=== PATIENT | male | born 1980 | race Caucasian/White ===

== ENCOUNTER 2017-11-10 00:57 | Inpatient (IN) | payer MEDICAID ==
[2017-11-10] MEDS ORDERED: IPRATROPIUM/ALBUTEROL 3 ML DEYVIAL IH ONE (01:04)
--- NOTE | 2017-11-10 01:09 | EDPHY ---
H & P HPI/ROS: HPI CHIEF COMPLAINT: Denies weakness, worsening shortness of breath, rash, edema peripheral, picc line clot. HISTORY OF PRESENT ILLNESS: Patient is a 36-year-old male, he is insulin- dependent diabetic, he states that he was at [facility] from October 24 until yesterday where he was released to rehab at [facility]. He arrives to the emergency room by EMS for shortness of breath and generalized weakness. EMS reports that they thought he was having allergic reaction to naficillin. Patient reports that he has a penicillin allergy however he has had a right arm PICC line of which she was getting nafcillin infused through. He has received multiple doses of this. He states he started feeling worsening shortness of breath tonight, and states that he has erythematous rash and not sure exactly how long it has been there for but thought it was worse tonight. Additionally the patient has a right arm PICC line. When they tried to infuse his antibiotic tonight they report that his PICC line it clotted. Due to constellation of his PICC line not working, rash, worsening peripheral edema, shortness of breath and generalized weakness he was sent to the emergency room for evaluation. Patient is currently wearing 5 L nasal cannula at [facility]. Past Medical History: Patient reports to me insulin-dependent diabetic, and recent hospitalization for pneumonia. Past Surgical History: Denies recent surgery Social History: Denies daily use drugs alcohol tobacco products. Resides and shortened [place]. Recent hospitalization at [facility]. Admitted to [facility] for rehab. Family History: Noncontributory ROS REVIEW OF SYSTEMS: A comprehensive 10 point review of systems is otherwise negative aside from elements mentioned in the history of present illness. Exam Constitutional appears nontoxic, triage nursing summary reviewed, vital signs reviewed, awake/alert. Noted to be hypoxic on room air 81%. Eyes normal conjunctivae and sclera, EOMI, PERRLA. HENT normal inspection, atraumatic, moist mucus membranes, no epistaxis, neck supple/ no meningismus, no raccoon eyes. Respiratory clear lung sounds throughout right lung field, however left lung field crackles throughout, diminished. Cardiovascular rate normal, regular rhythm, no murmur, no edema, distal pulses normal. Gastrointestinal soft, non-tender, no rebound, no guarding, normal bowel sounds, no distension, no pulsatile mass. Genitourinary no CVA tenderness. Musculoskeletal right arm PICC line. Does not appear infected. no midline vertebral tenderness, full range of motion, no calf swelling, no tenderness of extremities, no meningismus, good pulses, neurovascularly intact. Skin significant peripheral edema pitting 3+ bilaterally, edematous abdomen, additionally petechiae non blanchable throughout his legs and abdomen, as well as a waistline rash that appears to be fungal. Significant edema around his scrotum but nontender. Neurologic awake, alert and oriented x 3, AAOx3, moves all 4 extremities equally, motor intact, sensory intact, CN II-XII intact, normal cerebellar, normal vision, normal speech. Psychiatric normal mood/affect. Heme/Lymph/Immune no lymphadenopathy. Differential Diagnosis: Includes but is not limited to in a particular drug reaction, worsening pneumonia, significant peripheral edema, 3rd spacing of fluid, sepsis, DIC Medical Decision Making: Plan for this patient obtain records from [facility], chest x-ray, blood work, lactic acid, blood cultures, re-evaluate. Re-evaluation: Chest x-ray has been reviewed one-view. Complete white out of the left lung field. Patchy infiltrates seen throughout the right lung field. Given the look of this chest x-ray will proceed with CT angiogram chest. EKG interpretation by me on record in [facility] system. Impression time of EKG 119: Sinus tachycardia rate of 106. Micro amplitude noted throughout all leads. 0128AM: Due to this patient's micro amplitude seen on the EKG. I performed a bedside ultrasound cardiac window. The cardiac evaluation with bedside ultrasound performed by myself does not show a large effusion there is a trace effusion. The heart has good squeeze. Appears somewhat hyperdynamic. 0236: Patient's CT scan called to me by Dr. Lopez. This shows extensive pneumonia. Bilateral pneumonia infiltrates, cavitary lesions, bilateral pleural effusions, extensive pneumonia. 0237: I have ordered this patient broad-spectrum antibiotics including IV vancomycin and IV cefepime he has a penicillin allergy. Additionally at this time this patient is remarkably hemodynamically stable despite his x-ray and CT results. He does appear volume overloaded. I have held off on IV fluids. He has not been hypotensive. His blood work has been reviewed he has a white count that is not elevated. There is no bandemia or left shift. His current vitals blood pressure 116/72, heart rate 107, 90% on 5 L. He is afebrile. I have asked the hospitalist service to admit this patient. Given the extensive disease on his CT scan x-ray I have ordered him an intensive care unit bed for hypoxia and extensive pneumonia. Critical Care: Total Critical Care Time Spent Managing this Patient: 65 Minutes. This time was spent Exclusively with this patient. This Care was exclusive of procedures. The Organ System/life at risk was pulmonary This Patient was in Critical Condition because severe hypoxia, extensive pneumonia. Source: Patient, EMS Constitutional: Initial Vital Signs Temperature (C) 37.2 C 11/10/17 01:04 Heart Rate 107 H 11/10/17 01:04 Respiratory Rate 20 11/10/17 01:04 Blood Pressure 135/82 H 11/10/17 01:04 O2 Sat (%) 82 L 11/10/17 01:04 O2 Delivery Mode Nasal Cannula O2 (L/minute) 5 Allergies/Adverse Reactions: nafcillin Allergy (Verified 11/10/17 01:07) Penicillins Allergy (Verified 11/10/17 01:07) Home Medications: Medication Instructions Recorded Acetaminophen [Tylenol 325mg (*)] 650 mg PO Q6 PRN 11/10/17 Famotidine [Pepcid 20 MG (*)] 20 mg PO DAILY 11/10/17 Herbals/Supplements -Info Only 1 ea PO DAILY 11/10/17 Insulin Aspart [novoLOG] 6 - 10 unit SQ ACHS 11/10/17 Insulin Detemir [Levemir] 20 unit SQ DAILY 11/10/17 traZODone [traZODONE 50MG (*)] 50 mg PO HS 11/10/17 Medical Decision Making - Data Points Laboratory Results: Laboratory Results 11/10/17 01:00 11/10/17 01:38 Medications Given: Hydrocodone Bitart/Acetaminophen ([place] 5/325) 1 - 2 tab PO Q4HRS PRN PRN Reason: Pain, Moderate Able to Take PO Stop: 11/20/17 03:20 Last Admin: 11/12/17 16:22 Dose: 2 tab Albuterol (Proventil Neb) 3 ml IH QID BRITTNI Stop: 05/09/18 15:59 Last Admin: 11/12/17 21:31 Dose: Not Given Diphenhydramine HCl (Benadryl Cream) 1 rich TP QID PRN PRN Reason: Itching Stop: 05/09/18 15:07 Last Admin: 11/12/17 09:03 Dose: 1 rich Enoxaparin Sodium (Lovenox) 40 mg SC DAILY BRITTNI Stop: 05/09/18 08:59 Last Admin: 11/12/17 09:02 Dose: 40 mg Famotidine (Pepcid) 20 mg PO DAILY BRITTNI Stop: 05/10/18 08:59 Last Admin: 11/12/17 09:01 Dose: 20 mg Furosemide (Lasix Injection) 20 mg IVP BID@0900,1500 BRITTNI Stop: 05/09/18 14:59 Last Admin: 11/12/17 16:23 Dose: 20 mg Vancomycin HCl 1 gm/ Sodium (Chloride) 250 mls @ 250 mls/hr IV Q8H BRITTNI Stop: 12/10/17 16:59 Last Admin: 11/12/17 17:42 Dose: 250 mls Insulin Glargine (Lantus Syringe) 20 units SC DAILY BRITTNI Stop: 05/09/18 11:44 Last Admin: 11/12/17 09:38 Dose: 20 units Insulin Human Lispro (Humalog Lispro) 0 unit SC TIDMEAL BRITTNI PRN Reason: Protocol Stop: 05/09/18 07:59 Last Admin: 11/12/17 18:07 Dose: 4 units Nystatin (Mycostatin Powder) 1 rich TP BID BRITTNI Stop: 12/10/17 09:29 Last Admin: 11/12/17 09:03 Dose: 1 rich Trazodone HCl (Trazodone) 50 mg PO HS BRITTNI Stop: 05/09/18 20:59 Last Admin: 11/11/17 23:13 Dose: 50 mg Discontinued Medications Albuterol/Ipratropium (Duoneb) 3 ml IH EDNOW ONE Stop: 11/10/17 01:05 Last Admin: 11/10/17 01:21 Dose: 3 ml Furosemide (Lasix Injection) 20 mg IVP ONCE ONE Stop: 11/10/17 03:32 Last Admin: 11/10/17 04:01 Dose: 20 mg Furosemide (Lasix Injection) 20 mg IVP ONCE ONE Stop: 01/14/18 10:44 Last Admin: 11/10/17 11:17 Dose: 20 mg Furosemide (Lasix Injection) 20 mg IVP ONCE ONE Stop: 11/12/17 09:39 Last Admin: 11/12/17 10:24 Dose: 20 mg Cefepime HCl 2 gm/ Sterile (Water) 12.5 mls @ 150 mls/hr IV ONCE ONE PRN Reason: Protocol Stop: 11/10/17 02:31 Last Admin: 11/10/17 02:58 Dose: 12.5 mls Vancomycin/Sodium Chloride (Vancomycin 1 Gm (Premix)) 250 mls @ 250 mls/hr IV EDNOW ONE PRN Reason: Protocol Stop: 11/10/17 03:25 Last Admin: 11/10/17 02:59 Dose: 250 mls Albumin Human (Albumin 25 % (Premix)) 50 mls @ 0 mls/hr IV ONCE ONE PRN Reason: As Directed Stop: 11/10/17 03:32 Last Admin: 11/10/17 04:01 Dose: 50 mls Vancomycin HCl 1.25 gm/ (Dextrose) 250 mls @ 166.667 mls/hr IV Q8H [facility] Stop: 11/10/17 12:00 Last Admin: 11/10/17 09:23 Dose: 250 mls Magnesium Sulfate (Magnesium Sulf 2 Gm (Premix)) 50 mls @ 50 mls/hr IV ONCE ONE Stop: 11/10/17 19:02 Last Admin: 11/10/17 19:52 Dose: 50 mls Magnesium Sulfate/Dextrose (Magnesium Sulf 1 Gm (Premix)) 100 mls @ 100 mls/hr IV ONCE ONE Stop: 11/11/17 07:44 Last Admin: 11/11/17 07:56 Dose: 100 mls Calcium Gluconate (Calcium Gluconate 1 Gm (Premix)) 50 mls @ 100 mls/hr IV ONCE ONE Stop: 11/11/17 07:14 Last Admin: 11/11/17 07:57 Dose: 50 mls Nystatin (Mycostatin Oint 15gm) 1 rich TP BID [facility] Stop: 12/10/17 08:59 Last Admin: 11/11/17 08:01 Dose: 1 rich Departure - Departure Disposition: [facility] Acute Clinical Impression: Hypoxia, Multifocal pneumonia, Pleural effusion Pneumonia Qualifiers: Pneumonia type: due to unspecified organism Laterality: left Lung location: unspecified part of lung Qualified Code(s): J18.9 - Pneumonia, unspecified organism Anemia Qualifiers: Anemia type: unspecified type Qualified Code(s): D64.9 - Anemia, unspecified Volume overload Qualifiers: Hypervolemia type: unspecified Qualified Code(s): E87.70 - Fluid overload, unspecified Condition: Critical
[2017-11-10 01:11] LABS: PLATELET COUNT 386 10^3/uL (150-400)
[2017-11-10 01:20] LABS: INR 1.08 (0.83-1.16); PROTIME(PATIENT) 14.2 SEC (12.0-15.0)
--- NOTE | 2017-11-10 01:21 | CPEKG ---
Heart Rate: 106 RR Interval: 566 P-R Interval: 140 QRSD Interval: 72 QT Interval: 344 QTC Interval: 457 P [place]: 51 QRS [place]: 35 T Wave [place]: 36 EKG Severity - ABNORMAL ECG - EKG Impression: SINUS TACHYCARDIA EKG Impression: LOW VOLTAGE IN FRONTAL LEADS EKG Impression: CONSIDER ANTEROSEPTAL INFARCT Electronically Signed By: Braden Seymour 10-Nov-2017 06:33:47
[2017-11-10] MEDS ORDERED: IOPAMIDOL (ISOVUE 370) 100 ML BTL IV ONE (01:27)
[2017-11-10] MEDS ORDERED: VANCOMYCIN HCL/NORMAL SALINE 250 ML IV ONE (02:26)
[2017-11-10] MEDS ORDERED: CEFEPIME HCL 2 GM in STERILE WATER INJ 12.5 ML IV ONE (02:27)
[2017-11-10] MEDS ORDERED: ALBUTEROL 3 ML DEYVIAL IH PRN (03:21)
[2017-11-10] MEDS ORDERED: LORazepam 0.5 MG TAB PO PRN (03:21)
[2017-11-10] MEDS ORDERED: diphenhydrAMINE 25 MG CAP PO PRN (03:21)
[2017-11-10] MEDS ORDERED: ALBUMIN 25% 50 ML IV ONE (03:31)
[2017-11-10] MEDS ORDERED: FUROSEMIDE 20 MG/2 ML VIAL IVP ONE ×2 (03:31→10:43)
[2017-11-10] MEDS ORDERED: D50W 25 GM/50 ML SYR IVP PRN (03:55)
[2017-11-10] MEDS: HYDROCODONE/APAP 5/325 TAB PO PRN ×3 (04:12→20:01)
--- NOTE | 2017-11-10 06:15 | GHP ---
[f rep st] HISTORY AND PHYSICAL DATE OF ADMISSION: 11/10/2017 SOURCE: The patient provides history, appears reliable. His EMR was reviewed. Case discussed with ED provider and initial notes from [facility] were reviewed. CHIEF COMPLAINT: Shortness of breath. HISTORY OF PRESENT ILLNESS: This is a pleasant, 36-year-old gentleman with past medical history sign ificant for type 1 diabetes, reported to be brittle per patient, and chronic back pain, who presents to the emergency department from [facility] with complaints of shortness of breath and occluded PICC line. Patient with a complicated recent hospital stay from 10/24/2017 to 11/08/19 18 before being discharged to [facility]. The patient presented there with findings of multifocal pneumonia, sepsis and acute respiratory failure with hypoxia. The patient was noted to have bilater al pleural effusions. He was admitted and given IV antibiotics. Blood cultures did return positive for MSSA for which patient was transitioned off various antibiotic options to nafcillin through PICC. Since 11/07/2017 or so, patient reports that he has developed a significant amount of edema. The p atient reports that when he presented to [facility], he weighed 125 pounds. The patient reports weight gain to 216 pounds and increasing edema in all extremities, progressive dyspnea and cough. Th e patient reports persistent chills, no fevers, increased fatigue. Patient also reports development of a rash to his abdomen and chest. The patient states that he has a reported allergy to penicillin as a young child. Patient has been receiving nafcillin infusions in his PICC line since 11/03/2017. Patient's previous combination of antibiotics including 1 day of Rocephin and azithromycin, 1 day of vancomycin and cefepime, 1 day of clindamycin and several days of Unasyn. This patient had repeat b lood cultures on 10/28/2017 that, at time of discharge, showed no growth today. Patient reports that he underwent a thoracentesis. He was also noted to be pancytopenic, receiving 2 units of PRBC durin g his hospital stay without any evidence of acute bleeding. Labs were negative for DIC and negative for HIT antibody. Source was suspected to be related to patient's severe sepsis. He did not require any intubation or pressor support during his hospital stay. He was also treated for DKA in the sett ing of acute infectious process. He had multiple electrolyte deficiencies which were all replaced. The patient was also noted to be severely cachectic and malnourished upon arrival. I do not have an admission weight on available records. However, HIV was shown to be negative. The patient was recom mended to have GI followup. The patient was noted to have significant proteinuria and hypoalbuminemi a. The patient was recommended to be discharged on an ANJANA inhibitor. The patient also had an AFB sm ear and culture that was negative on a sputum sample. REVIEW OF SYSTEMS: GENERAL: Positive for chills. SKIN: The patient reports rash on his pannus, ab domen, chest. ENT: Patient reports some nasal congestion without any rhinorrhea. He also had some dry blood from his nostrils. No active bleeding. He feels secondary to oxygen. He also complains o f dry throat. No odynophagia. EYES: Patient denies any acute changes in vision or ocular pain. CV : Pleuritic left-sided chest pain which is stable. Patient with previous cardiac workup which was n egative. RESPIRATORY: Positive for shortness of breath and orthopnea. Positive cough. GI: Positi ve for nausea and diarrhea. No blood, melena, or hematochezia. : No dysuria or hematuria. Patie nt does complain of scrotal edema. MUSCULOSKELETAL: Knees and hips with hip pain, some generalized weakness. NEURO: Positive for a mild headache, numbness and tingling chronically in his feet and fi ngers due to neuropathy. PSYCH: The patient denies any anxiety or depression. Remainder review of systems negative except as noted above. ALLERGIES: Penicillin. The patient is unsure of reaction. He did receive this as a child. He has not had any anaphylaxis since starting nafcillin. HOME MEDICATIONS: As per [facility] list: Levemir 15 units subcu daily 0800, trazodone 50 mg p.o. at bedtime for sleep, famotidine 20 mg p.o. twice daily, lactobacillus 1 tab p.o. twice daily, Lasix 20 mg p.o. twice daily, Reglan 5 mg p.o. twice daily, NovoLog low-dose sliding scale, DuoNeb 4 times daily, nafcillin 2 g q.4, last dosing due 11/23/2017 at 2300. Percocet 5/325 1 tab p.o. q.12 h ours p.r.n. for pain. PAST MEDICAL HISTORY: Significant for brittle type 1 diabetes, history of DKA, pneumonia, chronic ba ck pain with a history of sciatic, neuropathy. History of MSSA bacteremia in recent hospitalization. PAST SURGICAL HISTORY: Significant for thoracentesis, PICC line, tonsillectomy, adenoidectomy, and l umbar spine fusion. FAMILY HISTORY: Father with history of lymphoma, diabetes type 1. Mother with prediabetes. SOCIAL HISTORY: Patient residing at [facility] for rehab. He does not smoke, drink, or utilize a ny IV illicit drugs. He does use marijuana occasionally. CODE STATUS: Full. Patient desires his mother, Esperanza Pepper, to act as proxy if needed. PHYSICAL EXAM: Upon arrival to the ED, blood pressure 135/82, heart rate is 107, respiratory rate 20 , O2 sats 82% on room air with a temperature 37.2. Current vitals at time of interview, blood pressu re 121/75, heart rate 105, respiratory rate 26, O2 saturation 93% on 5 L by nasal cannula, temperatur e 37.1. GENERAL: No acute distress. Chronically ill-appearing gentleman lying quietly in bed. Dif fusely edematous, appears older than stated age. Slightly pale. HEAD: Normocephalic, atraumatic. EYES: Extraocular muscles grossly intact. Pupils equal, round, react to light bilaterally and symme tric. No scleral icterus or conjunctival injection. ENT: Mucous membranes appear slightly dry. No oropharyngeal erythema or exudates or thrush. Dentition is fair and intact. NECK: Supple. Trache a midline. CV: Slightly tachycardic with regular rhythm. No murmurs, rubs, or gallops appreciated. RESPIRATORY: Mild increased work of breathing while at rest with talking, but patient is able to c omplete full sentences without any issues. Lung perea are diminished extensively on the left and di minished on the right base with otherwise clear middle, upper lobes on the right with a few crackles. ABDOMEN: Edematous, obese with a positive fluid wave. The patient without significant tenderness to palpation. Limited exam secondary to body habitus with edema. Positive bowel sounds. : Scrot al edema. No Huber in place. MUSCULOSKELETAL: Generalized deconditioning, weakness. Patient is ab le to turn independently. He is not able to sit up independently. Able to move all extremities. St rength 4/5 in upper and lower extremities but symmetric. NEURO: Grossly nonfocal. No facial droopi ng. Moves all extremities. Generalized weakness. PSYCH: Patient is slightly anxious, but he is pl easant, cooperative and otherwise thought process content and questions are all appropriate. LABORATORY STUDIES: WBC is 5.07, hemoglobin and hematocrit is 8.6 and 27.0, MCV is 95.5, platelet co unt 386. No bands. No left shift. PT is 14.2, INR is 1.08, PTT is 32.9. ABG: The pH is 7.48, pCO 2 is 40, PO2 is 59, O2 saturation 91% with a base excess of 5.8. Lactate is 0.9. Initial sodium 135 , potassium 5.5, chloride 100, CO2 is 30, anion gap 5, BUN 27, creatinine 0.5, glucose 252. Calcium 7.8, total bilirubin 0.1, ALT 24, AST is 20, alkaline phosphatase is 227. Troponin is negative. BTN P is 3910. Total protein 5.1, albumin is 2.0. Repeat BMP shows sodium of 135, potassium 5.3, chlori de 99, CO2 is 30, anion gap 6, BUN 28, creatinine 0.6, glucose 250, calcium 7.7. Urinalysis: Specif ic gravity 1.032, protein 3+, ketones negative, blood 3+, RBCs 50-182, 1+ glucose, otherwise negative . Flu A/B negative. Blood cultures x2 pending. Respiratory panel pending. EKG, reviewed myself, is sinus tachycardia in the 100s with significantly diminished voltage, Q-wave V2. No acute ST elevations. QTc is 457. Chest x-ray: Image reviewed by myself, report is pending, showing complete opacification of the left lung and patchy infiltrates on the right. CTA chest: CT reviewed with ED provider, preliminary Radiology report reviewed showing extensive lavern ateral pulmonary consolidation with early cavitation in the right upper lung, mediastinal lymphadenop athy, likely reactive. Large bilateral pleural effusions. Imaging report available from [facility] for comparison. Report only showing dense consolidative changes within the lungs, most consistent with multilobar pneumonia. Air-filled spaces within the l ingula, may be from distended peripheral bronchi or air filled cavities within the lung, mediastinal or hilar adenopathy and chronic appearing compression fracture L1. That is the chest x-ray. CTA rep ort is not available for review. Per discharge summary, hospitalist noted repeat CT with dense conso lidation and "drowned lung." ASSESSMENT AND PLAN: A pleasant 36-year-old gentleman with brittle diabetes, uncontrolled, who prese nts 1 day after discharge from [facility] with multilobar pneumonia, acute hypoxic respiratory fa ilure, and progressive dyspnea. 1. Multifocal pneumonia with a history of Methicillin sensitive Staphylococcus aureus bacteremia. T he patient was previously on nafcillin. He reports he developed a rash and has a listed allergy, but he has no known anaphylactic or true allergy listed. The patient does not desire to continue on naf cillin at this time. He was placed on vancomycin and cefepime in the emergency department. I will c onsult Infectious Disease this morning. Also repeat blood cultures have been obtained. Lactate is n egative. The patient without criteria for sepsis. 2. Acute hypoxic respiratory failure. Continue with supplemental oxygen. Patient does continue to desaturate with any kind of movement on 5 L oxygen, but does not have any evidence of acute respirato ry distress currently. We will continue with supplemental oxygen at this time, but he does desire to be a full COR if needed. 3. Bilateral pleural effusions, likely related to patient's pneumonia. No previous history of conge stive heart failure. However, echocardiogram is pending. Also try to obtain additional medical jeffry rd as patient reports that he underwent a thoracentesis during his hospital stay. 4. Methicillin sensitive Staphylococcus aureus bacteremia. Will obtain an echocardiogram. The imer ent on vancomycin and cefepime at this time. Infectious disease consultation as above. Blood cultur es are pending. 5. Anasarca, likely multifactorial including setting of severe sepsis with recent hospital stay. Th ere is severe protein-calorie malnutrition and/or proteinuria. The patient will continue with Lasix. Will pre dose with albumin to increase patient's oncotic pressure and hopefully improve some diures is. The patient reports that his initial weight was 125 pounds upon admission to [facility]. Hi s initial H and P does note that he was significantly cachectic and thin with appearing wasting and s o this does appear to be acute development of edema. We will also obtain an echocardiogram as noted above. 6. Hyperkalemia, is minimally elevated, repeat is down trending. The patient will be receiving Lasi x. We will plan to repeat a basic metabolic panel later this morning. 7. Anemia with a history of pancytopenia with a previous negative workup for disseminated intravascu lar coagulation and heparin-induced thrombocytopenia antibody. Patient's hemoglobin and hematocrit a t this time are currently stable. He is not requiring any transfusions at this time. There is no ev idence of active bleeding, so we will plan to continue to monitor at this time. The patient will be typed and screened however, given his recent history. 8. Diabetes type 1, uncontrolled. We will plan to resume patient's Lantus of 15 units and a low-dos e sliding scale. Patient reports history of brittle diabetes and more recently has been more hypogly cemic than normal. 9. Hypoalbuminemia, is likely multifactorial including severe protein-calorie malnutrition, proteinu matt and acute recent sepsis and acute illness. We will check a pre-albumin, dietary consult in the [facility]. The patient has received Lasix with pre-dosed albumin as above. 10. Proteinuria. We will continue to monitor patient's albumin for further evaluation for his prote inuria. 11. Chronic pain and neuropathy. Continue with Page 5/325, morphine available force any severe peggy n. Consider gabapentin with a history of neuropathy. 12. Fluid, electrolyte, nutrition. The patient appears to be significantly fluid overloaded at this time. Will attempt some diuresis. Electrolytes will be monitored closely with recent history of mu ltiple electrolyte abnormalities and replace if needed. Patient will be started on a diabetic diet. 13. Prophylaxis. Hold sequential compression devices secondary to significant edema. Lovenox. Geovany l monitor closely with history of recent pancytopenia. 14. Code status is full. Patient desires his mother, Mel Pepper, to act as proxy if needed. DISPOSITION: Patient has been admitted to inpatient status within the ICU given the severity of his pneumonia and pulmonary findings with hypoxia. Anticipate greater than 2 midnight stay. CONSULTANTS: Pulmonology and Infectious Disease. /[id number]/MODL
--- NOTE | 2017-11-10 07:24 | PDMN ---
Medical Necessity Medical necessity: C/M review: est. > 2 MN LOS for eval and TX of acute and persistent - multifocal pneumonia, hypoxic respiratory failure, bilateral pleural effusions, MSSA bacteremia, anasarca, hyperkalemia, anemia, hypoalbuminemia, proteinuria, severe protein-calorie malnutrition, uncontrolled type 1 diabetes, requiring planned Infectious disease consult, ongoing IV Cefepime, IV Vancomycin, cardiac monitoring, pulse oximetry, supplemental O2 in ICU, comorbid chronic pain and neuropathy, history of 10/24/2017-11/08/2017 hospitalization for multifocal pneumonia, sepsis, MSSA bacterermia, acute hypoxic respiratory failure, discharge to [facility], brittle type 1 diabetes , DKA, pneumonia per H/P.
[2017-11-10] MEDS: INSULIN LISPRO 100 UNIT/ML SC SCH ×3 (07:57→18:00)
[2017-11-10] MEDS: ENOXAPARIN 40 MG/0.4 ML SYR SC SCH (07:58)
[2017-11-10] MEDS: NYSTATIN 15 GM OINTMENT TP SCH ×2 (07:59→09:28)
[2017-11-10] MEDS ORDERED: VANCOMYCIN 1.25 GM in D5W 250 ML IV SCH (09:00)
--- NOTE | 2017-11-10 09:13 | HOSPPROG ---
Hospitalist Progress Note Assessment/Plan: #MSSA bacteremia/multifactorial PNA: -I personally reviewed [facility] records. Was on multiple abx course including CTX , azithro, Vanc/cef and finally Nafcillin. Presented here with allergicr rxn, thus change to Vancomycin per ID recommendations. Blood/sputum cultures pending. Echo at [facility] with no vegetations #RUE swelling: PICC line in place. No DVT #Acute hypoxic resp failure: due to PNA, RHF. Negative resp PCR. CT with dense opacities. Echo today with PASP 57mmHg, normal LVEF -Lasix 40mg IV BID #Drug-reaction: due to nafcillin, which was added to allergy list. Change to Vancomycin. PRN Benadryl -no oral involvement or signs of Marlo's Hugh's #Anasarca: due to RHF. Echo as stated above. #Uncontrolled Type 1 DM: hyperglycemic here. Lantus 20 units here (Levimer at home), SSI. #Hyperkalemia: no peaked T-waves. Repeat BMP #Severe protein caloric malnutrition: pre-alb 8.5. Nutrition consult #Diet: DM #DVT ppx: Lovenox #Disp: warrants inpatient admission for IV abx, monitored diuresis #Critical care time spent 50 min reviewing OSH records, imaging here and bedside. Discussed case with Dr. Melchor Subjective: itching over extremities Objective: Vital Signs Temp Pulse Resp BP Pulse Ox 36.9 C 106 H 20 120/77 95 11/10/17 07:40 11/10/17 07:40 11/10/17 07:40 11/10/17 07:40 11/10/17 07:40 11/09/17 11/10/17 11/11/17 05:59 05:59 05:59 Intake Total 545 Output Total 1350 350 Balance -805 -350 PT 14.2 SEC (12.0-15.0) 11/10/17 01:00 INR 1.08 (0.83-1.16) 11/10/17 01:00 - Time Spent With Patient Time Spent with Patient: greater than 35 minutes Time Spent with Patient: Greater than 35 minutes spent on this patients care, greater than 50% of time spent counseling, educating, and coordinating care regarding the above mentioned plan. - Physical Exam Constitutional: uncomfortable Eyes: PERRL Ears, Nose, Mouth, Throat: moist mucous membranes, other (no oral lesions) Cardiovascular: regular rate and rhythym, no murmur, rub, or gallop, edema Respiratory: other (bronchia breath sounds AILEEN, decreased BS at bases) Genitourinary: other (scrotal edema) Skin: other (pink papular rash over chest and extremities) Musculoskeletal: full muscle strength Neurologic: AAOx3, CN II-XII Intact ICD10 Worksheet Patient Problems: Problems Problem Status Onset Anemia Acute Hypoxia Acute Multifocal pneumonia Acute Pleural effusion Acute Pneumonia Acute Volume overload Acute
[2017-11-10] MEDS ORDERED: VANCOMYCIN 1.5 GM in D5W 250 ML IV SCH (10:00)
--- NOTE | 2017-11-10 10:06 | GCON ---
[f rep st] CONSULTATION INFECTIOUS DISEASE CONSULT DATE OF CONSULTATION: 11/10/2017 REFERRING PHYSICIAN: Abby Huffman MD REASON FOR CONSULTATION: To assist in the management of this 36-year-old male status post recent prolonged admission at [facility] for MSSA bacteremia and necrotizing pneumonia, now admitted for probable drug eruption and volume overload. HISTORY OF PRESENT ILLNESS: The patient is a 36-year-old male whose previous medical history notable for the followin. Type 1 diabetes mellitus, poorly controlled, with history of DKA. 2. Chronic back pain with history of sciatica. Regarding his present issues, please note that the history was obtained from the patient as well as extensive notes in [facility]. The patient was admitted to [facility] from October 24 through November 09, 2017. [facility] with a history of progressive weakness for about a week prior to admission and severe left pleuritic chest pain. There was no history of fevers. The patient had a CT scan of the chest that showed multilobar necrotizing pneumonia. He was initially started on azithromycin and ceftriaxone. Blood cultures obtained on admission on October 24 grew MSSA 2/ 4 bottles, and on October 25, 1/4 bottles. Blood cultures were sterile on October 28. The patient underwent a transthoracic echocardiogram on October 25 that revealed an ejection fraction of 67%, trace mitral valve regurgitation , and aortic annular calcifications. He also had a small pericardial effusion. There was no evidence of endocarditis on TTE. Infectious Disease was consulted. Reviewing his antibiotics, it appears that the patient initially, as outlined above, was on ceftriaxone, azithromycin for 2 days, then switched to vancomycin, cefepime, and clindamycin for a possible aspiration event, which he was on from October 26 through the , then Unasyn from 10/27 to November 02. The patient was started on nafcillin 2 g IV q.4 hours on November 03. A repeat CT scan performed on October 31 compared with admission showed "Overall improvement in left lung consolidation with improved aeration of both the upper and lower lungs. There was evidence of small areas of cavitation centrally but no organized abscess." "There is improvement in the dense consolidation in the right upper lobe. Multiple new patchy areas of mild infiltrate involving all lobes of the lung, and stable left pleural effusion and worsening right pleural effusion. These appear to be free-flowing effusions with no definite loculation or evidence of empyema." He was also found to have stable upper mediastinal lymphadenopathy. Of note, the patient had a thoracentesis during his hospitalization for the right effusion. 510 cc of straw-colored fluid was removed. The culture was negative, and this was deemed transudative by Light's criteria. Also, Infectious Disease sent multiple tests including HIV antibody/antigen testing, which was negative, and serum QuantiFERON, which was also negative. The patient was discharged on November 09 with plans on continuing nafcillin for at least another 3 weeks as per Infectious Disease. The patient went to [facility]. Upon discharge, he was afebrile, but speaking with the patient, he states that he gained a significant amount of weight, particularly during the end of his hospitalization, and reports an over 80-pound weight gain, which he feels is from fluid. He also reports new onset of an erythematous, itchy rash on his chest, abdomen, and arms approximately 3-4 days prior to discharge. He states that the doctors ordered topical Benadryl for this. The patient was discharged to [facility] and presented to [facility] early this morning complaining of shortness of breath and worsening drug eruption. A CT scan at our facility, that I reviewed with Dr. Shaikh, showed bilateral pleural effusions and significant multilobar pneumonia and consolidation with 2 areas of cavitation in the left lung and hepatization of a large area of left lung. Nafcillin was discontinued, and the patient was started on vancomycin and cefepime. I am now asked to assist in his management. Speaking with the patient today, he states that he is still coughing and bringing up clear phlegm. He denies fevers, shaking chills, and has not had a bowel movement in several days. No significant abdominal discomfort. He is hungry. He is also complaining of discomfort in his scrotum given significant edema in this area. Those are his main complaints. Otherwise 10 systems are reviewed and all are negative. PREVIOUS MEDICAL HISTORY: As outlined above. PREVIOUS SURGICAL HISTORY: 1. History of tonsillectomy. 2. History of lumbar spine fusion. ALLERGIES: The patient reports a history of an allergy to penicillin as a young child with development of a rash. He has not been on penicillin since then. It appears now that he has an allergic reaction with a drug eruption to nafcillin, which will be listed as a drug allergy moving forward. MEDICATIONS: Presently include vancomycin, cefepime, insulin, Zofran. SOCIAL HISTORY: The patient lives in [place] with his brother and his brother' s children in a trailer park. History of tobacco many years ago. No other illicit substances. He works at [employer] in the [place]. No recent travel. Occasional marijuana use. No alcohol. FAMILY HISTORY: Father with history of lymphoma and diabetes type 1. Mother with prediabetes. PHYSICAL EXAMINATION: VITAL SIGNS: T-current is 36.9, T-max is 37.2, heart rate is 106, blood pressure 128/77, 95% on 4 L. GENERAL: Obese gentleman, clearly volume overloaded with anasarca, no apparent distress, nontoxic. HEENT : Atraumatic, normocephalic. Pupils equal, round, reactive to light. Extraocular movements are intact. No conjunctival injection, icterus, petechiae. Mucous membranes moist. No oral lesions noted. Dentition in poor repair. No sinus process tenderness. NECK: Trachea is midline. No cervical or supraclavicular lymphadenopathy. CARDIOVASCULAR: Tachycardic, S1, S2. No rubs, gallops, or murmurs audible. LUNGS: Mildly increased respiratory effort. Coarse breath sounds midlung perea with decreased breath sounds at the bases. ABDOMEN: Obese, soft. No tenderness to palpation. : Markedly edematous scrotal sac. EXTREMITIES: No clubbing, cyanosis, or edema. The patient has a PICC line in his right upper extremity without swelling, erythema , or tenderness. SKIN: Fine scarlatiniform, maculopapular rash noted along chest, abdomen, arms and legs. There are no bullae. There are no target lesions. He has no lesions in his mucous membranes. His inguinal area is notable for skin maceration and erythema consistent with candidal intertrigo. NEUROLOGIC: He is alert and oriented x3. He is moving all 4 extremities. No sensory or motor deficits. LABORATORY DATA: Microbiologic data: Blood cultures x2 are pending. Please note that blood cultures reviewed in [facility] are as outlined in the HPI. The patient cleared his blood cultures quickly with negative blood cultures on October 28. RADIOGRAPHIC DATA: As outlined above. IMPRESSION: Unfortunate 36-year-old male with poorly controlled diabetes mellitus status post prolonged hospitalization at [facility] for DKA, malnutrition , and methicillin-susceptible Staphylococcus aureus bacteremia with concomitant necrotizing pneumonia. He was discharged to [facility] yesterday, with plans on completing 3 additional weeks of nafcillin. During his hospitalization , there was no evidence of endocarditis on TTE or empyema necessitating decortication/video-assisted thoracic surgery, and his blood cultures sterilized expeditiously. He is now admitted with volume overload and a new drug eruption, almost certainly secondary to nafcillin. There is no evidence of Marlo Hugh syndrome, or AIN. Notably, although the patient's oxygen requirements are fairly low, his chest CT seems to have worsened compared to CT scan done at [facility] prior to discharge. Thankfully, there is no evidence of other complications related to Staph aureus bacteremia, such as septic arthritis. He also does not appear to have a nosocomial process, such as Clostridium difficile. The patient is significantly volume overloaded, and it should be noted that Nafcillin derived its name from the high sodium (Na) content within this antibiotic. PLAN: 1. Nafcillin has been discontinued and is now listed as an allergy. 2. Continue Vancomycin with goal trough of 15. I am hoping that once his drug eruption has resolved, we can consider a trial of Cefazolin, as I do not see this has been attempted at [facility]. 3. Repeat blood cultures were drawn here for completeness' sake. 4. Would diurese the patient as you are doing and hold off on thoracentesis for now. 5. HIV testing was performed at [facility] and was documented to be negative. 6. Consider bronchoscopy moving forward if he clinically deteriorates. Thank you very much for consulting Infectious Disease. Will continue to follow this patient with you. Over 90 minutes was spent with this patient and reviewing records from outside hospital. /[id number]/MODL MTDD
[2017-11-10] MEDS ORDERED: CEFEPIME HCL 1 GM in STERILE WATER INJ 11.3 ML IV SCH (11:00)
[2017-11-10] MEDS: NYSTATIN POWDER 15 GM BTL TP SCH ×2 (11:17→20:02)
[2017-11-10] MEDS: INSULIN GLARGINE 100 UNITS/ML UNIT SC SCH (11:52)
--- NOTE | 2017-11-10 13:23 | ECHO ---
[email or web address] [address] [address] Main: [phone] Fax: Transthoracic Echocardiogram Name: GARRETT SINGLETON MR#: [id number] Study Date: 11/10/2017 Study Time: 09:33 AM Date of : 1980 Age: 36 year(s) Height: 175.3 cm (69 in.) Weight: 96.16 kg (212 lb.) BSA: 2.12 m2 Gender: Male Examination: Echo Indication: edema, Cardiac: dyspnea, bacteremia Image Quality: Adequate Contrast: Requested by: Abby Huffman BP: 121 mmHg/86 mmHg Heart Rate: Rhythm: Indication: edema, Cardiac: dyspnea, bacteremia Procedure Staff [employer] Offbearer: Jeaneth Darling Reading Physician: Vic Adkins Requesting Provider: Conclusions: Normal global systolic LV function. EF is 74 %. Normal RV function. Right ventricular pressure overload is present. Right ventricular volume overload is present. Mild tricuspid regurgitation is present. Right Ventricular systolic pressure is measured at 57 mmHg. Small pericardial effusion. No echocardiographic evidence of hemodynamic compromise. Moderate pulmonary hypertension paged Dr. Garcia to call me Measurements: Chambers Valvular Assessment AV/MV Valvular Assessment TV/PV Normal Normal Normal Name Value Range Name Value Range Name Value Range IVSd (2D): 1.1 cm (0.6 cm-1.1 AV meanP mmHg ( - ) TR Vmax: 3.41 mm/s ( - ) cm) LVOT Vmax: 1.13 m/s (0.7 m/s-1.1 TR PGmax: 47 mmHg ( - ) LVDd (2D): 4.6 cm (4.2 cm-5.9 m/s) syst. PAP: 57 mmHg ( - ) cm) MV E Vmax: 1.33 m/s ( - ) PV Vmax: 1.06 m/s (0.6 m/s-0.9 LVDs (2D): 2.8 cm (2.1 cm-4 MV A Vmax: 1.04 m/s ( - ) m/s) cm) MV E/A: 1.28 ( - ) PV PGmax: 4 mmHg ( - ) LVPWd (2D): 1.0 cm (0.6 cm-1 cm) LVEF (BP): 74 % (>=55 %) RVDd(2D): 3.9 cm (1.9 cm-3.8 cmmm) Continued Measurements: Chambers Valvular Assessment AV/MV Valvular Assessment TV/PV Patient: GARRETT SINGLETON Study Date: 11/10/2017 Page 1 of 2 09:33 AM Name Value Name Value Name Value LADs Lon.9 cm MV DecTime: 148 m/s CVP (est.): 10 mmHg LA Area: 18.2 cm2 LA Volume: 48 ml LA Volume Index: 22.6 ml/m2 TAPSE: 1.9 cm Additional Vessels Name Value Ao Ascendin.6 cm Findings: Left Ventricle: Normal size left ventricle. Normal global systolic LV function. EF is 74 %. No regional wall motion abnormality. Right Ventricle: Upper normal size right ventricle. Normal RV function. Right ventricular pressure overload is present. Right ventricular volume overload is present. Left Atrium: The left atrium is normal in size. Right Atrium: The right atrium is normal in size. Mitral Valve: The mitral valve is normal in appearance and function. Trivial mitral valve regurgitation. No mitral stenosis is present. There is no mitral valve vegetation. Aortic Valve: The aortic valve is normal in appearance and function. There is no aortic valve regurgitation. No aortic valve stenosis is present. There is no aortic valve vegetation. Tricuspid Valve: The tricuspid valve is normal in appearance and function. Mild tricuspid regurgitation is present. No tricuspid valve vegetation. Right Ventricular systolic pressure is measured at 57 mmHg. Pulmonic Valve: The pulmonic valve is normal in appearance and function. Trivial pulmonic valve regurgitation. There is no pulmonary valve vegetation. Aorta: Normal size ascending aorta measuring 2.6 cm. IVC: The IVC is normal sized. There is less than 50% respiratory excursion. Pericardium: Small pericardial effusion. No echocardiographic evidence of hemodynamic compromise. (No Signature Object) Patient: GARRETT SINGLETON Study Date: 11/10/2017 Page 2 of 2 09:33 AM [id number]
[2017-11-10] MEDS ORDERED: FUROSEMIDE 40 MG/4 ML VIAL IVP SCH (15:00)
[2017-11-10] MEDS: FUROSEMIDE 40 MG/4 ML VIAL IVP SCH (15:02)
[2017-11-10] MEDS ORDERED: PROTOCOL MAGNESIUM 1 DOSE IV PRN (15:40)
[2017-11-10] MEDS ORDERED: PROTOCOL CALCIUM 1 DOSE IV PRN (15:40)
[2017-11-10] MEDS ORDERED: PROTOCOL POTASSIUM 1 DOSE MISC PRN (15:40)
[2017-11-10] MEDS ORDERED: PROTOCOL K PHOSPHATE 1 DOSE IV PRN (15:40)
[2017-11-10] MEDS: DIPHENHYDRAMINE CREAM TP PRN ×2 (16:32→19:41)
--- NOTE | 2017-11-10 16:52 | GCON ---
[f rep st] CONSULTATION PULMONARY CRITICAL CONSULTATION DATE OF CONSULTATION: 11/10/2017 REASON FOR CONSULTATION: Pneumonia, volume overload, drug eruption. HISTORY: The patient is a pleasant 36-year-old with underlying brittle diabetes. He was recently ho spitalized at [facility] from October 24 through November 09, yesterday, and was discharged t o [facility]. His course at [facility] was prolonged and related to a severe pneumonia second suzy to MSSA. He became volume overloaded there. Cardiac echo was normal, with normal left ventricul ar ejection fraction. He underwent thoracentesis which was transudative. Diffuse left lung consolid ation was improving, but was still present to some degree on discharge. A detailed review of his cou rse can be found in Dr. Aldana's note. In any case, following discharge to [facility], he had increased rash and itching. He has been co ntinued on intravenous nafcillin, a sodium/volume load. He has gained apparently approximately 80 po unds. He was thus sent back to the hospital, ending up in our emergency department. CT scan of the chest s howed relatively large bilateral pleural effusions and evidence of significant consolidation, especia lly of the left upper lung. Nafcillin was discontinued. He apparently did have a penicillin drug er uption when he was a child. He is now on vancomycin alone per recommendations of Infectious Disease. Clinically, he is doing well. His respiratory status is significantly better than his CAT scan. He is on 4 L of oxygen and denies significant shortness of breath or chest pain. Blood sugars remain el evated. He complains mostly of edema/fluid retention. PAST MEDICAL HISTORY: Remarkable for his diabetes. MEDICATIONS: At [facility], included NovoLog insulin by sliding scale a.c. and h.s., Levemir 20 u nits daily, Pepcid, and trazodone. ALLERGIES: Penicillin in the past, now nafcillin. SOCIAL HISTORY: The patient has been living with his brother. He will need to find a new place to [facility] following his discharge from here or [facility]. Tobacco is negative. Significant alcohol is negative. 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 FAMILY HISTORY: Positive for diabetes and lymphoma. REVIEW OF SYSTEMS: A 10-point review of systems is largely negative, except as mentioned in the HPI. He does have a history of lumbar disease and is status post fusion. PHYSICAL EXAMINATION: GENERAL: Reveals a pleasant gentleman who is lying comfortably in bed. VITAL SIGNS: Oxygen is in place at 4 L with saturations of 95%. Blood pressure is 112/77, heart rate 105 with sinus rhythm on the monitor. He is afebrile. Respiratory rate is approximately 20. HEENT: M ucous membranes are moist. Pupils appear equal. NECK: Unremarkable for lymphadenopathy or thyromeg baudilio. Jugular venous distention is difficult to assess as his neck is somewhat large. CHEST: Reveal s decreased breath sounds bilaterally, but air movement is certainly adequate. There are rales and c onsolidative changes on the left. Breath sounds are diminished with dullness at both bases. HEART: Tachycardic. There are no significant murmurs. There is a soft systolic murmur. P2 may be elevate d. ABDOMEN: Somewhat overweight with anasarca related to the flanks. There is no tenderness. Rajiv l sounds are present. There is no obvious organomegaly. EXTREMITIES: Remarkable for 2+ edema/anasa rca. IMAGING: CT scan of the chest on admission is as outlined in the HPI. There is bilateral pulmonary consolidation, with hepatization of the left upper lobe. One area of early cavitation may be present . There are moderate to large bilateral pleural effusions with some associated basilar atelectasis. There is reactive lymphadenopathy in the mediastinum. There is no evidence of pulmonary embolic dis ease. Cardiac echo was repeated here. Left ventricular ejection fraction is 74%. Right ventricular pressure/volume overload is present, and the estimated right ventricular systolic pressure is 57. N o pericardial effusion was noted. No evidence of vegetations. Venous Doppler ultrasound of the doctors hospital lower extremity where his PICC line is in place shows no evidence of clot or DVT. LABORATORY: White blood cell count is 5000, hematocrit 27, platelets 386,000. PT and PTT are normal on admission. Admission blood gas early this morning showed a pH of 7.48, pCO2 of 40, and PO2 of 59 , with 91% saturation on 5 L. Lactate was normal at less than 1. Sodium is 132, potassium 4.8, BUN 27 with creatinine 0.5, glucose is 347, phosphorus 2.9, magnesium 1.4, calcium 7.9. Prealbumin was l ow at 8.5. Urinalysis was remarkable for protein and red blood cells. He did not have a Huber feliz ter in. Influenza screen was negative. ASSESSMENT: 1. Recent severe methicillin sensitive Staphylococcus aureus pneumonia with persistent consolidative changes bilaterally, especially related to the left upper lobe where hepatization is present. Despi te these impressive changes, clinically, he is doing quite well. He is on 4 L. He is not toxic, not febrile. Antibiotics are being continued. 2. Volume overload. The patient is significantly volume overloaded secondary to his recent hospital ization and salt load related to nafcillin. This has now been discontinued. Diuresis has been initi ated. His volume overload is associated with anasarca as well as pleural effusions. There is no renetta dence of infected pleural fluid or empyema. Thoracentesis at [facility] was transudative. If th ramana do not respond to diuresis, then repeat thoracentesis could be considered. 3. Drug eruption presumably secondary to penicillin/nafcillin. This has been stopped. This is not a severe drug eruption and, other than itching, he has no significant symptoms. 4. Insulin dependent diabetes mellitus. He is on sliding scale coverage, which will be adjusted bas ed on his glucoses. Initial glucoses on admission are high. PLAN: The patient will initially be kept in the intensive care unit. Bronchopulmonary therapies, in cluding bronchodilators, IS, and antibiotics for pneumonia will be continued. Vancomycin is initiall y recommended by Infectious Disease. Pulmonary status will be followed closely. If he deteriorates, bronchoscopy would be considered. There is no indication for this now, as airways do appear to be p atent and he has no significant secretions. Diuresis will be maintained. Glucoses will be followed and covered appropriately. He will be allowed to eat with a diabetic diet. Repeat blood cultures self ve been obtained. Further plans and recommendations will be made based on his progress over the next 12-24 hours. /[id number]/MODL
[2017-11-10] MEDS: VANCOMYCIN 1 GM in NS 250 ML IV SCH (17:17)
[2017-11-10] MEDS: ALBUTEROL 3 ML DEYVIAL IH SCH ×2 (17:51→21:46)
[2017-11-10] MEDS ORDERED: MAGNESIUM SULF 2 GM/WATER 50 ML IV ONE (18:03)
--- NOTE | 2017-11-10 18:04 | ASMTCMCOM ---
CM Note CM Note Notes: 36 year old male admitted after being discharged from [facility] and going to [facility] for rehab and continued care. Sent to [facility] for Hypoxia, PNA, Bilat PE, Hyperkalemia, Anemia. Patient is very weak. CM to follow for discharge, will probably return to [facility]. Date Signed: 11/10/2017 06:03 PM Electronically Signed By:Katia Lopez LCSW
[2017-11-10] MEDS: traZODone 50 MG TAB PO SCH (20:01)
[2017-11-11] MEDS: VANCOMYCIN 1 GM in NS 250 ML IV SCH ×3 (00:40→17:36)
[2017-11-11] MEDS: ALBUTEROL 3 ML DEYVIAL IH SCH ×4 (05:58→20:36)
[2017-11-11] MEDS ORDERED: MAGNESIUM SULF 1 GM/DEXTROSE 100 ML IV ONE (06:45)
[2017-11-11] MEDS ORDERED: CALCIUM GLUCONATE 50 ML IV ONE (06:45)
[2017-11-11] MEDS: INSULIN LISPRO 100 UNIT/ML SC SCH ×3 (07:56→17:47)
[2017-11-11] MEDS: FAMOTIDINE 20 MG TAB PO SCH (07:57)
[2017-11-11] MEDS: ENOXAPARIN 40 MG/0.4 ML SYR SC SCH (07:57)
[2017-11-11] MEDS: FUROSEMIDE 40 MG/4 ML VIAL IVP SCH ×2 (07:58→14:18)
[2017-11-11] MEDS: INSULIN GLARGINE 100 UNITS/ML UNIT SC SCH (07:58)
[2017-11-11] MEDS: NYSTATIN 15 GM OINTMENT TP SCH (08:01)
[2017-11-11] MEDS: NYSTATIN POWDER 15 GM BTL TP SCH ×2 (08:01→23:13)
[2017-11-11] MEDS ORDERED: Herbals/Supplements -Info Only PO SCH (09:00)
--- NOTE | 2017-11-11 09:49 | PDINTPN ---
Still Operator Brandy Progress Note Assessment/Plan: Assessment/plan: * Recent severe methicillin sensitive Staph aureus pneumonia-currently on vancomycin. Per Infectious Disease. Chest x-ray with near whiteout of left lung. * Respiratory failure secondary to pneumonia-on 4 L supplemental oxygen. Patient breathing completely. * Volume overload-will try gentle diuresis * Drug eruption secondary to nafcillin * Severe brittle insulin-dependent diabetes-blood sugars currently okay * PT/OT * Out of to chair * Disposition-still for transfer to floor. Will consult hospitalist group Subjective: Resting comfortably. Pain tolerable. Breathless only with exertion. Objective: Vital Signs Temp Pulse Resp BP Pulse Ox 36.8 C 105 H 14 99/63 L 92 11/11/17 06:41 11/11/17 08:00 11/11/17 08:00 11/11/17 08:00 11/11/17 08:00 Microbiology 11/10/17 08:30 - Final Unspecified Laboratory Results 11/11/17 05:20 11/11/17 05:20 11/10/17 11/11/17 11/12/17 05:59 05:59 05:59 Intake Total 545 2154 Output Total 1350 3775 250 Balance -805 -1621 -250 PT 14.2 SEC (12.0-15.0) 11/10/17 01:00 INR 1.08 (0.83-1.16) 11/10/17 01:00 Chest [id number] by myself. Very dense consolidation of the entire left lung. Air bronchograms are present. - Time Spent With Patient Time Spent With Patient: 35 min of time spent with patient, over half spent in the coordination of care or counseling. Physical Exam - Physical Exam General Appearance: alert, no apparent distress EENT: PERRL/EOMI, normal ENT inspection Neck: non-tender, full range of motion, supple, normal inspection Respiratory: lungs clear (Right lung), decreased breath sounds (Left), rhonchi ( Left), No wheezing Cardiac/Chest: normal peripheral pulses, regular rate, rhythm Peripheral Pulses: 2+: carotid (R), carotid (L), femoral (R), femoral (L), dorsalis-pedis (R), dorsalis-pedis (L) Abdomen: normal bowel sounds, non-tender, soft Male Genitalia: deferred Rectal: deferred Skin: normal color, warm/dry Extremities: normal range of motion, non-tender, normal inspection, normal capillary refill Neuro/Psych: no motor/sensory deficits, alert, normal mood/affect, oriented x 3 ICD10 Worksheet Patient Problems: Problems Problem Status Onset Anemia Acute Hypoxia Acute Multifocal pneumonia Acute Pleural effusion Acute Pneumonia Acute Volume overload Acute
--- NOTE | 2017-11-11 10:57 | PCMIDPN ---
Assessment/Plan: Assessment: Drug rash secondary to nafcillin. Patient now on vancomycin 1 g IV q.8 hours. The hope is to switch him back to cefazolin once the rash clears. Patient is currently asleep. Did not awaken. Plan: 1. Continue IV vancomycin. Monitor trough levels. Subjective: Patient resting comfortably in his hospital room. Did not awaken her disturbed. Objective: Vancomycin # 2 Vital Signs Temp Pulse Resp BP Pulse Ox 36.8 C 104 H 12 99/68 L 90 L 11/11/17 06:41 11/11/17 10:00 11/11/17 10:00 11/11/17 10:00 11/11/17 10:00 Microbiology 11/10/17 08:30 - Final Unspecified Laboratory Results 11/11/17 05:20 11/11/17 05:20 11/10/17 11/11/17 11/12/17 05:59 05:59 05:59 Intake Total 545 2154 Output Total 1350 9744 250 Balance -805 -1621 -250 - Physical Exam General Appearance: no apparent distress, No alert ICD10 Worksheet Patient Problems: Problems Problem Status Onset Anemia Acute Hypoxia Acute Multifocal pneumonia Acute Pleural effusion Acute Pneumonia Acute Volume overload Acute
[2017-11-11] MEDS: HYDROCODONE/APAP 5/325 TAB PO PRN ×2 (14:18→23:12)
--- NOTE | 2017-11-11 19:29 | HOSPPROG ---
Hospitalist Progress Note Assessment/Plan: Assessment: 36-year-old male presents with acute hypoxic respiratory failure in the setting of MSSA pneumonia as well as acute diastolic congestive heart failure exacerbation Plan: #MSSA bacteremia/multifocal PNA: CXR w/ ongoing, dense consolidation on L, air space disease on right (personally interpreted) - per ID, cont Vanco given allergy to Nafcillin #Acute diastolic CHF exacerbation: hypervolemic on exam, fluid on CXR, s/p IVF at OSH - Echo with PASP 57mmHg, normal LVEF, likely right side component - cont lasix 40mg IV bid - monitor I/O/weights #Acute hypoxic resp failure: Evidenced by SpO2 82% on room air, requiring up to 5LPM for objective tachypnea and shortness of breath, due to PNA, CHF. Negative resp PCR. CT with dense opacities. - ongoing Lasix - cont wean O2 #Drug-reaction: due to nafcillin, which was added to allergy list. Changed to Vancomycin. PRN Benadryl -no oral involvement or signs of Marlo's Hugh's #Uncontrolled Type 1 DM: hyperglycemic here. Lantus 20 units here (Levimer at home), SSI. #Hyperkalemia: no peaked T-waves #Hyponatremia: Acute, likely 2/2 poor renal perfusion in setting of CHF, improving w/ diuresis and increased CO #Severe protein caloric malnutrition: pre-alb 8.5. Nutrition consult #Diet: DM #DVT ppx: Lovenox #Code: Full #Disp: warrants inpatient admission for IV abx, monitored diuresis High-level medical complexity, high risk of worsening morbidity and/or mortality secondary to the issues outlined above. Discussed with Dr. Eddie Cleveland and rest of team on ICU rounds, the patient's chest x-ray continues to be significantly abnormal, but his clinical status is stabilizing, safe for transfer to the [facility] floor. Subjective: feels edematous Objective: Vital Signs Temp Pulse Resp BP Pulse Ox 37.0 C 105 H 20 108/89 H 94 11/11/17 14:20 11/11/17 16:35 11/11/17 16:35 11/11/17 14:20 11/11/17 16:35 Microbiology 11/10/17 08:30 - Final Unspecified Laboratory Results 11/11/17 05:20 11/11/17 18:45 11/10/17 11/11/17 11/12/17 05:59 05:59 05:59 Intake Total 545 2154 Output Total 1350 7915 1650 Balance -805 -1621 -1650 PT 14.2 SEC (12.0-15.0) 11/10/17 01:00 INR 1.08 (0.83-1.16) 11/10/17 01:00 - Physical Exam Constitutional: no apparent distress, appears nourished, not in pain, uncomfortable Cardiovascular: systolic murmur (I/ at sternum and apex), tachycardia, edema ( 1+ diffuse throughout), No irregularly irregular Respiratory: rhonchi ( and poor air movement on left), No expiratory wheeze, No bronchial breath sounds, No respiratory distress Gastrointestinal: normoactive bowel sounds, soft, non-tender abdomen, no palpable masses Neurologic: AAOx3, sensation intact bilaterally, No weakness Psychiatric: interacting appropriately, not anxious, not encephalopathic, thought process linear ICD10 Worksheet Patient Problems: Problems Problem Status Onset Anemia Acute Hypoxia Acute Multifocal pneumonia Acute Pleural effusion Acute Pneumonia Acute Volume overload Acute
[2017-11-11] MEDS: traZODone 50 MG TAB PO SCH (23:13)
[2017-11-11] MEDS: DIPHENHYDRAMINE CREAM TP PRN (23:13)
[2017-11-12] MEDS: VANCOMYCIN 1 GM in NS 250 ML IV SCH ×3 (01:17→17:42)
[2017-11-12 03:40] LABS: PLATELET COUNT 386 10^3/uL (150-400)
[2017-11-12] MEDS: ALBUTEROL 3 ML DEYVIAL IH SCH ×4 (06:30→21:31)
[2017-11-12] MEDS: FAMOTIDINE 20 MG TAB PO SCH (09:01)
[2017-11-12] MEDS: FUROSEMIDE 40 MG/4 ML VIAL IVP SCH ×2 (09:02→16:23)
[2017-11-12] MEDS: ENOXAPARIN 40 MG/0.4 ML SYR SC SCH (09:02)
[2017-11-12] MEDS: INSULIN LISPRO 100 UNIT/ML SC SCH ×3 (09:02→18:07)
[2017-11-12] MEDS: NYSTATIN POWDER 15 GM BTL TP SCH ×2 (09:03→22:52)
[2017-11-12] MEDS: DIPHENHYDRAMINE CREAM TP PRN ×2 (09:03→22:53)
[2017-11-12] MEDS: HYDROCODONE/APAP 5/325 TAB PO PRN ×3 (09:23→22:52)
[2017-11-12] MEDS ORDERED: FUROSEMIDE 20 MG/2 ML VIAL IVP ONE (09:38)
[2017-11-12] MEDS: INSULIN GLARGINE 100 UNITS/ML UNIT SC SCH (09:38)
--- NOTE | 2017-11-12 15:26 | HOSPPROG ---
Hospitalist Progress Note Assessment/Plan: Assessment: 36-year-old male presents with acute hypoxic respiratory failure in the setting of MSSA pneumonia as well as acute diastolic congestive heart failure exacerbation Plan: #MSSA bacteremia/multifocal PNA: CXR w/ ongoing, dense consolidation on L, air space disease on right - d/w Dr. Marcelino, consultation appreciated, discussed pt presentation, cont Vanco given allergy to Nafcillin #Acute diastolic CHF exacerbation: Symptomatically acutely worsening today, further w/u indicated. Hypervolemic on exam, suspect 2/2 IVF at OSH - Echo with PASP 57mmHg, normal LVEF, likely right side component - net neg 1.4L o/n - increase lasix to 40mg IV this AM, gauge response, cont 20mg IV PM - monitor I/O/weights - get chest CT to eval for pleural effusions which could be therapeutically tapped (transudative at OSH), personal interpretation is that there may be opportunity to tap base of L, but will await official read #Acute hypoxic resp failure: Evidenced by SpO2 82% on room air, requiring up to 5LPM for objective tachypnea and shortness of breath, due to PNA, CHF. Negative resp PCR. CT with dense opacities. - ongoing Lasix - cont wean O2 #Drug-reaction: due to nafcillin, which was added to allergy list. Changed to Vancomycin. PRN Benadryl -no oral involvement or signs of Marlo's Hugh's #Uncontrolled Type 1 DM: hyperglycemic here. Lantus 20 units here (Levimer at home), SSI. #Hyperkalemia: no peaked T-waves #Hyponatremia: Acute, likely 2/2 poor renal perfusion in setting of CHF, improving w/ diuresis and increased CO #Severe protein caloric malnutrition: pre-alb 8.5. Nutrition consult #Diet: DM #DVT ppx: Lovenox #Code: Full #Disp: warrants inpatient admission for IV abx, monitored diuresis Subjective: patient reports breathing more labored today, lying on left side Objective: Vital Signs Temp Pulse Resp BP Pulse Ox 36.3 C 106 H 18 116/75 94 11/12/17 15:02 11/12/17 15:02 11/12/17 15:02 11/12/17 15:02 11/12/17 15:02 Microbiology 11/10/17 08:30 - Final Unspecified Sputum Culture - Final Bridgett Albicans Laboratory Results 11/12/17 03:20 11/12/17 03:20 11/11/17 11/12/17 11/13/17 05:59 05:59 05:59 Intake Total 2154 260 Output Total 3775 1650 1000 Balance -1621 -1390 -1000 PT 14.2 SEC (12.0-15.0) 11/10/17 01:00 INR 1.08 (0.83-1.16) 11/10/17 01:00 - Physical Exam Constitutional: not in pain, uncomfortable, unkempt, No no apparent distress ( mild resp distress) Eyes: PERRL, anicteric sclera, EOMI Cardiovascular: tachycardia, edema (diffuse UE/LE edema), No systolic murmur, No irregularly irregular Respiratory: reduced air movement (left w/ some insp rhonchi), respiratory distress (mild tachypnea), rhonchi (on insp R lateral seg), No expiratory wheeze , No bronchial breath sounds Gastrointestinal: normoactive bowel sounds, soft, non-tender abdomen, no palpable masses, distension (mild) Genitourinary: other (scrotal edema) Neurologic: AAOx3, sensation intact bilaterally, No weakness Psychiatric: not encephalopathic, thought process linear, anxious, No agitated ICD10 Worksheet Patient Problems: Problems Problem Status Onset Hypoxia Acute Pneumonia Acute Anemia Acute Volume overload Acute Multifocal pneumonia Acute Pleural effusion Acute
--- NOTE | 2017-11-12 15:43 | PCMIDPN ---
Assessment/Plan: Assessment/Plan: 1. RAsh to nafcillin: - improving off nafcillin. - Currently on vanco for #2 2. MSSA bacteremia/necrotizing pna: -positive blood cx from 10/24 and 10/25. 10/28/17 with ngtd -Currenlt on Vanco therapy. - Per Dr. Aldana's note- discharged on 11/09 to [facility] with three more weeks left of therapy meds vanco 1g q8- 11/10/17 Subjective: afebrile. feels better overall. still with itching. covers over his head when i came into room. but he did remove it so we could chat. denies sob, abd pain or diardrhea. He states that the rash is getting better overall. Objective: Vital Signs Temp Pulse Resp BP Pulse Ox 36.3 C 106 H 18 116/75 94 11/12/17 15:02 11/12/17 15:02 11/12/17 15:02 11/12/17 15:02 11/12/17 15:02 Microbiology 11/10/17 08:30 - Final Unspecified Sputum Culture - Final Bridgett Albicans Laboratory Results 11/12/17 03:20 11/12/17 03:20 11/11/17 11/12/17 11/13/17 05:59 05:59 05:59 Intake Total 2154 260 Output Total 3775 1650 1000 Balance -1621 -1390 -1000 - Physical Exam General Appearance: alert, no apparent distress Respiratory: lungs clear Cardiac/Chest: regular rate, rhythm Extremities: No swelling Abdomen: normal bowel sounds, non-tender, soft, No distended Skin: erythema (mild erytehma over abdomen, arms, legs, back. no bullae, blisters, vesicles, pustules, or desquamtion. ) ICD10 Worksheet Patient Problems: Problems Problem Status Onset Anemia Acute Hypoxia Acute Multifocal pneumonia Acute Pleural effusion Acute Pneumonia Acute Volume overload Acute
--- NOTE | 2017-11-12 17:19 | ASMTCMCOM ---
CM Note CM Note Notes: Chart reviewed. 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 I will ask the CM tomorrow to provide some direction for him. He is planning to dc sto [facility] upon discharge unless he's had significant improvment of his condition, CM to follow. Date Signed: 11/12/2017 05:19 PM Electronically Signed By:Rika Tobin RN
[2017-11-12] MEDS: traZODone 50 MG TAB PO SCH (22:52)
[2017-11-13] MEDS: VANCOMYCIN 1 GM in NS 250 ML IV SCH ×2 (01:19→09:57)
[2017-11-13 03:52] LABS: PLATELET COUNT 376 10^3/uL (150-400)
[2017-11-13] MEDS: ALBUTEROL 3 ML DEYVIAL IH SCH ×4 (05:49→22:15)
[2017-11-13] MEDS: FAMOTIDINE 20 MG TAB PO SCH (08:20)
[2017-11-13] MEDS: HYDROCODONE/APAP 5/325 TAB PO PRN ×3 (08:20→20:59)
[2017-11-13] MEDS: FUROSEMIDE 40 MG/4 ML VIAL IVP SCH ×2 (08:20→15:45)
[2017-11-13] MEDS: NYSTATIN POWDER 15 GM BTL TP SCH ×2 (08:23→21:07)
[2017-11-13] MEDS: ENOXAPARIN 40 MG/0.4 ML SYR SC SCH (08:23)
[2017-11-13] MEDS: INSULIN GLARGINE 100 UNITS/ML UNIT SC SCH (08:23)
[2017-11-13] MEDS: INSULIN LISPRO 100 UNIT/ML SC SCH ×3 (08:23→19:12)
[2017-11-13] MEDS: DIPHENHYDRAMINE CREAM TP PRN (08:23)
--- NOTE | 2017-11-13 09:19 | PCMIDPN ---
Assessment/Plan: # MSSA bacteremia and necrotizing left-sided PNA. CT yesterday shows evolving lung abscess. Repeat blood cultures on admission do not show recurrence of bacteremia. Will try initiating cephalosporin in due to favorable pharmacologic properties of improved lung penetration as compared to vancomycin. --try cefazolin, discussed risks with patient at bedside. Reaction to nafcillin isolated to rash, no mucosal involvement - not DRESS or Marlo- Hugh --dc vancomycin for now. --monitor for recurrence of rash, discussed with nursing # Rash to nafcillin: Still some petechial changes on extremities otherwise resolved # poorly-controlled diabetes # Bridgett in sputum consistent with colonization Microbiology HIV testing and QuantiFERON negative at outside hospital 11/10 blood cultures (2) no growth today 11/10 sputum culture: Bridgett medication Vancomycin IV 11/10/17, #2 Subjective: Patient describing left upper chest pain that is not pleuritic. Persistent productive cough for purulent pink tinged sputum. No diarrhea, no new rash Objective: Vital Signs Temp Pulse Resp BP Pulse Ox 36.5 C 101 H 20 114/73 92 11/13/17 07:50 11/13/17 07:50 11/13/17 07:50 11/13/17 07:50 11/13/17 07:50 Microbiology 11/10/17 08:30 - Final Unspecified Sputum Culture - Final Bridgett Albicans Laboratory Results 11/13/17 03:40 11/13/17 03:40 11/12/17 11/13/17 11/14/17 05:59 05:59 05:59 Intake Total 260 Output Total 1650 2700 Balance -1390 -2700 - Physical Exam General Appearance: alert, no apparent distress, obese EENT: pale conjunctiva, poor dentition, No thrush Respiratory: crackles (Left midlung field), other (Very poor air movement left base), No wheezing Neck: supple Cardiac/Chest: regular rate, rhythm Extremities: No pedal edema Abdomen: non-tender, soft Male Genitalia: No dunn Skin: pallor, rash (Scattered petechiae distal lower extremities and forearms bilaterally) Neuro/Psych: alert, normal mood/affect, oriented x 3 - Time Spent With Patient Time Spent with Patient: greater than 35 minutes (Care coordinated with Dr Aleman) Time Spent with Patient: Greater than 35 minutes spent on this patients care, greater than 50% of time spent counseling, educating, and coordinating care regarding the above mentioned plan. ICD10 Worksheet Patient Problems: Problems Problem Status Onset Anemia Acute Hypoxia Acute Multifocal pneumonia Acute Pleural effusion Acute Pneumonia Acute Volume overload Acute
[2017-11-13] MEDS ORDERED: FUROSEMIDE 20 MG/2 ML VIAL IVP ONE (09:36)
[2017-11-13] MEDS ORDERED: ceFAZolin 2 GM/DEXTROSE 100 ML IV SCH (10:00)
[2017-11-13] MEDS: KETOROLAC 15 MG/1 ML SDV IVP PRN (10:38)
[2017-11-13] MEDS ORDERED: BENZONATATE 100 MG CAP PO PRN (13:10)
[2017-11-13] MEDS ORDERED: guaiFENesin/CODEINE PHOS 10 ML UDCUP PO PRN (13:10)
--- NOTE | 2017-11-13 13:15 | HOSPPROG ---
Hospitalist Progress Note Assessment/Plan: Assessment: 36-year-old male presents with acute hypoxic respiratory failure in the setting of MSSA pneumonia as well as acute diastolic congestive heart failure exacerbation, c/b likely pulmonary abscess Plan: #MSSA bacteremia/multifocal PNA and likely pulmonary abscess: chest CT w/ cystic /abscess appearance AILEEN (personally interpreted) - d/w Dr. Mccord, she recommends adjusting to Ancef and attempting Abx mgmt as opposed to surgical at this time #Acute diastolic CHF exacerbation: Symptomatic, hypervolemic on exam, suspect 2/ 2 IVF at OSH - Echo with PASP 57mmHg, normal LVEF, likely right side component - net neg 1.4L o/n - increase lasix to 40mg IV bid - monitor I/O/weights #Pleural effusion: Acute bilat, R>L, can consider therapeutic tap if symptomatically worsening #Acute hypoxic resp failure: Evidenced by SpO2 82% on room air, requiring up to 5LPM for objective tachypnea and shortness of breath, due to PNA, CHF, effusions. - ongoing Lasix - cont wean O2 #Chest pain: Acute, likely 2/2 muscular/intercostal strain w/ cough, reproducible on exam - rec PRN toradol/ibuprofen - rec use guaif/cod or tessalon PRN if cough exacerbating pain - no tele/Ekg indicated #Drug-reaction: due to nafcillin, which was added to allergy list. Changed to Vancomycin, adjust to Ancef now and monitor rash -no oral involvement or signs of Marlo's Hugh's #Uncontrolled Type 1 DM: hyperglycemic here. Lantus 20 units here (Levimer at home), SSI. #Hyperkalemia: no peaked T-waves #Hyponatremia: Acute, likely 2/2 poor renal perfusion in setting of CHF, improving w/ diuresis and increased CO #Severe protein caloric malnutrition: pre-alb 8.5. Nutrition consult #Diet: DM #DVT ppx: Lovenox #Code: Full #Disp: warrants inpatient admission for IV abx, monitored diuresis High level of medical complexity, high risk of worsening morbidity 2/2 issues outlined above. Subjective: patient w/ left chest pain this AM Objective: Vital Signs Temp Pulse Resp BP Pulse Ox 36.5 C 102 H 16 114/73 93 11/13/17 07:50 11/13/17 09:02 11/13/17 09:02 11/13/17 07:50 11/13/17 09:02 Microbiology 11/10/17 08:30 - Final Unspecified Sputum Culture - Final Bridgett Albicans Laboratory Results 11/13/17 03:40 11/13/17 03:40 11/12/17 11/13/17 11/14/17 05:59 05:59 05:59 Intake Total 260 Output Total 1650 2700 Balance -1390 -2700 PT 14.2 SEC (12.0-15.0) 11/10/17 01:00 INR 1.08 (0.83-1.16) 11/10/17 01:00 - Physical Exam Constitutional: no apparent distress, appears nourished, obese, uncomfortable Cardiovascular: edema (1+ bilat LE/UE ), No systolic murmur, No irregularly irregular, No tachycardia Respiratory: reduced air movement (left on insp), rhonchi (bilat), No expiratory wheeze, No bronchial breath sounds Gastrointestinal: normoactive bowel sounds, soft, non-tender abdomen, no palpable masses, No distension Skin: other (raised, non-erythematous papular rash bilat LE and abd w/ petechiae on LE) Neurologic: AAOx3, sensation intact bilaterally, No weakness (motor 5/5 bilat UE /LE) Psychiatric: interacting appropriately, not anxious, not encephalopathic, thought process linear ICD10 Worksheet Patient Problems: Problems Problem Status Onset Hypoxia Acute Pneumonia Acute Anemia Acute Volume overload Acute Multifocal pneumonia Acute Pleural effusion Acute
[2017-11-13] MEDS: ceFAZolin 2 GM/SWFI 2 GM/20 ML SYR IVP SCH ×2 (15:44→20:56)
[2017-11-13] MEDS: traZODone 50 MG TAB PO SCH (20:58)
[2017-11-14] MEDS: KETOROLAC 15 MG/1 ML SDV IVP PRN ×2 (03:02→21:53)
[2017-11-14] MEDS: ALBUTEROL 3 ML DEYVIAL IH SCH ×4 (05:18→21:52)
[2017-11-14] MEDS: ceFAZolin 2 GM/SWFI 2 GM/20 ML SYR IVP SCH ×3 (05:28→21:46)
[2017-11-14 06:05] LABS: PLATELET COUNT 411 10^3/uL (150-400)
[2017-11-14] MEDS: DIPHENHYDRAMINE CREAM TP PRN (06:16)
[2017-11-14] MEDS: FUROSEMIDE 40 MG/4 ML VIAL IVP SCH ×2 (08:05→16:24)
[2017-11-14] MEDS: FAMOTIDINE 20 MG TAB PO SCH (08:08)
[2017-11-14] MEDS: INSULIN LISPRO 100 UNIT/ML SC SCH ×3 (08:09→21:48)
[2017-11-14] MEDS: INSULIN GLARGINE 100 UNITS/ML UNIT SC SCH (08:10)
[2017-11-14] MEDS: ENOXAPARIN 40 MG/0.4 ML SYR SC SCH (08:12)
[2017-11-14] MEDS: HYDROCODONE/APAP 5/325 TAB PO PRN (08:16)
[2017-11-14] MEDS ORDERED: PNEUMOCOCCAL 0.5ML VACCINE VIAL IM ONE ×2 (08:43→12:00)
[2017-11-14] MEDS: NYSTATIN POWDER 15 GM BTL TP SCH ×2 (10:00→23:25)
--- NOTE | 2017-11-14 10:21 | HOSPPROG ---
Hospitalist Progress Note Assessment/Plan: Assessment: 36-year-old male presents with acute hypoxic respiratory failure in the setting of MSSA pneumonia as well as acute diastolic congestive heart failure exacerbation, c/b likely pulmonary abscess Plan: #MSSA bacteremia/multifocal PNA and likely pulmonary abscess: chest CT w/ cystic /abscess appearance AILEEN - d/w Dr. Rutledge, recs cont Ancef and attempting Abx mgmt as opposed to surgical at this time #Acute diastolic CHF exacerbation: Symptomatic, hypervolemic on exam, suspect 2/ 2 IVF at OSH - Echo with PASP 57mmHg, normal LVEF, likely right side component - net neg 2.2L o/n s/p increase in lasix to 40mg IV bid, continue - monitor I/O/weights - counseled the patient that his L sided edema is gravity dependent and caused by him favoring his right lung and lying on left side - he has not had LE US to r/o DVT, will get #Pleural effusion: Acute bilat, R>L, can consider therapeutic tap if symptomatically worsening #Acute hypoxic resp failure: Evidenced by SpO2 82% on room air, requiring up to 5LPM for objective tachypnea and shortness of breath, due to PNA, CHF, effusions. - ongoing Lasix - cont wean O2 #Chest pain: Acute, likely 2/2 muscular/intercostal strain w/ cough, reproducible on exam - responding to toradol PRN - rec use guaif/cod or tessalon PRN if cough exacerbating pain #Drug-reaction: due to nafcillin, which was added to allergy list. Changed to Vancomycin, adjusted to Ancef w/o recurrent rash #Uncontrolled Type 1 DM: hyperglycemic here. Lantus 20 units here (Levimer at home), SSI to regular #Hyperkalemia: no peaked T-waves #Hyponatremia: Acute, likely 2/2 poor renal perfusion in setting of CHF, improving w/ diuresis and increased CO #Severe protein caloric malnutrition: pre-alb 8.5. Nutrition consult #Hematuria: acute, new problem, further w/u indicated. unclear if 2/2 systemic drug rxn and resultant glomerularnephritis -get renal US #Diet: DM #DVT ppx: Lovenox #Code: Full #Disp: warrants inpatient admission for IV abx, monitored diuresis Subjective: left side edema, dark urine Objective: Vital Signs Temp Pulse Resp BP Pulse Ox 36.4 C 100 18 121/76 H 93 11/14/17 07:28 11/14/17 07:28 11/14/17 07:28 11/14/17 07:28 11/14/17 07:28 Microbiology 11/14/17 06:00 Gastrointestinal Tract Panel (PCR) - Final Stool No Organism Detected Laboratory Results 11/14/17 05:30 11/14/17 05:30 11/13/17 11/14/17 11/15/17 05:59 05:59 05:59 Intake Total 640 Output Total 2700 3098 Balance -2700 -2458 PT 14.2 SEC (12.0-15.0) 11/10/17 01:00 INR 1.08 (0.83-1.16) 11/10/17 01:00 - Physical Exam Constitutional: no apparent distress, not in pain, chronically ill appearing, uncomfortable, other (edmatous) Cardiovascular: regular rate and rhythym, no murmur, rub, or gallop, edema (1+ bilat UE/LE edema), other (scrotal edema), No irregularly irregular, No tachycardia Respiratory: reduced air movement (left), inspiratory crackles (bilat bases), rhonchi (on left), No respiratory distress Gastrointestinal: normoactive bowel sounds, soft, non-tender abdomen, no palpable masses Skin: other (soft tissue edema) Neurologic: AAOx3, sensation intact bilaterally Psychiatric: interacting appropriately, not anxious, not encephalopathic, thought process linear ICD10 Worksheet Patient Problems: Problems Problem Status Onset Hypoxia Acute Pneumonia Acute Anemia Acute Volume overload Acute Multifocal pneumonia Acute Pleural effusion Acute
--- NOTE | 2017-11-14 13:16 | PCMIDPN ---
Assessment/Plan: # MSSA bacteremia and necrotizing left-sided PNA now with early lung abscess. Clinically doing well with stable O2 requirements @ 4L and normal WBC. Changed to cefazolin yesterday and is tolerating well. --stop date 2/3 for IV antibiotics, but may need longer # Rash to nafcillin: Still some petechial changes on extremities otherwise resolved # poorly-controlled diabetes # Bridgett in sputum consistent with colonization Microbiology HIV testing and QuantiFERON negative at outside hospital 11/10 blood cultures (2) no growth to date 11/10 sputum culture: Bridgett medication cefazolin 2gm IV q8h, #1 Subjective: feeling well, reports he is #100 up with fluid denies itching or rash since changed to cefazolin no diarrhea Objective: Vital Signs Temp Pulse Resp BP Pulse Ox 36.4 C 99 18 121/76 H 94 11/14/17 07:28 11/14/17 11:32 11/14/17 11:32 11/14/17 07:28 11/14/17 11:32 Microbiology 11/14/17 06:00 Gastrointestinal Tract Panel (PCR) - Final Stool No Organism Detected Laboratory Results 11/14/17 05:30 11/14/17 05:30 11/13/17 11/14/17 11/15/17 05:59 05:59 05:59 Intake Total 640 Output Total 2700 3098 200 Balance -2700 -2458 -200 General Appearance: alert, no apparent distress, obese EENT: pale conjunctiva, poor dentition, No thrush Respiratory: crackles LLL and LML, breathing easy Neck: supple Cardiac/Chest: regular rate, rhythm Extremities: mild VÍCTOR Abdomen: non-tender, soft Male Genitalia: No dunn Skin: pallor,Scattered petechiae distal lower extremities and forearms bilaterally Neuro/Psych: alert, normal mood/affect, oriented x 3 - Line/s RUE PICC Lines: No drainage, No erythema - Time Spent With Patient Time Spent with Patient: greater than 25 minutes (care coordinated with Dr. Luque) Time Spent with Patient: Greater than 25 minutes spent on this patients care, greater than 50% of time spent counseling, educating, and coordinating care regarding the above mentioned plan. ICD10 Worksheet Patient Problems: Problems Problem Status Onset Anemia Acute Hypoxia Acute Multifocal pneumonia Acute Pleural effusion Acute Pneumonia Acute Volume overload Acute
--- NOTE | 2017-11-14 15:01 | ASMTCMCOM ---
CM Note CM Note Notes: Today Emily met w/ Pt. regarding his need to resolve an issue with a laptop. Pt. states that he plans to start [facility] soon and needs to order a laptop and then have it picked up for him. In the end, Pt. was able to resolve the issue on his own. Called his mother in [place]. She was able to have her [place]-based friend orange picker machine operator the laptop for Pt. tomorrow at the [facility]. Pt. pleased. States no further needs and he is good with going back to [facility] at d/c. Updated Ame from on Pt.'s medical issues. Plan: [facility] when ready. Date Signed: 11/14/2017 03:00 PM Electronically Signed By:Nadine Jackson LCSW
[2017-11-14] MEDS: traZODone 50 MG TAB PO SCH (21:47)
[2017-11-15] MEDS: HYDROCODONE/APAP 5/325 TAB PO PRN ×4 (02:26→23:26)
[2017-11-15] MEDS: ceFAZolin 2 GM/SWFI 2 GM/20 ML SYR IVP SCH ×3 (05:03→23:22)
[2017-11-15] MEDS: ALBUTEROL 3 ML DEYVIAL IH SCH ×4 (05:11→21:10)
[2017-11-15 05:19] LABS: PLATELET COUNT 382 10^3/uL (150-400)
[2017-11-15] MEDS: INSULIN GLARGINE 100 UNITS/ML UNIT SC SCH (08:30)
[2017-11-15] MEDS: INSULIN LISPRO 100 UNIT/ML SC SCH ×3 (08:31→18:11)
[2017-11-15] MEDS: FAMOTIDINE 20 MG TAB PO SCH (08:34)
[2017-11-15] MEDS: FUROSEMIDE 40 MG/4 ML VIAL IVP SCH ×3 (08:35→16:33)
[2017-11-15] MEDS: ENOXAPARIN 40 MG/0.4 ML SYR SC SCH (08:36)
--- NOTE | 2017-11-15 09:10 | PCMIDPN ---
Assessment/Plan: 1. History of MSSA bacteremia with multilobar necrotizing pneumonia: Stable on cefazolin. No new recommendations. 2. History of drug eruption from nafcillin: Resolved. 3. Gross hematuria: Consider urologic evaluation. Renal ultrasound unrevealing. Coags fine. ? from trauma associated with attemped Huber catheter insertion x2 in the ICU. Subjective: In good spirits, but still having gross hematuria. No dysuria. No flank pain. Sitting up eating his breakfast. Not really coughing, no shortness of breath no diarrhea. Objective: Ancef 2 g IV q.8 hours day 1. (Antibiotics day 18 after 1st negative blood culture, which was October 28) Afebrile 92% on 4 L Temp Pulse Resp BP Pulse Ox 36.6 C 93 18 122/82 H 92 11/15/17 07:46 11/15/17 07:46 11/15/17 07:46 11/15/17 07:46 11/15/17 07:46 Microbiology 11/14/17 06:00 Gastrointestinal Tract Panel (PCR) - Final Stool No Organism Detected Laboratory Results 11/15/17 05:05 11/15/17 05:05 11/14/17 11/15/17 11/16/17 05:59 05:59 05:59 Intake Total 640 120 Output Total 3098 1930 Balance -4215 -2234 - Physical Exam General Appearance: no apparent distress, obese EENT: pharynx normal, No thrush Respiratory: other (Decreased breath sounds/few crackles left base, right lung sounds fairly clear, no wheeze.) Cardiac/Chest: regular rate, rhythm Abdomen: non-tender, soft Skin: No rash ICD10 Worksheet Patient Problems: Problems Problem Status Onset Anemia Acute Hypoxia Acute Multifocal pneumonia Acute Pleural effusion Acute Pneumonia Acute Volume overload Acute
[2017-11-15] MEDS: NYSTATIN POWDER 15 GM BTL TP SCH ×2 (12:34→23:24)
--- NOTE | 2017-11-15 18:30 | HOSPPROG ---
Hospitalist Progress Note Assessment/Plan: Assessment: 36-year-old male presents with acute hypoxic respiratory failure in the setting of MSSA pneumonia as well as acute diastolic congestive heart failure exacerbation, c/b likely pulmonary abscess Plan: #MSSA bacteremia/multifocal PNA and likely pulmonary abscess: chest CT w/ cystic /abscess appearance AILEEN - cont Ancef and attempting Abx mgmt as opposed to surgical at this time - duration under guidance from ID #Acute diastolic CHF exacerbation: Symptomatic, hypervolemic on exam, suspect 2/ 2 IVF at OSH + Nafcillin fluid load - net neg 2.2L o/n s/p increase in lasix to 40mg IV bid - patient discouraged by his progress, requesting uptitration of lasix, start 80mg IV bid and monitor lytes closely - monitor I/O/weights - counseled the patient that his L sided edema is gravity dependent and caused by him favoring his right lung and lying on left side #Hematuria: acute, likely 2/2 dunn trauma while in ICU, but perhaps potentiated by toradol over past 48hrs -renal US unremarkable -hold toradol today -counseled patient to just monitor over the next week or two, and get outpt urology appointment if does not thaddeus (referral included in DC recs) #Pleural effusion: Acute bilat, R>L, can consider therapeutic tap if symptomatically worsening #Acute hypoxic resp failure: Evidenced by SpO2 82% on room air, requiring up to 5LPM for objective tachypnea and shortness of breath, due to PNA, CHF, effusions. - ongoing Lasix - cont wean O2 #Chest pain: Acute, likely 2/2 muscular/intercostal strain w/ cough, reproducible on exam - responding to toradol PRN, encouraged temporary cessation given hematuria - rec use guaif/cod or tessalon PRN if cough exacerbating pain #Drug-reaction: due to nafcillin, changed to Vancomycin, then adjusted to Ancef w/o recurrent rash #Uncontrolled Type 1 DM: hyperglycemic here. Lantus 20 units here (Levimer at home), SSI to regular #Hyperkalemia: no peaked T-waves #Hyponatremia: Acute, likely 2/2 poor renal perfusion in setting of CHF, improving w/ diuresis and increased CO #Severe protein caloric malnutrition: pre-alb 8.5. Nutrition consult #Diet: DM #DVT ppx: Lovenox 40 #Code: Full #Disp: warrants inpatient admission for IV abx, monitored diuresis Subjective: patient concerned about progress w/ diuresis and hematuria, counseled extensively regarding both Objective: Vital Signs Temp Pulse Resp BP Pulse Ox 36.7 C 92 18 120/84 H 95 11/15/17 15:15 11/15/17 15:15 11/15/17 15:15 11/15/17 15:15 11/15/17 15:15 Laboratory Results 11/15/17 05:05 11/15/17 05:05 11/14/17 11/15/17 11/16/17 05:59 05:59 05:59 Intake Total 640 120 730 Output Total 3098 2350 2400 Balance -2458 -2230 -1670 PT 14.2 SEC (12.0-15.0) 11/10/17 01:00 INR 1.08 (0.83-1.16) 11/10/17 01:00 - Time Spent With Patient Time Spent with Patient: greater than 35 minutes Time Spent with Patient: Greater than 35 minutes spent on this patients care, greater than 50% of time spent counseling, educating, and coordinating care regarding the above mentioned plan. - Physical Exam Constitutional: uncomfortable, other (hypervolemic appearing) Cardiovascular: regular rate and rhythym, no murmur, rub, or gallop, edema (2+ bilat LE, 1+ bilat UE, facial) Respiratory: reduced air movement (in left base), inspiratory crackles (right base), rhonchi (mid anterior left chest on inspiration), No respiratory distress Gastrointestinal: distension (mildly), No tenderness Skin: other (soft tissue edema throughout) Neurologic: AAOx3 Psychiatric: not encephalopathic, anxious, No agitated ICD10 Worksheet Patient Problems: Problems Problem Status Onset Hypoxia Acute Pneumonia Acute Anemia Acute Volume overload Acute Multifocal pneumonia Acute Pleural effusion Acute
[2017-11-15] MEDS: traZODone 50 MG TAB PO SCH (23:25)
[2017-11-16] MEDS: ALBUTEROL 3 ML DEYVIAL IH SCH ×2 (05:27→11:07)
[2017-11-16] MEDS: HYDROCODONE/APAP 5/325 TAB PO PRN (05:29)
[2017-11-16] MEDS: ceFAZolin 2 GM/SWFI 2 GM/20 ML SYR IVP SCH ×3 (05:30→21:57)
[2017-11-16 06:03] LABS: PLATELET COUNT 292 10^3/uL (150-400)
[2017-11-16] MEDS: INSULIN GLARGINE 100 UNITS/ML UNIT SC SCH (09:23)
[2017-11-16] MEDS: INSULIN LISPRO 100 UNIT/ML SC SCH ×3 (09:23→18:38)
[2017-11-16] MEDS: ENOXAPARIN 40 MG/0.4 ML SYR SC SCH (09:23)
[2017-11-16] MEDS: FAMOTIDINE 20 MG TAB PO SCH (09:23)
[2017-11-16] MEDS: FUROSEMIDE 40 MG/4 ML VIAL IVP SCH ×2 (09:23→15:03)
[2017-11-16] MEDS: NYSTATIN POWDER 15 GM BTL TP SCH ×2 (09:24→21:57)
[2017-11-16] MEDS ORDERED: IOPAMIDOL (ISOVUE-300) 100 ML BTL ONE (13:42)
--- NOTE | 2017-11-16 15:29 | PCMIDPN ---
Assessment/Plan: Assessment/Plan: 1. RAsh to nafcillin: - resolved. 2. MSSA bacteremia with necrotizing pneumonia: -positive blood cx from 10/24 and 10/25. 10/28/17 with ngtd per outside records. -Currently on cefazolin. - RECnet ct chest reviewed. early abscess. -Will need several more weeks of atbx. meds ancef 2g q8- 11/13/17 s/p vanco 1g q8- 11/10/17 Subjective: afebrile. feels well. denies more sob, than previously. has cough but mostly dry now. no new rashes. denies abd pain or diarrhea. Objective: Vital Signs Temp Pulse Resp BP Pulse Ox 36.8 C 102 H 18 108/65 91 L 11/16/17 08:00 11/16/17 08:00 11/16/17 08:00 11/16/17 08:00 11/16/17 08:00 Laboratory Results 11/16/17 05:30 11/16/17 05:30 11/15/17 11/16/17 11/17/17 05:59 05:59 05:59 Intake Total 120 1230 Output Total 2350 4025 Balance -3794 -5091 - Physical Exam General Appearance: alert, no apparent distress Respiratory: coarse breath sounds Cardiac/Chest: regular rate, rhythm Extremities: No swelling Abdomen: normal bowel sounds, non-tender, soft, No distended Skin: No erythema ICD10 Worksheet Patient Problems: Problems Problem Status Onset Anemia Acute Hypoxia Acute Multifocal pneumonia Acute Pleural effusion Acute Pneumonia Acute Volume overload Acute
[2017-11-16] MEDS ORDERED: BISACODYL 10 MG SUPP PR PRN (17:39)
[2017-11-16] MEDS ORDERED: MAGNESIUM HYDROXIDE 30 ML UDCUP PO PRN (17:39)
--- NOTE | 2017-11-16 17:45 | HOSPPROG ---
Hospitalist Progress Note Assessment/Plan: * MSSA pneumonia with early cavitation, MSSA bacteremia -IV ancef * Massive volume overload - right heart failure (CTA negative for PE) -IV lasix * Large left pleural effusion - consider thoracentesis * DM 1 - uncontrolled -Lantus * Hematuria - mild, due to dunn trauma * Acute respiratory failure Subjective: Very volume overloaded, including scrotal edema Objective: Vital Signs Temp Pulse Resp BP Pulse Ox 36.6 C 98 18 124/87 H 91 L 11/16/17 16:00 11/16/17 16:00 11/16/17 16:00 11/16/17 16:00 11/16/17 16:00 Laboratory Results 11/16/17 05:30 11/16/17 05:30 11/15/17 11/16/17 11/17/17 05:59 05:59 05:59 Intake Total 120 1230 300 Output Total 2350 4025 800 Balance -2230 -2795 -500 PT 14.2 SEC (12.0-15.0) 11/10/17 01:00 INR 1.08 (0.83-1.16) 11/10/17 01:00 CT abd/pelvis - no mass, no obstruction CXR viewed, my personal interpretation is - severe left infiltrate, ? effusion - Physical Exam Constitutional: no apparent distress, appears nourished, not in pain Cardiovascular: regular rate and rhythym, no murmur, rub, or gallop, edema (4+ with scrotal edema), No tachycardia Respiratory: no respiratory distress, no rales or rhonchi, clear to auscultation Gastrointestinal: normoactive bowel sounds, soft, non-tender abdomen, no palpable masses Skin: no rashes or abrasions, no fluctuance, no induration Neurologic: AAOx3, sensation intact bilaterally Psychiatric: interacting appropriately, not anxious, not encephalopathic, thought process linear ICD10 Worksheet Patient Problems: Problems Problem Status Onset Anemia Acute Hypoxia Acute Multifocal pneumonia Acute Pleural effusion Acute Pneumonia Acute Volume overload Acute
[2017-11-16] MEDS ORDERED: SENNOSIDES/DOCUSATE SODIUM TAB PO SCH (21:00)
[2017-11-16] MEDS: SODIUM CL NASAL 45 ML BTL EACHNARE SCH (21:57)
[2017-11-16] MEDS: traZODone 50 MG TAB PO SCH (21:58)
[2017-11-17] MEDS: HYDROCODONE/APAP 5/325 TAB PO PRN ×3 (01:10→22:31)
[2017-11-17] MEDS: KETOROLAC 15 MG/1 ML SDV IVP PRN (01:11)
[2017-11-17] MEDS: ceFAZolin 2 GM/SWFI 2 GM/20 ML SYR IVP SCH ×3 (05:14→22:10)
[2017-11-17 05:43] LABS: PLATELET COUNT 383 10^3/uL (150-400)
[2017-11-17] MEDS ORDERED: oxyCODONE IR 5 MG TAB PO PRN (08:38)
[2017-11-17] MEDS ORDERED: traMADol 50 MG TAB PO PRN (08:39)
[2017-11-17] MEDS: FUROSEMIDE 40 MG/4 ML VIAL IVP SCH ×2 (09:45→14:55)
[2017-11-17] MEDS: FAMOTIDINE 20 MG TAB PO SCH (09:45)
[2017-11-17] MEDS: INSULIN LISPRO 100 UNIT/ML SC SCH ×3 (09:46→18:33)
[2017-11-17] MEDS: ALBUMIN 25% 100 ML IV SCH ×2 (09:47→14:50)
[2017-11-17] MEDS: ENOXAPARIN 40 MG/0.4 ML SYR SC SCH (09:48)
[2017-11-17] MEDS: SODIUM CL NASAL 45 ML BTL EACHNARE SCH ×2 (09:57→22:10)
[2017-11-17] MEDS: INSULIN GLARGINE 100 UNITS/ML UNIT SC SCH (10:16)
--- NOTE | 2017-11-17 12:08 | ASMTCMCOM ---
CM Note CM Note Notes: The hospitalist ordered inpatient rehab eval which has been done previously. He had been at prior to admission. Likely disposition with be to return to SNF when medically cleared for dc. CM to follow. Date Signed: 11/17/2017 12:07 PM Electronically Signed By:Rika Tobin RN
[2017-11-17] MEDS: NYSTATIN POWDER 15 GM BTL TP SCH ×2 (13:05→22:10)
[2017-11-17] MEDS ORDERED: IPRATROPIUM/ALBUTEROL 3 ML DEYVIAL IH PRN (14:27)
--- NOTE | 2017-11-17 17:01 | HOSPPROG ---
Hospitalist Progress Note Assessment/Plan: * MSSA pneumonia with early cavitation, MSSA bacteremia -IV ancef through 2/3 - maybe longer * Massive volume overload - right heart failure (CTA negative for PE) -IV lasix + albumin -scrotal edema - improving * Large left pleural effusion - US guided thoracentesis in am * DM 1 - uncontrolled -increase Lantus * Hematuria - mild, due to dunn trauma * Acute respiratory failure - stable * Rash due to nafcillin * Obesity BMI 32 Subjective: Still with massive volume overload, want thoracentesis - thinks it will make him feel better. Had thoracentesis on right at [facility], but never on left Objective: Vital Signs Temp Pulse Resp BP Pulse Ox 36.6 C 100 18 110/81 H 94 11/17/17 15:15 11/17/17 15:15 11/17/17 15:15 11/17/17 15:15 11/17/17 15:15 Laboratory Results 11/17/17 05:10 11/17/17 05:10 11/16/17 11/17/17 11/18/17 05:59 05:59 05:59 Intake Total 1230 1830 Output Total 4025 2800 Balance -2795 -970 PT 14.2 SEC (12.0-15.0) 11/10/17 01:00 INR 1.08 (0.83-1.16) 11/10/17 01:00 - Physical Exam Constitutional: no apparent distress, appears nourished, not in pain Cardiovascular: regular rate and rhythym, no murmur, rub, or gallop, edema (4+) Respiratory: no respiratory distress, no rales or rhonchi, clear to auscultation Gastrointestinal: normoactive bowel sounds, soft, non-tender abdomen, no palpable masses Skin: no rashes or abrasions, no fluctuance, no induration Neurologic: AAOx3, sensation intact bilaterally Psychiatric: interacting appropriately, not anxious, not encephalopathic, thought process linear ICD10 Worksheet Patient Problems: Problems Problem Status Onset Anemia Acute Hypoxia Acute Multifocal pneumonia Acute Pleural effusion Acute Pneumonia Acute Volume overload Acute
[2017-11-17] MEDS: traZODone 50 MG TAB PO SCH (22:10)
[2017-11-18] MEDS: HYDROCODONE/APAP 5/325 TAB PO PRN ×2 (04:57→21:08)
[2017-11-18] MEDS: ceFAZolin 2 GM/SWFI 2 GM/20 ML SYR IVP SCH ×3 (04:57→21:08)
[2017-11-18 05:26] LABS: PLATELET COUNT 358 10^3/uL (150-400)
[2017-11-18] MEDS ORDERED: LIDOCAINE 1% 300 MG/30 ML SDV ONE (10:12)
--- NOTE | 2017-11-18 10:27 | HOSPPROG ---
Hospitalist Progress Note Assessment/Plan: Patient new to my care today DIAGNOSES: * MSSA pneumonia with early cavitation, MSSA bacteremia (originally diagnosed and treated at [facility], still on antibiotics) -IV ancef through 2/ - maybe longer * Massive volume overload - right heart failure (CTA negative for PE)(NOT diastolic disease) -will need to markedly slow down diuresis now as he is having rapidly rising BUN and becoming alkalotic -cause for right-sided heart failure uncertain, suspect he likely has obesity hypoventilation syndrome, question sleep apnea as well -scrotal edema - improving * pre renal azotemia and contraction alkalosis, new onset at this time due to ongoing aggressive diuresis * Large left pleural effusion remains * DM 1 -remains not ideally controlled -increase Lantus * Hematuria - mild, due to dunn trauma * Acute hypoxemic respiratory failure - remains on 4 L oxygen but overall is stable at present * Rash due to nafcillin but tolerating Ancef well * Obesity BMI 32 PLANS: -continue current antibiotics -decrease Lasix and follow BUN and acid-base and electrolytes closely -he is to have left-sided thoracentesis today -confirm continue physical occupational therapy -will further increase his insulin doses for management of hyperglycemia SUBJECTIVE: He feels unchanged from yesterday, no pain, no change in his level of dyspnea Still quite weak and having difficulty with walking OBJECTIVE Vitals reviewed: Stable without fever Cartographic Technician, my review: Exam: alert oriented skin warm dry color ok resps not labored 1 4 L of oxygen lungs left-sided breath sounds significantly decreased with egophony, right side with a few rales heart regular abd soft nondistended nontender, bowel sounds present limbs warm, still with significant edema of the abdominal wall in legs the patient states less than previous iv site ok Lab data: Chemistry showing further significant increase in BUN as well as now an increase in CO2 though electrolytes are still good and creatinine remains normal Microbiology data: Cultures here remained negative so for Objective: Vital Signs Temp Pulse Resp BP Pulse Ox 36.3 C 90 16 130/91 H 95 11/18/17 08:00 11/18/17 08:00 11/18/17 08:00 11/18/17 08:00 11/18/17 08:00 Laboratory Results 11/18/17 05:10 11/18/17 05:00 11/17/17 11/18/17 11/19/17 06:59 06:59 06:59 Intake Total 1830 Output Total 2800 5850 Balance -970 -5850 PT 14.2 SEC (12.0-15.0) 11/10/17 01:00 INR 1.08 (0.83-1.16) 11/10/17 01:00 - Time Spent With Patient Time Spent with Patient: greater than 35 minutes Time Spent with Patient: Greater than 35 minutes spent on this patients care, greater than 50% of time spent counseling, educating, and coordinating care regarding the above mentioned plan. ICD10 Worksheet Patient Problems: Problems Problem Status Onset Anemia Acute Hypoxia Acute Multifocal pneumonia Acute Pleural effusion Acute Pneumonia Acute Volume overload Acute
[2017-11-18 10:35] LABS: INR 1.05 (0.83-1.16); PROTIME(PATIENT) 13.9 SEC (12.0-15.0)
[2017-11-18] MEDS: INSULIN LISPRO 100 UNIT/ML SC SCH ×5 (12:00→18:31)
[2017-11-18] MEDS: ALBUMIN 25% 100 ML IV SCH ×2 (12:01→18:27)
[2017-11-18] MEDS: SODIUM CL NASAL 45 ML BTL EACHNARE SCH ×2 (12:02→21:08)
[2017-11-18] MEDS: INSULIN GLARGINE 100 UNITS/ML UNIT SC SCH (12:02)
[2017-11-18] MEDS: NYSTATIN POWDER 15 GM BTL TP SCH ×2 (12:02→21:08)
[2017-11-18] MEDS: FAMOTIDINE 20 MG TAB PO SCH (12:09)
[2017-11-18] MEDS: FUROSEMIDE 40 MG/4 ML VIAL IVP SCH (12:09)
--- NOTE | 2017-11-18 20:31 | PCMIDPN ---
Assessment/Plan: Assessment/Plan: * MSSA bacteremia with necrotizing pneumonia: Status post thoracentesis today which does not suggest empyema. Continue cefazolin and suspect will need longer than initially plan 4 week course of therapy given necrotizing pneumonia with hepatization. Tolerating cefazolin well. * Rash: Consistent with allergic reaction to nafcillin which has been discontinued with resolution of rash. 11/18/17 20:28 Subjective: Patient status post thoracentesis earlier today with removal of 850 mL of yellow fluid. Pain postprocedure present. No skin rash. Otherwise feels improved. Objective: Vital Signs Temp Pulse Resp BP Pulse Ox 36.4 C 95 20 133/92 H 94 11/18/17 15:55 11/18/17 15:55 11/18/17 15:55 11/18/17 15:55 11/18/17 15:55 Microbiology 11/18/17 11:20 Gram Stain - Final Pleural Fluid - Aspirate 11/18/17 11:30 Gram Stain - Final Thoracic Fluid - Aspirate Body Fluid Culture - Final Laboratory Results 11/18/17 05:10 11/18/17 05:00 11/17/17 11/18/17 11/19/17 05:59 05:59 05:59 Intake Total 1830 1080 Output Total 2800 5850 1075 Balance -970 -5850 5 Cefazolin # 5 Pleural Gram stain negative Laboratory Tests 11/18/17 11:30 Pleural pH 7.5 Pleural WBC 433 Pleural RBC 40 Pleural Neutrophils 62 Pleural Lymphocytes % 7 Pleural LDH 205 Pleural Glucose 175 H - Physical Exam General Appearance: alert, no apparent distress EENT: No scleral icterus, No conjunctival petechiae Respiratory: crackles (Throughout left lung field), bronchial breath sounds ( Left base), No respiratory distress Cardiac/Chest: regular rate, rhythm, No systolic murmur Extremities: No inflammation Abdomen: non-tender, No distended Skin: No embolic lesions ICD10 Worksheet Patient Problems: Problems Problem Status Onset Anemia Acute Hypoxia Acute Multifocal pneumonia Acute Pleural effusion Acute Pneumonia Acute Volume overload Acute
[2017-11-18] MEDS: ACETAMINOPHEN 325 MG TAB PO PRN (21:07)
[2017-11-18] MEDS: traZODone 50 MG TAB PO SCH (21:09)
[2017-11-19] MEDS: HYDROCODONE/APAP 5/325 TAB PO PRN ×3 (01:44→20:59)
[2017-11-19] MEDS: IBUPROFEN 600 MG TAB PO PRN (01:46)
[2017-11-19] MEDS: ceFAZolin 2 GM/SWFI 2 GM/20 ML SYR IVP SCH ×3 (05:18→20:59)
[2017-11-19] MEDS: INSULIN LISPRO 100 UNIT/ML SC SCH ×6 (09:56→18:47)
[2017-11-19] MEDS: ALBUMIN 25% 100 ML IV SCH ×2 (10:15→15:36)
[2017-11-19] MEDS: FUROSEMIDE 40 MG/4 ML VIAL IVP SCH (11:05)
[2017-11-19] MEDS: NYSTATIN POWDER 15 GM BTL TP SCH ×2 (11:05→20:58)
[2017-11-19] MEDS: INSULIN GLARGINE 100 UNITS/ML UNIT SC SCH (11:05)
[2017-11-19] MEDS: SODIUM CL NASAL 45 ML BTL EACHNARE SCH ×2 (11:06→20:59)
--- NOTE | 2017-11-19 14:02 | PCMIDPN ---
Assessment/Plan: Assessment/Plan: 1. MSSA bacteremia/necrotizing pna: -positive blood cx from 10/24 and 10/25. 10/28/17 with ngtd -Currently on ancef therapy. tolerating. - Recent Ct chest reviewed. -s/p thoracentesis yesterday, fluid analysis reviewed. Cultures so far ngtd - Continue with current therapy. will likely need longer course of therapy. 2. Rash to nafcillin - resolved. meds ancef 2g q8- 11/13/17 s/p vanco 1g q8- 11/10/17-11/13/17 Subjective: afebrile. o2 at 5L. mostly dry cough. feels better after thoracentesis. denies diarrhea or abd pain. Objective: Vital Signs Temp Pulse Resp BP Pulse Ox 36.5 C 91 20 128/84 H 96 11/19/17 08:00 11/19/17 08:00 11/19/17 08:00 11/19/17 08:00 11/19/17 08:00 Microbiology 11/18/17 11:20 Gram Stain - Final Pleural Fluid - Aspirate 11/18/17 11:30 Gram Stain - Final Thoracic Fluid - Aspirate Body Fluid Culture - Final Laboratory Results 11/18/17 05:10 11/19/17 05:10 11/18/17 11/19/17 11/20/17 05:59 05:59 05:59 Intake Total 1430 Output Total 5850 1275 Balance -5850 155 - Physical Exam General Appearance: alert, no apparent distress Respiratory: coarse breath sounds Cardiac/Chest: regular rate, rhythm Extremities: swelling Abdomen: normal bowel sounds, non-tender, soft, No distended Skin: No rash ICD10 Worksheet Patient Problems: Problems Problem Status Onset Anemia Acute Hypoxia Acute Multifocal pneumonia Acute Pleural effusion Acute Pneumonia Acute Volume overload Acute
--- NOTE | 2017-11-19 14:08 | ASMTCMCOM ---
CM Note CM Note Notes: CM spoke w/ Dr. Morales regarding d/c POC. Dr. Morales is recommending LTAC for pt. CM met w/ pt for dispo planning. Pt is agreeable to going to LTAC. Referrals made to [facility] and [facility]. Pt reports that his mother is planning to moving to [place] from [place] 01/26/18. Pt plans on living with his mom once she is back in [place]. [facility] is denying pt at this time. [facility] is closing referral and will consider taking him if he does not have placement. CM to follow. Plan: SNF Date Signed: 11/19/2017 02:07 PM Electronically Signed By:AUBREE Allen
--- NOTE | 2017-11-19 19:39 | HOSPPROG ---
Hospitalist Progress Note Assessment/Plan: DIAGNOSES: * MSSA pneumonia with early cavitation, [facility] b[facility]) -IV ancef through 11/30 - maybe longer * Massive volume overload - right heart failure (CTA negative for PE)(NOT diastolic disease, no pulmonary edema) -continue with slower diuresis now with elevated BUN and becoming alkalotic -cause for right-sided heart failure uncertain, suspect he likely has obesity hypoventilation syndrome, question sleep apnea as well -scrotal edema - improving, leg edema appears to also be improving; I&Os and weights appear to me to be fairly inaccurate as recorded so far compared to his clinical course * pre renal azotemia and contraction alkalosis, new onset at this time due to ongoing aggressive diuresis * Large left pleural effusion status post thoracentesis 11/18 * DM 1 -remains not ideally controlled * Hematuria - mild, due to dunn trauma, ongoing at this time with gross hematuria but no clots in his emptying bladder well; ultrasounds negative * Acute hypoxemic respiratory failure - remains on 4 L oxygen but overall is stable at present * Rash due to nafcillin and previous hospital but tolerating Ancef well * Obesity BMI 32 PLANS: -continue current antibiotics -continue Lasix and follow BUN and acid-base and electrolytes closely; continue low-salt diet and compression stockings of legs -I did review with him today the negative impact that his extensive degree of supine bed rest is having on his physical strength, bone density, and vascular responsivivity to upright posture -continue physical occupational therapy -will further increase Lantus today and suspect he needs further increases in short-acting as well SUBJECTIVE: He feels unchanged from yesterday, no pain, no change in his level of dyspnea Still quite weak and having difficulty with walking OBJECTIVE Vitals reviewed: Stable without fever Asset Protection Lead, my review: Exam: alert oriented skin warm dry color ok resps not labored 4 L of oxygen lungs left-sided breath sounds better after thoracentesis, right side with a few rales heart regular abd soft nondistended nontender, bowel sounds present limbs warm, still with significant edema of the abdominal wall in legs the patient states less than previous iv site ok Microbiology data: Cultures here remained negative so for Objective: Vital Signs Temp Pulse Resp BP Pulse Ox 36.4 C 93 16 124/83 H 97 11/19/17 16:00 11/19/17 16:00 11/19/17 16:00 11/19/17 16:00 11/19/17 16:00 Microbiology 11/18/17 11:20 Gram Stain - Final Pleural Fluid - Aspirate 11/18/17 11:30 Gram Stain - Final Thoracic Fluid - Aspirate Body Fluid Culture - Final Laboratory Results 11/18/17 05:10 11/19/17 05:10 11/18/17 11/19/17 11/20/17 06:59 06:59 06:59 Intake Total 1430 1740 Output Total 5850 1275 1850 Balance -5850 155 -110 PT 13.9 SEC (12.0-15.0) 11/18/17 09:50 INR 1.05 (0.83-1.16) 11/18/17 09:50 - Time Spent With Patient Time Spent with Patient: greater than 35 minutes Time Spent with Patient: Greater than 35 minutes spent on this patients care, greater than 50% of time spent counseling, educating, and coordinating care regarding the above mentioned plan. ICD10 Worksheet Patient Problems: Problems Problem Status Onset Anemia Acute Hypoxia Acute Multifocal pneumonia Acute Pleural effusion Acute Pneumonia Acute Volume overload Acute
[2017-11-19] MEDS: ACETAMINOPHEN 325 MG TAB PO PRN (20:59)
[2017-11-19] MEDS: traZODone 50 MG TAB PO SCH (20:59)
[2017-11-20] MEDS: IBUPROFEN 600 MG TAB PO PRN (03:46)
[2017-11-20] MEDS: ACETAMINOPHEN 325 MG TAB PO PRN ×3 (03:46→22:22)
[2017-11-20] MEDS: ceFAZolin 2 GM/SWFI 2 GM/20 ML SYR IVP SCH ×3 (05:37→22:22)
[2017-11-20] MEDS: ALBUMIN 25% 100 ML IV SCH ×2 (08:47→14:31)
[2017-11-20] MEDS: INSULIN LISPRO 100 UNIT/ML SC SCH ×6 (08:47→18:18)
[2017-11-20] MEDS: INSULIN GLARGINE 100 UNITS/ML UNIT SC SCH (08:47)
[2017-11-20] MEDS: NYSTATIN POWDER 15 GM BTL TP SCH ×2 (08:48→22:26)
[2017-11-20] MEDS: SODIUM CL NASAL 45 ML BTL EACHNARE SCH ×2 (08:49→22:26)
[2017-11-20] MEDS: FUROSEMIDE 40 MG/4 ML VIAL IVP SCH (10:47)
--- NOTE | 2017-11-20 12:13 | ASMTCMCOM ---
CM Note CM Note Notes: SWer let Pt. know today that both LTACs declined him. Pt. good with plan to d/c to [facility]. Confirmed for him that while he must stay 30-days, he can stay longer than that if he is eligible. Pt. asked SWer about federal disability benefits. Discussed the issues broadly, emphasizing that Pt. has to anticipate that he can no longer work to qualify for SSI/SSDI benefits. At Pt's request, provided four (4) resources for agencies that assist Pt. in applying for disability benefits. Pt. grateful. Plan: D/c to [facility] when ready. Date Signed: 11/20/2017 12:12 PM Electronically Signed By:Nadine Jackson LCSW
--- NOTE | 2017-11-20 13:49 | PCMIDPN ---
Assessment/Plan: # MSSA bacteremia and necrotizing left-sided PNA with early lung abscess. Looks much more vigorous today than my last exam, O2 requirement stable at 4L. Pleural fluid not c/w with empyema. CXR much improved s/p aspiration. AF. WBC normal --change stop date of high dose ancef to 12/16 --dc ok from ID standpoint --we will see him every couple days. #?hematuria: check UA again # Rash to nafcillin: resolved Microbiology HIV testing and QuantiFERON negative at outside hospital 11/10 blood cultures (2) neg 11/10 sputum culture: Bridgett 11/18 pleural fluid : NGTD medication cefazolin 2gm IV q8h, #7 Subjective: worried about timing of discharge worried about ongoing hematuria feeling stronger, walked 20 min today great appetite Objective: Vital Signs Temp Pulse Resp BP Pulse Ox 36.4 C 94 18 121/79 H 99 11/20/17 08:00 11/20/17 08:00 11/20/17 08:00 11/20/17 08:00 11/20/17 08:00 Microbiology 11/18/17 11:20 Gram Stain - Final Pleural Fluid - Aspirate Laboratory Results 11/18/17 05:10 11/20/17 05:40 11/19/17 11/20/17 11/21/17 05:59 05:59 05:59 Intake Total 1430 2490 Output Total 1275 2100 250 Balance 155 390 -250 - Physical Exam General Appearance: alert, no apparent distress Respiratory: crackles (L side), No accessory muscle use Neck: supple Cardiac/Chest: regular rate, rhythm Extremities: pedal edema Abdomen: non-tender, soft Skin: pallor, No rash Neuro/Psych: alert, normal mood/affect, oriented x 3, other (tattoos) - Line/s RUE PICC Lines: No drainage, No erythema ICD10 Worksheet Patient Problems: Problems Problem Status Onset Anemia Acute Hypoxia Acute Multifocal pneumonia Acute Pleural effusion Acute Pneumonia Acute Volume overload Acute
--- NOTE | 2017-11-20 14:03 | PDIAF ---
- Diagnosis Diagnosis: MSSA L sided necrotizing PNA and lung abscess Code Status: Full Code - Medication Management Discharge Medications: Medications to Continue on Transfer Acetaminophen [Tylenol 325mg (*)] 650 mg PO Q6 PRN 11/10/17 [Last Taken Unknown] Famotidine [Pepcid 20 MG (*)] 20 mg PO DAILY 11/10/17 [Last Taken 11/09/17 08:00 ] Herbals/Supplements -Info Only 1 ea PO DAILY 11/10/17 [Last Taken 11/09/17 08:00 ] Insulin Aspart [novoLOG] 6 - 10 unit SQ ACHS 11/10/17 [Last Taken 11/09/17 18:30 ] Insulin Detemir [Levemir] 20 unit SQ DAILY 11/10/17 [Last Taken 11/09/17 08:00] traZODone [traZODONE 50MG (*)] 50 mg PO HS 11/10/17 [Last Taken 11/09/17 21:00] [employer] Antibiotics: cefazolin 2gm IV [id number] [employer] Antibiotic Stop Date: 12/16/17 Discharge Medications: Refer to the Discharge Home Medication list for PRN reason. PICC Care - Routine: Yes - Labs/Radiology CBC w/diff Date: 11/25/17 (weekly saturday) CMP Date: 11/25/17 (weekly saturday) Call or Fax Lab and Imaging Results to: Kaleigh Mccord MD [phone] - Follow Up Care Current Providers and Referrals: Patient,NotPresent [Unknown] - As per Instructions Kaleigh Mccord MD [Medical Doctor] - 11/28/17 10:30 am
--- NOTE | 2017-11-20 16:26 | HOSPPROG ---
Hospitalist Progress Note Assessment/Plan: DIAGNOSES: * acute renal failure in setting of volume overload and ongoing diuresis, also got some motrin past two days (new issue today) -given his anasarca, very low albumin, proteinuria, obesity, and diabetes, I suspect he may well have nephrotic syndrome -at this time we are really unable to diurese him any further with Lasix even at the lower dose due to rising BUN and creatinine and I will stop his diuretic for the moment. Will also stop his order for Motrin * MSSA pneumonia with early cavitation, MSSA bacteremia (originally diagnosed and treated at [facility], still on antibiotics) -IV ancef through 11/30 - maybe longer * Massive volume overload - -this has been diagnosed as right-sided heart failure, but we have no documentation of right ventricular failure or pulmonary hypertension by as echo ; as we now get into a situation where his significant edema persists with out being able to confirm large diuresis and new onset of renal failure I am very concerned that this actually represents nephrotic syndrome instead of heart failure. He does have significant hypoalbuminemia and proteinuria * Large left pleural effusion status post thoracentesis 11/18 * DM 1 -remains not ideally controlled * Hematuria - mild, due to dunn trauma, ongoing at this time with gross hematuria but no clots in his emptying bladder well; ultrasounds negative * Acute hypoxemic respiratory failure - remains on 4 L oxygen but overall is stable at present * Rash due to nafcillin and previous hospital but tolerating Ancef well * Obesity BMI 32 PLANS: -continue current antibiotics -continue low-salt diet and compression stockings of legs -stop lasix for now -follow renal fxn closely -24 hour urine protein to look for possible nephrotic syndrome -nephrology consult at this time -no NSAIDs -will again increase Lantus today and likely increase short-acting doses with meals tomorrow -continue PT and OT SUBJECTIVE: He feels unchanged from yesterday, no pain, no change in his level of dyspnea Still quite weak and having difficulty with walking OBJECTIVE Vitals reviewed: Stable without fever Sensor Operator, my review: Exam: alert oriented skin warm dry color ok resps not labored 4 L of oxygen lungs left-sided breath sounds better after thoracentesis, right side with a few rales heart regular abd soft nondistended nontender, bowel sounds present limbs warm, still with significant edema of the abdominal wall in legs the patient states less than previous iv site ok Microbiology data: Cultures here remained negative so for I did review his outside records again looking is echocardiograms, he has good LV systolic function good valve anatomy and function, and good RV function. Pulmonary pressures could not be assessed due to lack of a tricuspid jet. Objective: Vital Signs Temp Pulse Resp BP Pulse Ox 36.4 C 94 18 121/79 H 99 11/20/17 08:00 11/20/17 08:00 11/20/17 08:00 11/20/17 08:00 11/20/17 08:00 Microbiology 11/18/17 11:20 Gram Stain - Final Pleural Fluid - Aspirate Laboratory Results 11/18/17 05:10 11/20/17 05:40 11/19/17 11/20/17 11/21/17 06:59 06:59 06:59 Intake Total 1430 2490 1250 Output Total 1275 2100 650 Balance 155 390 600 PT 13.9 SEC (12.0-15.0) 11/18/17 09:50 INR 1.05 (0.83-1.16) 11/18/17 09:50 - Time Spent With Patient Time Spent with Patient: greater than 35 minutes Time Spent with Patient: Greater than 35 minutes spent on this patients care, greater than 50% of time spent counseling, educating, and coordinating care regarding the above mentioned plan. ICD10 Worksheet Patient Problems: Problems Problem Status Onset Anemia Acute Hypoxia Acute Multifocal pneumonia Acute Pleural effusion Acute Pneumonia Acute Volume overload Acute
[2017-11-20] MEDS: traZODone 50 MG TAB PO SCH (22:22)
[2017-11-21] MEDS: ceFAZolin 2 GM/SWFI 2 GM/20 ML SYR IVP SCH ×3 (05:18→23:41)
[2017-11-21] MEDS: INSULIN GLARGINE 100 UNITS/ML UNIT SC SCH (08:42)
[2017-11-21] MEDS: NYSTATIN POWDER 15 GM BTL TP SCH ×2 (08:42→20:04)
[2017-11-21] MEDS: INSULIN LISPRO 100 UNIT/ML SC SCH ×6 (08:42→17:45)
[2017-11-21] MEDS: ALBUMIN 25% 100 ML IV SCH ×2 (08:43→14:33)
[2017-11-21] MEDS: ACETAMINOPHEN 325 MG TAB PO PRN ×3 (08:43→20:04)
[2017-11-21] MEDS: SODIUM CL NASAL 45 ML BTL EACHNARE SCH ×2 (08:43→20:05)
--- NOTE | 2017-11-21 15:48 | PDCONSULT ---
Health Data Analyst Note: Renal Consult Note CC: LE edema HPI: The patient is a 36 y/o M with a known h/o uncontrolled DM type 1 who was recently admitted from [facility] for SOB and occluded PICC line. He was hospitalized earlier in Sep 2017 for PNA with b/l effusions and subsequently treated with nafcillin since 11/03/17 for MSSA infection. He states that he began to develop significant LE edema early in October with significant weight gain, rash on his chest, and lower extremity swelling. Today, he states he continues to have shortness of breath despite several days of lasix. He remains edematous and is having trouble with ambulation, however, he normally uses a cane due to his chronic back pain. He received 2 days of Ibuprofen, however, normally does not take NSAIDs. He has not had any kidney issues in the past. In addition, he has been requiring multiple blood transfusions. Denies other ROS. PMHx: DM Type I, DKA, multi-focal PNA, and recent MSSA infection s/p hospitalization, chronic back pain Surgical Hx: Tonsillectomy/Adenoidectomy, lumbar spine fusion, thoracentesis Medications: List reviewed. Allergies: PCN, unknown and tolerating nafcillin Social Hx: +marijuana, no h/o ETOH, nicotine, or other illicit drug abuse Family Hx: Father-DM ROS: Negative 10-point review except as above. Objective: Temp Pulse Resp BP Pulse Ox 36.5 C 97 20 115/52 L 94 11/21/17 08:00 11/21/17 08:00 11/21/17 08:00 11/21/17 08:00 11/21/17 08:00 O2 (L/minute) 4 Physical exam: Gen: Moderate respiratory distress, obese HEENT: Dry MM, no trauma Neck: No thyromegaly, supple CV: Tachycardic, RRR, no murmurs RESP: Decreased b/s b/l with no wheezing ABD: Soft, mildly distended, +BS EXT: 2+ edema b/l NEURO: Non-focal, moving all extremities SKIN: No rashes noted. PSYCH: Normal affect, cooperative Labs: WBC 7.65 10^3/uL (3.80-9.50) 11/18/17 05:10 RBC 2.43 10^6/uL (4.40-6.38) L 11/18/17 05:10 Hgb 7.2 g/dL (13.7-17.5) L 11/18/17 05:10 Hct 23.1 % (40.0-51.0) L 11/18/17 05:10 MCV 95.1 fL (81.5-99.8) 11/18/17 05:10 MCH 29.6 pg (27.9-34.1) 11/18/17 05:10 MCHC 31.2 g/dL (32.4-36.7) L 11/18/17 05:10 RDW 13.5 % (11.5-15.2) 11/18/17 05:10 Plt Count 358 10^3/uL (150-400) 11/18/17 05:10 MPV 8.2 fL (8.7-11.7) L 11/18/17 05:10 Neut % (Auto) 66.7 % (39.3-74.2) 11/18/17 05:10 Lymph % (Auto) 15.9 % (15.0-45.0) 11/18/17 05:10 [place] % (Auto) 12.3 % (4.5-13.0) 11/18/17 05:10 Eos % (Auto) 3.1 % (0.6-7.6) 11/18/17 05:10 Baso % (Auto) 1.0 % (0.3-1.7) 11/18/17 05:10 Nucleat RBC Rel Count 0.0 % (0.0-0.2) 11/18/17 05:10 Absolute Neuts (auto) 5.09 10^3/uL (1.70-6.50) 11/18/17 05:10 Absolute Lymphs (auto) 1.22 10^3/uL (1.00-3.00) 11/18/17 05:10 Absolute Monos (auto) 0.94 10^3/uL (0.30-0.80) H 11/18/17 05:10 Absolute Eos (auto) 0.24 10^3/uL (0.03-0.40) 11/18/17 05:10 Absolute Basos (auto) 0.08 10^3/uL (0.02-0.10) 11/18/17 05:10 Absolute Nucleated RBC 0.00 10^3/uL (0-0.01) 11/18/17 05:10 Immature Gran % 1.0 % (0.0-1.1) 11/18/17 05:10 Immature Gran # 0.08 10^3/uL (0.00-0.10) 11/18/17 05:10 PT 13.9 SEC (12.0-15.0) 11/18/17 09:50 INR 1.05 (0.83-1.16) 11/18/17 09:50 APTT 31.0 SEC (23.0-38.0) 11/18/17 09:50 Puncture Site LEFT RADIAL 11/10/17 02:55 Patient Temperature 37.0 DEGREES 11/10/17 02:55 pCO2 40 mmHg (34-38) H 11/10/17 02:55 pO2 59 mmHg (65-75) L 11/10/17 02:55 Total CO2 31 mEq/L (23-27) H 11/10/17 02:55 ABG pH 7.48 (7.35-7.45) H 11/10/17 02:55 ABG HCO3 29 mEq/L (22-26) H 11/10/17 02:55 ABG O2 Saturation 91 % (92-95) L 11/10/17 02:55 ABG Base Excess 5.8 mEq/L (-2.5-2.5) H 11/10/17 02:55 VBG Lactic Acid 0.9 mmol/L (0.7-2.1) 11/10/17 01:37 Total O2 Concentration 5.0 LITERS 11/10/17 02:55 Sodium 139 mEq/L (135-145) 11/21/17 05:15 Potassium 5.3 mEq/L (3.5-5.2) H 11/21/17 05:15 Chloride 101 mEq/L (97-110) 11/21/17 05:15 Carbon Dioxide 28 mEq/l (22-31) 11/21/17 05:15 Anion Gap 10 mEq/L (8-16) 11/21/17 05:15 BUN 75 mg/dL (7-23) H 11/21/17 05:15 Creatinine 1.4 mg/dL (0.7-1.3) H 11/21/17 05:15 Estimated GFR 57 11/21/17 05:15 Glucose 170 mg/dL (70-100) H 11/21/17 05:15 POC Glucose 276 mg/dL (70-100) H 11/21/17 11:50 Hemoglobin A1c 9.1 % (4.0-6.0) H 11/10/17 04:25 Estim Average Glucose 214 mg/dL (68-126) H 11/10/17 04:25 Calcium 8.5 mg/dL (8.5-10.4) 11/21/17 05:15 Ionized Calcium 1.10 MMOL/L (1.12-1.30) L 11/11/17 05:20 Phosphorus 5.5 mg/dL (2.5-4.5) H 11/21/17 05:15 Magnesium 1.7 mg/dL (1.6-2.3) 11/11/17 05:20 Total Bilirubin 0.2 mg/dL (0.1-1.4) 11/17/17 05:10 Conjugated Bilirubin 0.2 mg/dL (0.0-0.5) 11/17/17 05:10 Unconjugated Bilirubin 0.0 mg/dL (0.0-1.1) 11/17/17 05:10 AST 44 IU/L (17-59) 11/17/17 05:10 ALT 27 IU/L (21-72) 11/17/17 05:10 Alkaline Phosphatase 373 IU/L (38-126) H 11/17/17 05:10 Troponin I < 0.012 ng/mL (0.000-0.034) 11/10/17 01:00 NT-Pro-B Natriuret Pep 3910 pg/mL (0-125) H 11/10/17 01:00 Total Protein 5.9 g/dL (6.3-8.2) L 11/17/17 05:10 Albumin 2.8 g/dL (3.5-5.0) L 11/21/17 05:15 Prealbumin 8.5 mg/dL (17.6-36.0) L 11/10/17 04:25 Triglycerides 38 mg/dL (40-150) L 11/21/17 05:15 Cholesterol 98 mg/dL (140-200) L 11/21/17 05:15 Cholesterol Risk Factr 0.5 (0.2-1.0) 11/21/17 05:15 LDL Cholesterol, Calc 59 mg/dL (70-100) L 11/21/17 05:15 LDL Risk Factor 0.8 (0.2-1.0) 11/21/17 05:15 VLDL Cholesterol 7 mg/dL (8-25) L 11/21/17 05:15 Non-HDL Cholesterol 66 mg/dL (90-129) L 11/21/17 05:15 HDL Cholesterol 32 mg/dL (40-65) L 11/21/17 05:15 LDL/HDL Ratio 1.84 RATIO (1.00-3.64) 11/21/17 05:15 Cholesterol/HDL Ratio 3.06 RATIO (1.00-4.97) 11/21/17 05:15 TSH 8.190 uIU/mL (0.465-4.680) H 11/17/17 05:10 Free T4 0.94 ng/dL (0.59-2.19) 11/18/17 05:00 Urine Color YELLOW 11/20/17 14:15 Urine Appearance HAZY 11/20/17 14:15 Urine pH 6.0 (5.0-7.5) 11/20/17 14:15 Ur Specific Success 1.010 (1.002-1.030) 11/20/17 14:15 Urine Protein 2+ (NEGATIVE) H 11/20/17 14:15 Urine Ketones NEGATIVE (NEGATIVE) 11/20/17 14:15 Urine Blood 3+ (NEGATIVE) H 11/20/17 14:15 Urine Nitrate NEGATIVE (NEGATIVE) 11/20/17 14:15 Urine Bilirubin NEGATIVE (NEGATIVE) 11/20/17 14:15 Urine Urobilinogen NEGATIVE EU (0.2-1.0) 11/20/17 14:15 Ur Leukocyte Esterase NEGATIVE (NEGATIVE) 11/20/17 14:15 Urine RBC 50-182 /hpf (0-3) H 11/20/17 14:15 Urine WBC 10-15 /hpf (0-3) H 11/20/17 14:15 Ur Epithelial Cells NONE SEEN /lpf (NONE-1+) 11/20/17 14:15 Urine Bacteria 1+ /hpf (NONE SEEN) H 11/14/17 08:50 Urine Mucus TRACE /lpf (NONE-1+) 11/20/17 14:15 Ur Random Creatinine 12.8 mg/dL 11/20/17 14:15 Urine Glucose NEGATIVE (NEGATIVE) 11/20/17 14:15 Fluid pH Cancelled 11/18/17 11:30 Fluid Mes[place] % 31 % 11/18/17 11:30 Fl Pathologist Review Luis Angel WISE MD 11/18/17 11:30 Fluid Total Protein Cancelled 11/17/17 11:00 Pleural Fluid Source PLEURAL 11/18/17 11:30 Pleural Color YELLOW (STRAW/YELL) 11/18/17 11:30 Pleural Appearance HAZY (CLEAR) H 11/18/17 11:30 Pleural pH 7.5 (6.8-7.6) 11/18/17 11:30 Pleural WBC 433 /mm3 11/18/17 11:30 Pleural RBC 40 /MM3 11/18/17 11:30 Pleural Neutrophils 62 % 11/18/17 11:30 Pleural Lymphocytes % 7 % 11/18/17 11:30 Pleural Total Protein 2.1 g/dL 11/17/17 11:00 Pleural LDH 205 IU/L 11/18/17 11:30 Pleural Glucose 175 mg/dL (55-113) H 11/18/17 11:30 Nasal Influenza A PCR NEGATIVE FOR FLU A (NEGATIVE) 11/10/17 01:25 Nasal Influenza B PCR NEGATIVE FOR FLU B (NEGATIVE) 11/10/17 01:25 Vancomycin Trough 13.4 mcg/mL (5.0-20.0) 11/11/17 08:04 C. difficile Tox (PCR) NEGATIVE (NEGATIVE) 11/11/17 03:50 Cytology RECEIVED 11/18/17 11:30 Patient ABO/Rh O POSITIVE 11/10/17 04:25 Antibody Screen NEGATIVE 11/10/17 04:25 Imaging: Renal US resuults reviewed. A/P: The patient is a 36 y/o M with a known h/o Type I DM, PNA and MSSA infection on multiple antibiotics who presents with edema and MELANIE. Etiology may be DM nephropathy with nephrotic syndrome vs ATN or AIN 2/2 to nafcillin, however, given hematuria and lung involvement cannot r/o RPGN such as vasculitis. MELANIE -baseline Cr 0.5, now up to 1.4mg/dL with diuresis -echo WNL per primary team -send urine culture -urine protein:cr 24h pending -holding NSAIDs, avoid contrast -will send serologies including KATHY, complements, ASO, anti-GBM, ANCA's -of note HIV, hep panel previously negative -would make NPO after midnight and will schedule renal biopsy, may require transfusion prior Hyperkalemia -mild, however, may continue to require lasix -renal diet -monitor on telemetry Multi-focal PNA with b/l effusions -reportedly had bronchoscopy at outside hospital -may need to discuss change in abx with ID Volume overload -will need some scheduled lasix 60-80mg IV BID -hold fluids -respiratory acidosis with metabolic compensation on O2 -continue dunn Anemia -unclear etiology -most likely not related to chronic renal disease -transfusion per primary team Will continue to follow. Please contact if ?s. [phone].
--- NOTE | 2017-11-21 16:17 | HOSPPROG ---
Hospitalist Progress Note Assessment/Plan: This patient was admitted here from [facility]. He originally was admitted in September to the [facility] with severe necrotizing staff coccal pneumonia bacteremia, complicated by anasarca, severe weakness deconditioning and inability ambulate. He was transferred to [facility] from that hospital for ongoing physical therapy and antibiotics were to go on through mid September. He was transferred here at this time because of trouble with his PICC catheter, weakness, and shortness of breath. His IV access is now established without difficulty. We have continued to try to treat his dyspnea and hypoxemia and anasarca with Lasix diuresis, however this has not really been successful by overall I and O measurements or weight measurements, and now in the setting of persisting anasarca with rising BUN and creatinine. He had been diagnosed with heart failure based on his edema at [facility] and the diagnosis of right-sided heart failure was ongoing here though on review of his echocardiograms there is no finding to suggest he actually has heart failure right or left-sided. I am now concerned about possible nephrotic syndrome and I have asked for neurology consultation. He is at this time receiving ongoing hospital care because of the new development of renal failure and the assessment of possible nephrotic syndrome. Otherwise he is stable to go back to the nursing facility for ongoing physical therapy and IV antibiotic therapy. He is actually now getting enough strength but by the time he is ready for discharge from here he could potentially be discharged home with home IV therapy if that or available by his insurance. DIAGNOSES: * acute renal failure in setting of volume overload and ongoing diuresis, also got some motrin past two days (new issue today) -given his anasarca, very low albumin, proteinuria, obesity, and diabetes, I suspect he may well have nephrotic syndrome -at this time we are really unable to diurese him any further with Lasix even at the lower dose due to rising BUN and creatinine and I will stop his diuretic for the moment. Will also stop his order for Motrin * MSSA pneumonia with early cavitation, MSSA bacteremia (originally diagnosed and treated at [facility], still on antibiotics) -IV ancef through 11/30 - maybe longer * Anasarca -this has been diagnosed as right-sided heart failure, but we have no documentation of right ventricular failure or pulmonary hypertension none of which were present on his echo from [facility]; as his anasarca persists without chart documentation of much diuresis on Lasix and new onset of renal failure I am very concerned that this actually represents nephrotic syndrome instead of heart failure. He does have significant hypoalbuminemia and proteinuria * Large left pleural effusion status post thoracentesis 11/18 * DM 1 -remains not ideally controlled * Hematuria - mild, due to dunn trauma, ongoing at this time with gross hematuria but no clots in his emptying bladder well; ultrasounds negative * Acute hypoxemic respiratory failure - remains on 4 L oxygen but overall is stable at present * Rash due to nafcillin and previous hospital but tolerating Ancef well * Obesity BMI 32 I reviewed all the above in detail with the patient and will review further with cat scan technologist as they see him PLANS: -continue current antibiotics -continue low-salt diet and compression stockings of legs -stop lasix for now and no NSAIDs -follow renal fxn closely -24 hour urine protein to look for possible nephrotic syndrome -awaiting nephrology consult at this time -will again increase Lantus to 15 U HS, and increase the standing pre meal insulin to 5 U Humalog with additional sliding scale, follow sugars closely -continue PT and OT -again strongly encourage increase in physical activity SUBJECTIVE: Feels about the same as yesterday Continued improvement in weakness Still eating very well Not short of breath on oxygen but still needing significant oxygen Has started 24 hr urine collection OBJECTIVE Vitals reviewed: Stable without fever Audiovisual Tech, my review: Exam: alert oriented skin warm dry color ok resps not labored 4 L of oxygen lungs still a few rales, overall decreased breath sounds heart regular abd soft nondistended nontender, bowel sounds present limbs warm, still with anasarca unchanged over the last 3 days iv site ok Microbiology data: Cultures here remain negative so for I did review his outside records again looking is echocardiograms, he has good LV systolic function good valve anatomy and function, and good RV function. Pulmonary pressures could not be assessed due to lack of a tricuspid jet. Objective: Vital Signs Temp Pulse Resp BP Pulse Ox 36.2 C 94 16 142/96 H 98 11/21/17 15:47 11/21/17 15:47 11/21/17 15:47 11/21/17 15:47 11/21/17 15:47 Microbiology 11/18/17 11:20 Gram Stain - Final Pleural Fluid - Aspirate Body Fluid Culture - Final Laboratory Results 11/18/17 05:10 11/21/17 05:15 11/20/17 11/21/17 11/22/17 06:59 06:59 06:59 Intake Total 2490 2150 Output Total 2100 2250 675 Balance 390 -100 -675 PT 13.9 SEC (12.0-15.0) 11/18/17 09:50 INR 1.05 (0.83-1.16) 11/18/17 09:50 - Time Spent With Patient Time Spent with Patient: greater than 35 minutes Time Spent with Patient: Greater than 35 minutes spent on this patients care, greater than 50% of time spent counseling, educating, and coordinating care regarding the above mentioned plan. ICD10 Worksheet Patient Problems: Problems Problem Status Onset Anemia Acute Hypoxia Acute Multifocal pneumonia Acute Pleural effusion Acute Pneumonia Acute Volume overload Acute
[2017-11-21 19:51] LABS: PLATELET COUNT 243 10^3/uL (150-400)
[2017-11-21 20:00] LABS: INR 1.17 (0.83-1.16); PROTIME(PATIENT) 15.1 SEC (12.0-15.0)
[2017-11-21] MEDS: traZODone 50 MG TAB PO SCH (20:04)
[2017-11-21] MEDS: oxyCODONE IR 5 MG TAB PO PRN (22:22)
[2017-11-22] MEDS: oxyCODONE IR 5 MG TAB PO PRN ×4 (03:40→22:02)
[2017-11-22] MEDS: ceFAZolin 2 GM/SWFI 2 GM/20 ML SYR IVP SCH ×3 (05:53→22:02)
[2017-11-22] MEDS: ACETAMINOPHEN 325 MG TAB PO PRN ×2 (09:05→17:30)
[2017-11-22] MEDS: FUROSEMIDE 40 MG/4 ML VIAL IVP SCH ×2 (09:06→14:46)
[2017-11-22] MEDS: ALBUMIN 25% 100 ML IV SCH ×2 (09:06→14:45)
[2017-11-22] MEDS: INSULIN LISPRO 100 UNIT/ML SC SCH ×5 (09:07→17:46)
[2017-11-22] MEDS: INSULIN GLARGINE 100 UNITS/ML UNIT SC SCH (09:09)
[2017-11-22] MEDS: NYSTATIN POWDER 15 GM BTL TP SCH ×2 (09:10→22:17)
[2017-11-22] MEDS: SODIUM CL NASAL 45 ML BTL EACHNARE SCH ×2 (09:11→22:17)
[2017-11-22] MEDS ORDERED: fentaNYL 100 MCG/2 ML INJ IVP PRN (10:39)
[2017-11-22] MEDS ORDERED: NALOXONE HCL 0.4 MG/ML INJ IVP PRN (10:39)
[2017-11-22] MEDS ORDERED: FLUMAZENIL 0.5 MG/5 ML MDV IVP PRN (10:39)
[2017-11-22] MEDS ORDERED: MEPERIDINE 25 MG/ML SYR IVP PRN (10:39)
[2017-11-22] MEDS ORDERED: MIDAZOLAM 2 MG/2 ML VIAL IVP PRN (10:39)
[2017-11-22] MEDS ORDERED: NS 1,000 ML IV SCH (10:45)
--- NOTE | 2017-11-22 11:04 | PDPROPOC ---
Sedation Plan of Care ASA Classification: ASA 1 Mallampati Reference Image: Patient passed 3-3-2 rule?: Yes
--- NOTE | 2017-11-22 12:05 | PDRADPN ---
Radiology Procedure Note Date of Procedure: 11/22/17 Radiologist: Shamir Flower Anesthesia: IV Sedation Pre-op Diagnosis: acute renal failure Post-op Diagnosis: acute renal failure Indication: acute renal failure Procedure: CT guided left renal biopsy Finding(s): No immediate complication Inf/Abcess present in the surg proc area at time of surgery?: No Depth: Organ Space (kidney) EBL: Minimal Complications: No immediate Specimen(s): 2 18 gauge core biopsies
--- NOTE | 2017-11-22 14:16 | SOAPPROG ---
SOAP Progress Note Assessment/Plan: A/P: The patient is a 36 y/o M with a known h/o Type I DM, PNA and MSSA infection on multiple antibiotics who presents with edema and MELANIE. Etiology may be DM nephropathy with nephrotic syndrome vs ATN or AIN 2/2 to nafcillin, however, given hematuria and lung involvement cannot r/o RPGN such as vasculitis. MELANIE with nephrotic syndrome -baseline Cr 0.5, now up to 1.6 with diuresis -echo WNL per primary team -sent urine culture -urine protein:cr 24h 15g -holding NSAIDs, avoid contrast -serologies including KATHY, complements, ASO, anti-GBM, ANCA's pending -of note HIV, hep panel previously negative -s/p renal biopsy today with 2 cores, path pending -sent lipid panel, not on statin -albumin >3, on lovenox ppx Hyperkalemia -mild, however, may continue to require lasix -renal diet -monitor on telemetry Multi-focal PNA with b/l effusions -reportedly had bronchoscopy at outside hospital -may need to discuss change in abx with ID if AIN Volume overload -continue scheduled lasix 60-80mg IV BID -respiratory acidosis with metabolic compensation on O2 Anemia -unclear etiology -s/p transfusion yester -most likely not related to chronic renal disease -GI consult Will continue to follow. Please contact if ?s. [phone]. 11/22/17 14:16 Subjective: Patient tolerated renal biopsy this AM. Monitoring for bleeding. Objective: Vital Signs Temp Pulse Resp BP Pulse Ox 36.6 C 99 18 132/96 H 98 11/22/17 07:38 11/22/17 07:38 11/22/17 07:38 11/22/17 11:54 11/22/17 11:56 Microbiology 11/18/17 11:20 Gram Stain - Final Pleural Fluid - Aspirate Body Fluid Culture - Final Laboratory Results 11/22/17 12:30 11/22/17 10:33 11/21/17 11/22/17 11/23/17 05:59 05:59 05:59 Intake Total 2150 1540 Output Total 2250 675 Balance -100 865 PT 15.1 SEC (12.0-15.0) H 11/21/17 19:45 INR 1.17 (0.83-1.16) H 11/21/17 19:45 Physical Exam - Physical Exam General Appearance: WD/WN, alert, mild distress, obese EENT: PERRL/EOMI, normal ENT inspection Neck: non-tender, supple Respiratory: accessory muscle use, decreased breath sounds Cardiac/Chest: regular rate, rhythm, edema, JVD Abdomen: normal bowel sounds, non-tender, soft, distended Skin: normal color, warm/dry Extremities: normal range of motion, non-tender, pedal edema Neuro/Psych: no motor/sensory deficits, alert, oriented x 3, abnormal gait ICD10 Worksheet Patient Problems: Problems Problem Status Onset Anemia Acute Hypoxia Acute Multifocal pneumonia Acute Pleural effusion Acute Pneumonia Acute Volume overload Acute
--- NOTE | 2017-11-22 14:37 | ASMTCMCOM ---
CM Note CM Note Notes: Pt. still ill and having medical work-ups per MD notes. [facility] [employer]. Left msg for Ame at to let her know. Plan: [facility] when ready. Date Signed: 11/22/2017 02:37 PM Electronically Signed By:Nadine Jackson LCSW
--- NOTE | 2017-11-22 15:47 | PCMIDPN ---
Assessment/Plan: # MSSA bacteremia and necrotizing left-sided PNA with early lung abscess. Noted findings of nephrotic syndrome with biopsy pending, some concern for AIN --change stop date antibiotics is 12/16 --continue cefazolin for now until biopsy results. Cefazolin with superior lung penetration compared to vancomycin, but if has AIN will switch back to vancomycin. --we will see patient every couple days, call for questions # Renal insuffiency, nephrotic syndrome. Appreciate renal consult # Rash to nafcillin: resolved Microbiology HIV testing and QuantiFERON negative at outside hospital 11/10 blood cultures (2) neg 11/10 sputum culture: Bridgett 11/18 pleural fluid : NGTD medication cefazolin 2gm IV q8h, #9 Subjective: patient a bit low today with new medical issues no diarrhea Objective: Vital Signs Temp Pulse Resp BP Pulse Ox 36.3 C 91 18 138/95 H 96 11/22/17 15:14 11/22/17 15:14 11/22/17 15:14 11/22/17 15:14 11/22/17 15:14 Microbiology 11/18/17 11:20 Gram Stain - Final Pleural Fluid - Aspirate Body Fluid Culture - Final Laboratory Results 11/22/17 14:40 11/22/17 10:33 11/21/17 11/22/17 11/23/17 05:59 05:59 05:59 Intake Total 2150 1540 Output Total 2250 675 400 Balance -100 865 -400 - Physical Exam General Appearance: alert, no apparent distress, obese Respiratory: crackles (L mid lung field), other (decreased bs L base), No accessory muscle use Neck: supple Cardiac/Chest: regular rate, rhythm Extremities: pedal edema, other (anasarca) Abdomen: normal bowel sounds, non-tender, soft Skin: pallor, No rash Neuro/Psych: alert, oriented x 3, depressed affect - Line/s RUE PICC Lines: No drainage, No erythema ICD10 Worksheet Patient Problems: Problems Problem Status Onset Anemia Acute Hypoxia Acute Multifocal pneumonia Acute Pleural effusion Acute Pneumonia Acute Volume overload Acute
--- NOTE | 2017-11-22 16:12 | HOSPPROG ---
Hospitalist Progress Note Assessment/Plan: AHRF 2/2 necrotizing PNA with early lung abscess and acute right heart failure with b/l pleural effusions. Echo showed RV pressure overload. S/P thoracentesis 11/18, Cx neg. CTA neg for PE. Also consider element of OHS. Requiring 5 LPM. -Cont Cefazolin, ID following -Cont aggressive diuresis, tolerating some rise in Cr MSSA bacteremia - atbx stop date 12/16 Volume overload / anasarca - likely due to RHF (RVSP 57 on recent echo with moderate pulmonary hypertension). -cont diuresis as above MELANIE - Cr on the rise, up to 1.6. Suspect diabetic nephropathy and associated nephrotic syndrome based on 24 hr urine protein. Also consider ATN vs AIN from Nafcillin vs RPGN with hematuria and pulmonary involvement. Appreciate renal assistance. -avoid nsaids / nephrotoxic agents -further GN / vasculitis w/u per renal -renal biopsy today, f/u path results Hyperkalemia - in setting of MELANIE, stable ~5.1-5.3 -cont lasix, renal diet -kayexalate if on the rise -daily renal panels Anemia - Normocytic, ?ACD. Unlikely due to CKD as he presented with normal Cr. Smear shows microcytosis and hypochromasia, suggestive of Fe deficiency. -send iron studies -check retic count, haptoglobin (bili previously normal arguing against hemolysis) -check hemoccult stool -likely warrants GI evaluation Hematuria - mild, pink tinged urine, thought to be from traumatic dunn. Voiding independently now. Monitor. Type 1 DM - bg's 100's, cont basal / bolus insulin regimen SPCM - dietary consult, albumin up to 3.2 from 2 on arrival. DVT PPLX - defer pharm with low hgb requiring transfusion and hematuria, SCD's Full code Dispo - cont inpt Subjective: Pt feels ok. A bit SOB and orthopneic (required to lie supine post- renal biopsy). Denies CP. No fevers, less cough. Still some blood tinged urine. Taking po. Objective: Vital Signs Temp Pulse Resp BP Pulse Ox 97.6 C H 96 18 148/96 H 93 11/22/17 16:09 11/22/17 16:09 11/22/17 16:09 11/22/17 16:09 11/22/17 16:09 Microbiology 11/18/17 11:20 Gram Stain - Final Pleural Fluid - Aspirate Body Fluid Culture - Final Laboratory Results 11/22/17 14:40 11/22/17 10:33 11/21/17 11/22/17 11/23/17 05:59 05:59 05:59 Intake Total 2150 1540 Output Total 2250 675 400 Balance -100 865 -400 PT 15.1 SEC (12.0-15.0) H 11/21/17 19:45 INR 1.17 (0.83-1.16) H 11/21/17 19:45 - Physical Exam Constitutional: obese Eyes: PERRL Ears, Nose, Mouth, Throat: moist mucous membranes Cardiovascular: regular rate and rhythym Respiratory: no respiratory distress, inspiratory crackles Gastrointestinal: normoactive bowel sounds, soft, non-tender abdomen, other ( obese) Skin: warm Musculoskeletal: other (anasarca) Neurologic: AAOx3 Psychiatric: interacting appropriately ICD10 Worksheet Patient Problems: Problems Problem Status Onset Anemia Acute Hypoxia Acute Multifocal pneumonia Acute Pleural effusion Acute Pneumonia Acute Volume overload Acute
[2017-11-22] MEDS: traZODone 50 MG TAB PO SCH (22:03)
[2017-11-23] MEDS: ceFAZolin 2 GM/SWFI 2 GM/20 ML SYR IVP SCH ×3 (05:28→22:07)
[2017-11-23] MEDS: ALBUMIN 25% 100 ML IV SCH (08:58)
[2017-11-23] MEDS: INSULIN GLARGINE 100 UNITS/ML UNIT SC SCH (08:58)
[2017-11-23] MEDS: FUROSEMIDE 40 MG/4 ML VIAL IVP SCH ×2 (08:58→15:35)
[2017-11-23] MEDS: NYSTATIN POWDER 15 GM BTL TP SCH ×2 (08:59→22:23)
[2017-11-23] MEDS: SODIUM CL NASAL 45 ML BTL EACHNARE SCH ×2 (08:59→22:23)
[2017-11-23] MEDS: INSULIN LISPRO 100 UNIT/ML SC SCH ×3 (08:59→18:17)
--- NOTE | 2017-11-23 11:05 | HOSPPROG ---
Hospitalist Progress Note Assessment/Plan: AHRF 2/ necrotizing PNA with early lung abscess and acute right heart failure with b/l pleural effusions. Echo showed RV pressure overload. S/P thoracentesis 11/18, Cx neg. CTA neg for PE. Also consider element of OHS. Requiring 5 LPM. -Cont Cefazolin, ID following -Cont aggressive diuresis, tolerating some rise in Cr -repeat CXR and BNP today, consider repeat CT MSSA bacteremia due to above - atbx stop date 12/16 Volume overload / anasarca - likely due to RHF (RVSP 57 on recent echo with moderate pulmonary hypertension). -cont diuresis as above -stop IV albumin MELANIE - Cr on the rise, up to 1.7. May be hastened by diuresis. Consider diabetic nephropathy with associated nephrotic syndrome based on 24 hr urine protein of 15g (though I note he was receiving IV Albumin infusions during this collection). Also consider ATN vs AIN from Nafcillin vs RPGN. Vasculitis remains a concern with hematuria and pulmonary involvement. Appreciate renal assistance. -send ANCA panel, ?wegeners -avoid nsaids / nephrotoxic agents -further GN w/u per renal -renal biopsy 11/22, f/u path results Hyperkalemia - in setting of MELANIE, stable ~5.1-5.3, stable / improved today -cont lasix, renal diet -daily renal panels Anemia - Smear shows microcytosis and hypochromasia, suggestive of Fe deficiency. Fe studies c/w ACD. Unlikely due to CKD as he presented with normal Cr. -check hemoccult stool -likely warrants GI evaluation when acute issues stabilized Hypothyroidism - TSH 8.2, nl free T4 -send free T3 -may be sub-clinical hypothyroidism, but will start synthroid as this should be treated given other co-morbidities -recheck in 6-8 weeks Hematuria - mild, pink tinged urine, thought to be from traumatic dunn. Voiding independently now. Monitor. Type 1 DM - bg's 100's, cont basal / bolus insulin regimen SPCM - dietary consult, albumin up to 3.2 from 2 on arrival. -d/c IV albumin DVT PPLX - defer pharm with low hgb requiring transfusion and hematuria, SCD's Full code Dispo - cont inpt Subjective: Pt doing ok, still a bit SOB, on 5 LPM O2. No CP. +orthopnea. No fevers. Eating well. Objective: Vital Signs Temp Pulse Resp BP Pulse Ox 36.0 C 92 16 139/99 H 93 11/23/17 08:00 11/23/17 08:00 11/23/17 08:00 11/23/17 08:00 11/23/17 08:00 Laboratory Results 11/23/17 09:05 11/23/17 02:30 11/22/17 11/23/17 11/24/17 05:59 05:59 05:59 Intake Total 1540 475 Output Total 675 1925 Balance 865 -1450 PT 15.1 SEC (12.0-15.0) H 11/21/17 19:45 INR 1.17 (0.83-1.16) H 11/21/17 19:45 - Physical Exam Constitutional: no apparent distress, obese Eyes: PERRL Ears, Nose, Mouth, Throat: moist mucous membranes Cardiovascular: regular rate and rhythym Respiratory: no respiratory distress, inspiratory crackles Gastrointestinal: normoactive bowel sounds, soft, non-tender abdomen Skin: warm Musculoskeletal: full muscle strength, other (1+ b/l LE edema) Neurologic: AAOx3 Psychiatric: interacting appropriately ICD10 Worksheet Patient Problems: Problems Problem Status Onset Anemia Acute Hypoxia Acute Multifocal pneumonia Acute Pleural effusion Acute Pneumonia Acute Volume overload Acute
[2017-11-23] MEDS: ACETAMINOPHEN 325 MG TAB PO PRN (11:16)
[2017-11-23] MEDS: oxyCODONE IR 5 MG TAB PO PRN ×2 (11:16→22:07)
[2017-11-23] MEDS: LEVOTHYROXINE 25 MCG TAB PO SCH (11:20)
--- NOTE | 2017-11-23 16:14 | SOAPPROG ---
SOAP Progress Note Assessment/Plan: Assessment: 36 y/o M with a known h/o Type I DM, PNA and MSSA infection on multiple antibiotics who presents with edema and MELANIE. Etiology may be DM nephropathy with nephrotic syndrome vs ATN or AIN 2/2 to nafcillin, however, given hematuria and lung involvement cannot r/o RPGN such as vasculitis. MELANIE with nephrotic syndrome -baseline Cr 0.5, now up to 1.7 with diuresis- ok to continue lasix as still quite volume up -echo WNL per primary team -urine protein:cr 24h 15g- may have underlying DM component but need to rule out other GN -holding NSAIDs, avoid contrast -serologies neg thus far: C3, C4, MPO, PR3, AntiGBM, ASO. Awaiting KATHY -of note HIV, hep panel previously negative -s/p renal biopsy 11/22- tolerated ok Hyperkalemia -mild, however, may continue to require lasix -renal diet -monitor on telemetry Multi-focal PNA with b/l effusions, MSSA bacteremia -reportedly had bronchoscopy at outside hospital -may need to discuss change in abx with ID if AIN- await biopsy results Volume overload -continue scheduled lasix 60-80mg IV BID with albumin- ok to hold the albumin today to see how response off it -respiratory acidosis with metabolic compensation on O2 Anemia -unclear etiology -s/p transfusion -most likely not related to chronic renal disease -GI consult -hct stable post biopsy- continue to monitor I discussed with Dr. Florentino Banks MD [facility] [phone] 11/23/17 17:49 Subjective: Feels ok. No gross hematuria. no flank pain. no sob. +LE edema. Objective: Vital Signs Temp Pulse Resp BP Pulse Ox 36.4 C 96 18 119/85 H 96 11/23/17 15:47 11/23/17 15:47 11/23/17 15:47 11/23/17 15:47 11/23/17 15:47 Laboratory Results 11/23/17 09:05 11/23/17 02:30 11/22/17 11/23/17 11/24/17 05:59 05:59 05:59 Intake Total 1540 475 Output Total 675 1925 Balance 865 -1450 PT 15.1 SEC (12.0-15.0) H 11/21/17 19:45 INR 1.17 (0.83-1.16) H 11/21/17 19:45 Physical Exam - Physical Exam General Appearance: alert, no apparent distress EENT: other (mmm) Cardiac/Chest: regular rate, rhythm Abdomen: non-tender, soft Skin: warm/dry Extremities: other (++edema bilat LE) Neuro/Psych: alert, normal mood/affect, oriented x 3 ICD10 Worksheet Patient Problems: Problems Problem Status Onset Anemia Acute Hypoxia Acute Multifocal pneumonia Acute Pleural effusion Acute Pneumonia Acute Volume overload Acute
[2017-11-23] MEDS: traZODone 50 MG TAB PO SCH (22:07)
[2017-11-24] MEDS: ceFAZolin 2 GM/SWFI 2 GM/20 ML SYR IVP SCH ×2 (05:58→14:54)
[2017-11-24] MEDS: LEVOTHYROXINE 25 MCG TAB PO SCH (05:59)
[2017-11-24 06:13] LABS: PLATELET COUNT 234 10^3/uL (150-400)
--- NOTE | 2017-11-24 08:34 | SOAPPROG ---
SOAP Progress Note Assessment/Plan: Assessment: 36 y/o M with a known h/o Type I DM, PNA and MSSA infection on multiple antibiotics who presents with edema and MELANIE. Etiology may be DM nephropathy with nephrotic syndrome vs ATN or AIN 2/2 to nafcillin, however, given hematuria and lung involvement cannot r/o RPGN such as vasculitis. 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 I will hold on empiric steroids given concern this is infectious mediated and known bacteremia. Minimal fibrosis < 10% and only 3 of 24 gloms globally sclerosed. -echo WNL per primary team -urine protein:cr 24h 15g -holding NSAIDs, avoid contrast -serologies neg thus far: C3, C4, MPO, PR3, AntiGBM, ASO. Awaiting KATHY -of note HIV, hep panel previously negative Hyperkalemia -mild,renal diet -follow lab trend -monitor on telemetry Multi-focal PNA with b/l effusions, MSSA bacteremia -reportedly had bronchoscopy at outside hospital -antibiotics per ID Volume overload- likely nephrotic proteinuria/MELANIE related -needs diuresis but holding diuretics today given rise in Cr- back off rate of diuresis -respiratory acidosis with metabolic compensation on O2 Anemia -s/p transfusion -most likely not related to chronic renal disease -GI consult -hct stable post biopsy- continue to monitor HIgh phos -start Ca acetate binder -renal diet I discussed with Dr. Florentino Banks MD [facility] [phone] 11/24/17 10:56 Subjective: Feels ok, eating breakfast when I came by. No sob, no hematuria ,no dizziness. Objective: Vital Signs Temp Pulse Resp BP Pulse Ox 36.4 C 99 18 134/89 H 94 11/24/17 08:00 11/24/17 08:00 11/24/17 08:00 11/24/17 08:00 11/24/17 08:00 Laboratory Results 11/24/17 06:00 11/24/17 06:00 11/23/17 11/24/17 11/25/17 05:59 05:59 05:59 Intake Total 475 130 Output Total 1925 1800 Balance -1450 -1670 PT 15.1 SEC (12.0-15.0) H 11/21/17 19:45 INR 1.17 (0.83-1.16) H 11/21/17 19:45 Physical Exam - Physical Exam General Appearance: alert, no apparent distress EENT: other (mmm) Neck: supple Respiratory: other (decreased bs bases bilat) Cardiac/Chest: regular rate, rhythm, other (no rub) Abdomen: non-tender, soft Extremities: other (+edema bilat LE) Neuro/Psych: alert, oriented x 3 ICD10 Worksheet Patient Problems: Problems Problem Status Onset Anemia Acute Hypoxia Acute Multifocal pneumonia Acute Pleural effusion Acute Pneumonia Acute Volume overload Acute
[2017-11-24] MEDS: NYSTATIN POWDER 15 GM BTL TP SCH ×2 (09:14→20:52)
[2017-11-24] MEDS: FUROSEMIDE 40 MG/4 ML VIAL IVP SCH (09:14)
[2017-11-24] MEDS: INSULIN GLARGINE 100 UNITS/ML UNIT SC SCH (09:14)
[2017-11-24] MEDS: SODIUM CL NASAL 45 ML BTL EACHNARE SCH ×2 (09:15→20:52)
[2017-11-24] MEDS: INSULIN LISPRO 100 UNIT/ML SC SCH ×3 (10:42→20:49)
[2017-11-24] MEDS: CALCIUM ACETATE 667 MG CAP PO SCH ×2 (14:54→19:40)
--- NOTE | 2017-11-24 16:30 | HOSPPROG ---
Hospitalist Progress Note Assessment/Plan: AHRF 2/ necrotizing PNA with early lung abscess and acute right heart failure with b/l pleural effusions. Echo showed RV pressure overload. S/P thoracentesis 11/18, Cx neg. CTA neg for PE. Also consider element of OHS. Requiring 6.5 LPM, up from 4 LPM. -Cont Cefazolin, ID following -repeat CT chest non-contrast MSSA bacteremia due to above - atbx stop date 12/16 Volume overload / anasarca - likely due to RHF (RVSP 57 on recent echo with moderate pulmonary hypertension). Has received aggressive Lasix regimen 80 IV BID. -hold Lasix this afternoon given rising Cr MELANIE - Cr on the rise, up to 2. ?hastened by diuresis. Consider diabetic nephropathy with associated nephrotic syndrome based on 24 hr urine protein of 15g. Preliminary path on renal biopsy suggestive of post-infectious GN. Discussed with renal, appreciate assistance. -avoid nsaids / nephrotoxic agents -further GN w/u per renal, KATHY pending -renal biopsy 11/22, f/u final path results -considering indication for steroids, defer to renal Hyperkalemia - in setting of MELANIE, stable ~5.1-5.3, stable / improved today -cont renal diet Anemia - Smear shows microcytosis and hypochromasia, suggestive of Fe deficiency. Fe studies c/w ACD. Unlikely due to CKD as he presented with normal Cr. -check hemoccult stool -likely warrants GI evaluation when acute issues stabilized Hypothyroidism - TSH 8.2, nl free T4, low T3 -started synthroid, recheck in 6-8 weeks Hematuria - mild, pink tinged urine, thought to be from traumatic dunn. Voiding independently now. Monitor. Type 1 DM - bg's 200's -increase lantus to 18 units SPCM - dietary consult, albumin up to 3.2 from 2 on arrival. -s/p several days of IV albumin DVT PPLX - defer pharm with low hgb requiring transfusion and hematuria, SCD's Full code Dispo - cont inpt Subjective: Pt feels ok. Denies CP, some SOB and orthopnea persists. No fevers. No pain. Eating well., Objective: Vital Signs Temp Pulse Resp BP Pulse Ox 36.5 C 94 18 148/88 H 96 11/24/17 16:00 11/24/17 16:00 11/24/17 16:00 11/24/17 16:00 11/24/17 16:00 Microbiology 11/22/17 15:20 Urine Culture - Final Urine,Clean Catch Two [place] Types Laboratory Results 11/24/17 06:00 11/24/17 06:00 11/23/17 11/24/17 11/25/17 05:59 05:59 05:59 Intake Total 475 130 200 Output Total 1925 1800 500 Balance -1450 -1670 -300 PT 15.1 SEC (12.0-15.0) H 11/21/17 19:45 INR 1.17 (0.83-1.16) H 11/21/17 19:45 - Physical Exam Constitutional: no apparent distress, obese Eyes: PERRL Ears, Nose, Mouth, Throat: moist mucous membranes Cardiovascular: regular rate and rhythym Respiratory: no respiratory distress, other (left sided crackles, reduced air movement on left) Gastrointestinal: normoactive bowel sounds, soft, non-tender abdomen Skin: warm Musculoskeletal: other (1+ LE edema, anasarca) Neurologic: AAOx3 Psychiatric: interacting appropriately ICD10 Worksheet Patient Problems: Problems Problem Status Onset Anemia Acute Hypoxia Acute Multifocal pneumonia Acute Pleural effusion Acute Pneumonia Acute Volume overload Acute
--- NOTE | 2017-11-24 17:33 | PCMIDPN ---
Assessment/Plan: Assessment: MSSA pneumonia. With left-sided necrotizing transformation and early abscess formation. Patient is on IV cefazolin. Nephrology notes reviewed. The early path results look like glomerular pathology and not interstitial pathology. Given that we will continue the beta lactam therapy. Plan: 1. Continue IV cefazolin. 2. Follow up on creatinine levels. 3. Follow up on final pathology report from kidney biopsy. 11/24/17 17:31 Subjective: Patient is resting in his hospital bed. He is on 5 L of oxygen. Denies any fevers but reports occasional chills. Urinating well. Slightly constipated. Appetite is intact. No rash. Objective: Cefazolin #11 Vital Signs Temp Pulse Resp BP Pulse Ox 36.5 C 94 18 148/88 H 96 11/24/17 16:00 11/24/17 16:00 11/24/17 16:00 11/24/17 16:00 11/24/17 16:00 Microbiology 11/22/17 15:20 Urine Culture - Final Urine,Clean Catch Two [place] Types Laboratory Results 11/24/17 06:00 11/24/17 06:00 11/23/17 11/24/17 11/25/17 05:59 05:59 05:59 Intake Total 475 130 200 Output Total 1925 1800 500 Balance -1450 -1670 -300 - Physical Exam General Appearance: WD/WN, alert, no apparent distress, non-toxic Respiratory: lungs clear, normal breath sounds, No respiratory distress Cardiac/Chest: regular rate, rhythm, No tachycardia Skin: normal color, warm/dry, No rash Neuro/Psych: alert, normal mood/affect, oriented x 3 ICD10 Worksheet Patient Problems: Problems Problem Status Onset Anemia Acute Hypoxia Acute Multifocal pneumonia Acute Pleural effusion Acute Pneumonia Acute Volume overload Acute
[2017-11-24] MEDS: traZODone 50 MG TAB PO SCH (20:52)
[2017-11-24] MEDS: ceFAZolin 2 GM/DEXTROSE 100 ML IV SCH (21:02)
[2017-11-24] MEDS: ACETAMINOPHEN 325 MG TAB PO PRN (23:28)
[2017-11-24] MEDS: oxyCODONE IR 5 MG TAB PO PRN (23:29)
[2017-11-25] MEDS: LEVOTHYROXINE 25 MCG TAB PO SCH (05:03)
[2017-11-25] MEDS: ceFAZolin 2 GM/DEXTROSE 100 ML IV SCH ×2 (05:03→20:52)
[2017-11-25] MEDS: ACETAMINOPHEN 325 MG TAB PO PRN ×2 (09:29→17:42)
[2017-11-25] MEDS: oxyCODONE IR 5 MG TAB PO PRN ×2 (09:29→17:42)
[2017-11-25] MEDS: CALCIUM ACETATE 667 MG CAP PO SCH ×3 (09:29→17:39)
[2017-11-25] MEDS: INSULIN LISPRO 100 UNIT/ML SC SCH ×3 (09:30→17:21)
[2017-11-25] MEDS: INSULIN GLARGINE 100 UNITS/ML UNIT SC SCH (09:30)
[2017-11-25] MEDS: NYSTATIN POWDER 15 GM BTL TP SCH ×2 (09:32→20:52)
[2017-11-25] MEDS: SODIUM CL NASAL 45 ML BTL EACHNARE SCH ×2 (09:32→20:53)
--- NOTE | 2017-11-25 10:32 | HOSPPROG ---
Hospitalist Progress Note Assessment/Plan: AHRF 2/ necrotizing PNA with early lung abscess and acute right heart failure with b/l pleural effusions. Echo showed RV pressure overload. S/P thoracentesis 11/18, Cx neg. CTA neg for PE. Also consider element of OHS. O2 requirement down to 2 LPM today from 6.5 LPM yesterday. Rpt chest CT yest pers reviewed and interp, shows some improvement in PNA process, b/l effusions persist -Cont Cefazolin, ID following -diurese as able, currently held due to rising Cr MSSA bacteremia due to above - atbx stop date 12/16 Volume overload / anasarca - likely due to RHF / nephrotic syndrome (RVSP 57 on recent echo with moderate pulmonary hypertension). Has received aggressive Lasix regimen 80 IV BID. -holding Lasix given rising Cr -will d/w diuresis plan with renal, may require dialysis MELANIE - Cr on the rise, up to 2.4. ?hastened by diuresis vs GN process. Also suspect underlying diabetic nephropathy with nephrotic syndrome based on 24 hr urine protein of 15g. Preliminary path on renal biopsy suggestive of post- infectious GN. Discussed with renal, appreciate assistance. -avoid nsaids / nephrotoxic agents -further GN w/u per renal, KATHY, complements pending -renal biopsy 11/22, f/u final path results -considering indication for steroids, defer to renal Hyperkalemia - in setting of MELANIE, stable ~5.1-5.3, stable / improved today -cont renal diet Anemia - Smear shows microcytosis and hypochromasia, suggestive of Fe deficiency. Fe studies c/w ACD. Unlikely due to CKD as he presented with normal Cr. -check hemoccult stool -likely warrants GI evaluation when acute issues stabilized Hypothyroidism - TSH 8.2, nl free T4, low T3 -started synthroid, recheck in 6-8 weeks Hematuria - mild, pink tinged urine, thought to be from traumatic dunn. Voiding independently now. Monitor. Type 1 DM - bg's back down to 100's with increase of lantus yesterday -cont basal / bolus insulin SPCM - dietary consult, albumin up to 3.2 from 2 on arrival. -s/p several days of IV albumin DVT PPLX - defer pharm with low hgb requiring transfusion and hematuria, SCD's Full code Dispo - cont inpt Subjective: Pt feels ok, still a bit orthopneic and swollen. Coughing less. Denies CP or SOB at rest. No fevers. Decreased uop. Objective: Vital Signs Temp Pulse Resp BP Pulse Ox 36.8 C 89 20 132/99 H 92 11/25/17 08:00 11/25/17 08:00 11/25/17 08:00 11/25/17 08:00 11/25/17 09:34 Microbiology 11/22/17 15:20 Urine Culture - Final Urine,Clean Catch Two [place] Types Laboratory Results 11/25/17 04:56 11/25/17 04:56 11/24/17 11/25/17 11/26/17 05:59 05:59 05:59 Intake Total 130 750 Output Total 1800 500 300 Balance -1670 250 -300 PT 15.1 SEC (12.0-15.0) H 11/21/17 19:45 INR 1.17 (0.83-1.16) H 11/21/17 19:45 ICD10 Worksheet Patient Problems: Problems Problem Status Onset Anemia Acute Hypoxia Acute Multifocal pneumonia Acute Pleural effusion Acute Pneumonia Acute Volume overload Acute
--- NOTE | 2017-11-25 11:42 | SOAPPROG ---
SOAP Progress Note Assessment/Plan: Assessment: 1. MELANIE Pt's urine output is down, and his Cr is rising. K is ok. (on renal diet). His biopsy showed a likely coinfectious picture. He has very high grade proteinuria. KATHY is pending, but complements look ok. Treatment will be directed at infection (MSSA), and supportive care. I do not see other insults around the time course of the rise of his Cr that correlate with a toxic and ischemic cause. Will image renal veins, give additional dose of diuretic. If he doesn't respond , he is likely going to need interim dialysis. 2. MSSA pneumonia ID treating. Plan: 11/25/17 11:30 Subjective: C/O edema Objective: Vital Signs Temp Pulse Resp BP Pulse Ox 36.8 C 89 20 132/99 H 92 11/25/17 08:00 11/25/17 08:00 11/25/17 08:00 11/25/17 08:00 11/25/17 09:34 Microbiology 11/22/17 15:20 Urine Culture - Final Urine,Clean Catch Two [place] Types Laboratory Results 11/25/17 04:56 11/25/17 04:56 11/24/17 11/25/17 11/26/17 05:59 05:59 05:59 Intake Total 130 750 Output Total 1800 500 300 Balance -1670 250 -300 PT 15.1 SEC (12.0-15.0) H 11/21/17 19:45 INR 1.17 (0.83-1.16) H 11/21/17 19:45 Physical Exam - Physical Exam General Appearance: no apparent distress Respiratory: decreased breath sounds Cardiac/Chest: regular rate, rhythm Extremities: pedal edema Neuro/Psych: oriented x 3 ICD10 Worksheet Patient Problems: Problems Problem Status Onset Anemia Acute Hypoxia Acute Multifocal pneumonia Acute Pleural effusion Acute Pneumonia Acute Volume overload Acute
[2017-11-25] MEDS ORDERED: FUROSEMIDE 100 MG/10 ML VIAL IVP ONE (11:47)
--- NOTE | 2017-11-25 12:20 | ASMTCMCOM ---
CM Note CM Note Notes: CM spoke w/ GISELL Haley regarding d/c POC. The plan remains for pt to d/c to [facility] when medically stable. Updates sent to [facility]. CM to follow. Plan: [facility] Date Signed: 11/25/2017 12:19 PM Electronically Signed By:AUBREE Allen
[2017-11-25] MEDS ORDERED: FUROSEMIDE 40 MG/4 ML VIAL IVP ONE (12:30)
--- NOTE | 2017-11-25 16:32 | PCMIDPN ---
Assessment/Plan: Assessment/Plan: * MSSA bacteremia with necrotizing pneumonia: Continue cefazolin. CT of chest yesterday shows persistent dense consolidation in left lung field. 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 Not felt to be related to AIN. Will therefore continue cefazolin directed at treating infection. * Chest pain: Position of PICC line reviewed with Radiology and appears to be in good position. May be related to ongoing inflammatory change from pleural inflammation. If persists, consider pulling back 2-3 cm to see if modifies his pain. 11/25/17 16:29 11/25/17 16:31 Subjective: Patient complains of pain radiating from the right side of his chest to the left side of his chest. He is complain related to his PICC line. Objective: Vital Signs Temp Pulse Resp BP Pulse Ox 36.3 C 86 20 129/93 H 97 11/25/17 16:00 11/25/17 16:00 11/25/17 16:00 11/25/17 16:00 11/25/17 16:00 Microbiology 11/22/17 15:20 Urine Culture - Final Urine,Clean Catch Two [place] Types Laboratory Results 11/25/17 04:56 11/25/17 14:40 11/24/17 11/25/17 11/26/17 05:59 05:59 05:59 Intake Total 130 750 Output Total 1800 500 600 Balance -1670 250 -600 Cefazolin # 12 Preliminary pathology consistent with post infectious GN - Physical Exam General Appearance: alert, no apparent distress EENT: No scleral icterus, No thrush Respiratory: crackles (Scattered through left lung field), No respiratory distress Cardiac/Chest: regular rate, rhythm Abdomen: non-tender, No distended Skin: No rash - Line/s RUE PICC Lines: No drainage, No erythema ICD10 Worksheet Patient Problems: Problems Problem Status Onset Anemia Acute Hypoxia Acute Multifocal pneumonia Acute Pleural effusion Acute Pneumonia Acute Volume overload Acute
[2017-11-25] MEDS: traZODone 50 MG TAB PO SCH (20:52)
[2017-11-26 04:44] LABS: PLATELET COUNT 184 10^3/uL (150-400)
[2017-11-26] MEDS: LEVOTHYROXINE 25 MCG TAB PO SCH (04:55)
[2017-11-26] MEDS: oxyCODONE IR 5 MG TAB PO PRN ×3 (08:25→23:36)
[2017-11-26] MEDS: CALCIUM ACETATE 667 MG CAP PO SCH ×3 (08:25→17:54)
[2017-11-26] MEDS: ONDANSETRON 4 MG/2 ML VIAL IVP PRN (08:26)
[2017-11-26] MEDS: ceFAZolin 2 GM/DEXTROSE 100 ML IV SCH ×2 (08:34→20:01)
[2017-11-26] MEDS: INSULIN GLARGINE 100 UNITS/ML UNIT SC SCH (08:39)
[2017-11-26] MEDS: INSULIN LISPRO 100 UNIT/ML SC SCH ×3 (08:40→17:55)
[2017-11-26] MEDS: NYSTATIN POWDER 15 GM BTL TP SCH ×2 (08:56→20:01)
[2017-11-26] MEDS: SODIUM CL NASAL 45 ML BTL EACHNARE SCH ×2 (10:11→20:02)
[2017-11-26] MEDS ORDERED: FUROSEMIDE 40 MG/4 ML VIAL IVP ONE ×2 (10:52→11:00)
--- NOTE | 2017-11-26 10:56 | SOAPPROG ---
SOAP Progress Note Assessment/Plan: Assessment: 1. MELANIE UO better yesterday with diuretics. He still is quite overloaded. His biopsy showed a likely coinfectious picture. He has very high grade proteinuria. KATHY, C', and serologies normal. Treatment will be directed at infection (MSSA),. It appears that his acute Cr rise started around the . He may have been receiving NSAIDs around that time. I would expect his Cr to continue to rise, then plateau. In spite of his rising Cr, will continue to try to diurese. He is aware that he could require interim dialysis. 2. MSSA necrotizing pneumonia ID treating. Subjective: Uncomfortable with edema Objective: Vital Signs Temp Pulse Resp BP Pulse Ox 35.8 C L 100 20 109/82 H 97 11/26/17 07:35 11/26/17 07:35 11/26/17 07:35 11/26/17 07:35 11/26/17 07:35 Laboratory Results 11/26/17 04:35 11/26/17 04:35 11/25/17 11/26/17 11/27/17 05:59 05:59 05:59 Intake Total 750 250 Output Total 500 1350 Balance 250 -1100 PT 15.1 SEC (12.0-15.0) H 11/21/17 19:45 INR 1.17 (0.83-1.16) H 11/21/17 19:45 Physical Exam - Physical Exam General Appearance: alert Respiratory: lungs clear Cardiac/Chest: regular rate, rhythm Abdomen: soft Extremities: pedal edema Neuro/Psych: oriented x 3 ICD10 Worksheet Patient Problems: Problems Problem Status Onset Anemia Acute Hypoxia Acute Multifocal pneumonia Acute Pleural effusion Acute Pneumonia Acute Volume overload Acute
[2017-11-26] MEDS: POLYETHYLENE GLYCOL 3350 17 GM PKT PO PRN (11:13)
[2017-11-26] MEDS: METOLAZONE 2.5 MG TAB PO SCH (11:32)
--- NOTE | 2017-11-26 12:42 | HOSPPROG ---
Hospitalist Progress Note Assessment/Plan: AHRF 2/2 necrotizing PNA with early lung abscess and acute right heart failure with b/l pleural effusions. Echo showed RV pressure overload. S/P thoracentesis 11/18, Cx neg. CTA neg for PE. Also consider element of OHS and CORTEZ. O2 requirement 6-->[address] shows some improvement in PNA process, b/l effusions persist -Cont Cefazolin, ID following -diurese as able, see below -outpt sleep study indicated MSSA bacteremia due to above - atbx stop date 12/16 Volume overload / anasarca - likely due to RHF / nephrotic syndrome (RVSP 57 on recent echo with moderate pulmonary hypertension). Has received aggressive Lasix regimen 80 IV BID, difficult to diurese. -Cont Lasix / Metolazone today per renal despite rising Cr MELANIE - Cr on the rise, up to 2.4. ?hastened by diuresis vs GN process. Also suspect underlying diabetic nephropathy with nephrotic syndrome, 24 hr urine protein 15g. Preliminary path on renal biopsy suggestive of post-infectious GN. Discussed with renal, appreciate assistance. -avoid nsaids / nephrotoxic agents -further GN w/u per renal, KATHY, complements pending -renal biopsy 11/22, f/u final path results -may require dialysis due to ongoing need for diuresis -UOP improved today Hyperkalemia - in setting of MELANIE, stable ~5.1-5.3, stable / improved today -cont renal diet Anemia - Smear shows microcytosis and hypochromasia, suggestive of Fe deficiency. Fe studies c/w ACD. Unlikely due to CKD as he presented with normal Cr. Hemoccult stool negative. -likely warrants GI evaluation when acute issues stabilized Hypothyroidism - TSH 8.2, nl free T4, low T3 -started synthroid, recheck in 6-8 weeks Hematuria - mild, pink tinged urine, thought to be from traumatic dunn. Voiding independently now. Monitor. Type 1 DM - bg's back down to 100's with increase of lantus -cont basal / bolus insulin SPCM - dietary consult, albumin up to 3.2 from 2 on arrival. -s/p several days of IV albumin DVT PPLX - defer pharm with low hgb requiring transfusion and hematuria, SCD's Full code Dispo - cont inpt Subjective: Pt resting comfortably. Remains a bit orthopneic. No CP. Generalized swelling. Appetite good. Objective: Vital Signs Temp Pulse Resp BP Pulse Ox 37.4 C 92 17 134/99 H 92 11/26/17 12:00 11/26/17 12:00 11/26/17 12:00 11/26/17 12:00 11/26/17 12:00 Laboratory Results 11/26/17 04:35 11/26/17 04:35 11/25/17 11/26/17 11/27/17 05:59 05:59 05:59 Intake Total 750 250 Output Total 500 1350 Balance 250 -1100 PT 15.1 SEC (12.0-15.0) H 11/21/17 19:45 INR 1.17 (0.83-1.16) H 11/21/17 19:45 - Physical Exam Constitutional: obese Eyes: PERRL Ears, Nose, Mouth, Throat: moist mucous membranes Cardiovascular: regular rate and rhythym Respiratory: no respiratory distress, inspiratory crackles Gastrointestinal: normoactive bowel sounds, soft, non-tender abdomen Skin: warm Musculoskeletal: full muscle strength Neurologic: AAOx3 Psychiatric: interacting appropriately ICD10 Worksheet Patient Problems: Problems Problem Status Onset Anemia Acute Hypoxia Acute Multifocal pneumonia Acute Pleural effusion Acute Pneumonia Acute Volume overload Acute
--- NOTE | 2017-11-26 15:03 | PCMIDPN ---
Assessment/Plan: # MSSA bacteremia and necrotizing left-sided PNA with early lung abscess. Lung function stable to improved with less o2 requirements --stop date antibiotics is 12/16 --AIN not playing role in renal problems, continue renal dosed ancef. # Renal insufficiency, nephrotic syndrome post infectious GN and possible superimposed ATN. CrCl<50, nephrology decreased dose ancef to q12h appropriately. # Rash to nafcillin: resolved, mom also reports rash to PCN in childhood requiring Benadryl Microbiology HIV testing and QuantiFERON negative at outside hospital 11/10 blood cultures (2) neg 11/10 sputum culture: Bridgett 11/18 pleural fluid : NGeg medication cefazolin 2gm IV q12h, #13 Subjective: #24 up since admit feeling frustrated about all medical issues Objective: Vital Signs Temp Pulse Resp BP Pulse Ox 37.4 C 92 17 134/99 H 92 11/26/17 12:00 11/26/17 12:00 11/26/17 12:00 11/26/17 12:00 11/26/17 12:00 Laboratory Results 11/26/17 04:35 11/26/17 04:35 11/25/17 11/26/17 11/27/17 05:59 05:59 05:59 Intake Total 750 250 600 Output Total 500 1350 250 Balance 250 -1100 350 - Physical Exam General Appearance: alert, no apparent distress, obese EENT: pale conjunctiva Respiratory: other (decreased bs L base), No accessory muscle use, No wheezing Cardiac/Chest: regular rate, rhythm Extremities: other (anasarca) Skin: pallor, No rash Neuro/Psych: alert, normal mood/affect, oriented x 3, depressed affect - Line/s RUE PICC Lines: No drainage, No erythema - Time Spent With Patient Time Spent with Patient: greater than 35 minutes (care reviewed with Dr Wolff, reviewed case and course of illness with mom over phone) Time Spent with Patient: Greater than 35 minutes spent on this patients care, greater than 50% of time spent counseling, educating, and coordinating care regarding the above mentioned plan. ICD10 Worksheet Patient Problems: Problems Problem Status Onset Anemia Acute Hypoxia Acute Multifocal pneumonia Acute Pleural effusion Acute Pneumonia Acute Volume overload Acute
[2017-11-26] MEDS: traZODone 50 MG TAB PO SCH (20:01)
[2017-11-27] MEDS: oxyCODONE IR 5 MG TAB PO PRN ×4 (04:34→20:16)
[2017-11-27] MEDS: LACTULOSE 20 GM/30 ML UDCUP PO PRN ×2 (04:35→09:08)
[2017-11-27] MEDS: LEVOTHYROXINE 25 MCG TAB PO SCH (04:35)
[2017-11-27 04:55] LABS: PLATELET COUNT 185 10^3/uL (150-400)
[2017-11-27] MEDS: INSULIN GLARGINE 100 UNITS/ML UNIT SC SCH (08:58)
[2017-11-27] MEDS: METOLAZONE 2.5 MG TAB PO SCH (09:06)
[2017-11-27] MEDS: CALCIUM ACETATE 667 MG CAP PO SCH ×3 (09:07→18:01)
[2017-11-27] MEDS: ceFAZolin 2 GM/DEXTROSE 100 ML IV SCH (09:08)
[2017-11-27] MEDS: ONDANSETRON 4 MG/2 ML VIAL IVP PRN (09:08)
[2017-11-27] MEDS: INSULIN LISPRO 100 UNIT/ML SC SCH ×3 (09:09→18:02)
[2017-11-27] MEDS: NYSTATIN POWDER 15 GM BTL TP SCH ×2 (09:10→20:11)
[2017-11-27] MEDS: SODIUM CL NASAL 45 ML BTL EACHNARE SCH ×3 (09:10→20:14)
[2017-11-27] MEDS ORDERED: HEPARIN 50,000 UNIT/10 ML VIAL ONE (12:20)
--- NOTE | 2017-11-27 14:45 | SOAPPROG ---
SOAP Progress Note Assessment/Plan: Assessment: 1. MELANIE. 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 Rx geared toward treatment of infection. With extensive PNA would not add steroids. Azotemia worse, no improvement in edema despite high dose diuretics. Will initiate hemodialysis. Pt and mother in agreement. Still has good prognosis for recovery of renal function although doubt will get back to prior baseline. May take days or weeks. 2. Anasarca. UF on dialysis. 1st HD today, next tomorrow. 3. MSSA PNA with abscess. Continue ancef, per ID. 4. Hyperphosphatemia. Continue phoslo qac. Plan: 11/27/17 14:46 11/27/17 14:50 Subjective: C/o ongoing swelling in abdomen, thighs and scrotum. Does not feel that diuretics have helped. Is interested in getting fluid off by any means possible. Objective: Vital Signs Temp Pulse Resp BP Pulse Ox 36.5 C 92 18 134/93 H 92 11/27/17 12:00 11/27/17 12:00 11/27/17 12:00 11/27/17 12:00 11/27/17 12:00 Laboratory Results 11/27/17 04:40 11/27/17 04:40 11/26/17 11/27/17 11/28/17 05:59 05:59 05:59 Intake Total 250 850 240 Output Total 1350 1550 400 Balance -1100 -700 -160 PT 15.1 SEC (12.0-15.0) H 11/21/17 19:45 INR 1.17 (0.83-1.16) H 11/21/17 19:45 comfortable young wm in bed, NAD RRR, no m/g/r CTAB Abdom soft, nontender; +pitting wall edema 3+ sacral pitting edema, minimal in ankles Chest CT reviewed ICD10 Worksheet Patient Problems: Problems Problem Status Onset Hypoxia Acute Pneumonia Acute Anemia Acute Volume overload Acute Multifocal pneumonia Acute Pleural effusion Acute
[2017-11-27] MEDS ORDERED: FUROSEMIDE 40 MG/4 ML VIAL IVP ONE ×2 (15:00→18:00)
[2017-11-27] MEDS ORDERED: LIDOCAINE 1% 300 MG/30 ML SDV ONE (15:19)
[2017-11-27 15:20] LABS: HEPATITIS B SURFACE ANTIGEN NEGATIVE (NEGATIVE)
[2017-11-27 15:37] LABS: HEPATITIS B CORE AB TOTAL NEGATIVE (NEGATIVE)
--- NOTE | 2017-11-27 17:39 | HOSPPROG ---
Hospitalist Progress Note Assessment/Plan: Assessment: 36-year-old male presents with acute hypoxic respiratory failure in the setting of MSSA pneumonia as well as acute diastolic congestive heart failure exacerbation, c/b likely pulmonary abscess and nephrotic syndrome w/ glomerularnephritis Plan: #MSSA bacteremia/multifocal PNA and likely pulmonary abscess: chest CT w/ cystic /abscess appearance AILEEN - cont Ancef and attempting Abx mgmt as opposed to surgical at this time - duration under guidance from ID #Acute diastolic CHF exacerbation: Symptomatic, hypervolemic on exam, suspect 2/ 2 IVF at OSH + Nafcillin fluid load + nephrotic syndrome - vol removal w/ HD, diuretics #Hematuria: acute, likely combination of glomerularnephritis + dunn trauma #Pleural effusion: Acute bilat, R>L, can consider therapeutic tap if symptomatically worsening #Acute hypoxic resp failure: Evidenced by SpO2 82% on room air, requiring up to 5LPM for objective tachypnea and shortness of breath, due to PNA, CHF, effusions. - ongoing Lasix - cont wean O2 #Drug-reaction: due to nafcillin, changed to Vancomycin, then adjusted to Ancef w/o recurrent rash #Uncontrolled Type 1 DM: hyperglycemic here. Lantus 20 units here (Levimer at home), SSI to regular #Hyperkalemia: no peaked T-waves #Hyponatremia: Acute, likely 2/2 poor renal perfusion in setting of CHF, improving w/ diuresis and increased CO #Severe protein caloric malnutrition: pre-alb 8.5. Nutrition consult # Acute Renal Failure. Nephrotic syndrome w/ rapidly progressive glomerularnephritis w/ resultant anasarca - d/w Dr. Payne, he reports need for HD given uremia w/ elevated BUN and ineffective diuresis w/ lasix/metolazone - slides demonstrating IgA deposits, crescents - avoiding NSAIDs - net positive 12kg LOS # Hypothyroidism. Chronic, TSH 8.2, nl free T4, low T3 - started synthroid, recheck in 6-8 weeks #Diet: DM #DVT ppx: Lovenox 40 #Code: Full #Disp: warrants inpatient admission for HD, anasarca High-level medical complexity, high risk of worsening morbidity and/or mortality secondary to the issues as outlined above. Subjective: Patient lethargic today, denies pain Objective: Vital Signs Temp Pulse Resp BP Pulse Ox 36.5 C 92 18 134/93 H 92 11/27/17 12:00 11/27/17 12:00 11/27/17 12:00 11/27/17 12:00 11/27/17 12:00 Laboratory Results 11/27/17 04:40 11/27/17 04:40 11/26/17 11/27/17 11/28/17 05:59 05:59 05:59 Intake Total 250 850 240 Output Total 1350 1550 400 Balance -1100 -700 -160 PT 15.1 SEC (12.0-15.0) H 11/21/17 19:45 INR 1.17 (0.83-1.16) H 11/21/17 19:45 - Physical Exam Constitutional: no apparent distress, not in pain, chronically ill appearing, No uncomfortable Cardiovascular: systolic murmur (1/6 at all valve locations), edema (Diffuse anasarca), No irregularly irregular, No tachycardia Respiratory: reduced air movement (Bilateral bases), No expiratory wheeze, No inspiratory crackles, No bronchial breath sounds Gastrointestinal: normoactive bowel sounds, soft, non-tender abdomen, no palpable masses Skin: other (Doughy, fluid filled) Neurologic: AAOx3, No facial droop Psychiatric: not anxious, not encephalopathic, flat affect, other (Lethargic but arousable), No agitated ICD10 Worksheet Patient Problems: Problems Problem Status Onset Hypoxia Acute Pneumonia Acute Anemia Acute Volume overload Acute Multifocal pneumonia Acute Pleural effusion Acute
[2017-11-27] MEDS: traZODone 50 MG TAB PO SCH (20:10)
[2017-11-27] MEDS ORDERED: ceFAZolin 2 GM/DEXTROSE 100 ML IV ONE (21:00)
[2017-11-28] MEDS: oxyCODONE IR 5 MG TAB PO PRN ×3 (00:44→21:18)
[2017-11-28] MEDS: ACETAMINOPHEN 325 MG TAB PO PRN ×2 (00:46→21:17)
[2017-11-28] MEDS: LEVOTHYROXINE 25 MCG TAB PO SCH (05:44)
[2017-11-28] MEDS ORDERED: ALTEPLASE 2 MG VIAL IVP PRN (05:57)
[2017-11-28 09:24] LABS: PLATELET COUNT 149 10^3/uL (150-400)
[2017-11-28] MEDS: INSULIN LISPRO 100 UNIT/ML SC SCH ×3 (10:03→19:11)
[2017-11-28] MEDS: SODIUM CL NASAL 45 ML BTL EACHNARE SCH ×2 (10:21→21:07)
[2017-11-28] MEDS: METOLAZONE 2.5 MG TAB PO SCH (10:21)
[2017-11-28] MEDS: NYSTATIN POWDER 15 GM BTL TP SCH ×3 (10:21→21:08)
[2017-11-28] MEDS: CALCIUM ACETATE 667 MG CAP PO SCH ×3 (11:06→21:07)
[2017-11-28] MEDS: INSULIN GLARGINE 100 UNITS/ML UNIT SC SCH ×2 (11:50→12:48)
[2017-11-28] MEDS: LIDOCAINE 5% 1 EA PATCH TD SCH (11:51)
--- NOTE | 2017-11-28 13:21 | ASMTCMCOM ---
CM Note CM Note Notes: Patient has high-level medical complexity with a high risk of worsening morbidity and/or mortality. [facility] remains the d/c plan when patient has medically cleared. CM will follow. Date Signed: 11/28/2017 01:20 PM Electronically Signed By:Verenice Pratt LCSW
--- NOTE | 2017-11-28 15:44 | SOAPPROG ---
SOAP Progress Note Assessment/Plan: Assessment: 1. MELANIE. 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 Also with ATN. Rx geared toward treatment of infection. With extensive PNA would not add steroids. Started dialysis yesterday for azotemia, K and volume. Still has good prognosis for recovery of renal function although doubt will get back to prior baseline. May take days or weeks. 2. Anasarca. UF on dialysis. 2nd HD this afternoon. 3. MSSA PNA with abscess. Continue ancef, per ID. 4. Hyperphosphatemia. Continue phoslo qac. 5. Pleuritic chest pain. D/t pleural effusion on R? Plan: 11/27/17 14:46 11/27/17 14:50 11/28/17 15:49 Subjective: Had HD cath and first dialysis yesterday. Only 1 L removed. No problems with HD. No fevers, chills. C/o pain with breathing over R inferior ribs. Has lidocaine patch. Objective: Vital Signs Temp Pulse Resp BP Pulse Ox 36.7 C 95 20 138/83 H 93 11/28/17 12:00 11/28/17 12:00 11/28/17 12:00 11/28/17 12:00 11/28/17 12:00 Laboratory Results 11/28/17 08:35 11/28/17 08:35 11/27/17 11/28/17 11/29/17 05:59 05:59 05:59 Intake Total 850 690 Output Total 1550 900 200 Balance -700 -210 -200 PT 15.1 SEC (12.0-15.0) H 11/21/17 19:45 INR 1.17 (0.83-1.16) H 11/21/17 19:45 Lying in bed, sleepy but oriented RRR, no m/g/r CTAB Abdom soft, nontender 4+ sacral and abdominal wall pitting edema ICD10 Worksheet Patient Problems: Problems Problem Status Onset Hypoxia Acute Pneumonia Acute Anemia Acute Volume overload Acute Multifocal pneumonia Acute Pleural effusion Acute
--- NOTE | 2017-11-28 16:24 | HOSPPROG ---
Hospitalist Progress Note Assessment/Plan: Assessment: 36-year-old male presents with acute hypoxic respiratory failure in the setting of MSSA pneumonia as well as acute diastolic congestive heart failure exacerbation, c/b likely pulmonary abscess and nephrotic syndrome w/ glomerularnephritis Plan: #MSSA bacteremia/multifocal PNA and likely pulmonary abscess: chest CT w/ cystic /abscess appearance AILEEN - cont Ancef and attempting Abx mgmt as opposed to surgical at this time - duration under guidance from ID #Acute diastolic CHF exacerbation: Symptomatic, hypervolemic on exam, suspect 2/ 2 IVF at OSH + Nafcillin fluid load + nephrotic syndrome - vol removal w/ HD #Hematuria: acute, likely combination of glomerularnephritis + dunn trauma #Pleural effusion: Acute bilat, R>L, can consider therapeutic tap if symptomatically worsening - likely resulting in R side chest pain, recommend lidoderm patch/heat pad PRN #Acute hypoxic resp failure: Evidenced by SpO2 82% on room air, requiring up to 5LPM for objective tachypnea and shortness of breath, due to PNA, CHF, effusions. - ongoing vol removal - cont wean O2 #Drug-reaction: due to nafcillin, changed to Vancomycin, then adjusted to Ancef w/o recurrent rash #Uncontrolled Type 1 DM: hyperglycemic here. Reduced lantus 10 units here ( Levimer at home), SSI to regular - counseled patient and mother extensively that insulin pump could be a viable possibility for him once anasarca improved, but patient will need to establish with an outpat Cigarette Filter Inspector to make further arrangements as we do not start new insulin pumps as an inpatient #Hyperkalemia: no peaked T-waves #Hyponatremia: Acute, likely 2/2 poor renal perfusion in setting of CHF, improving w/ diuresis and increased CO #Severe protein caloric malnutrition: pre-alb 8.5. Nutrition consult # Acute Renal Failure. Nephrotic syndrome w/ rapidly progressive glomerularnephritis w/ resultant anasarca - slides demonstrating IgA and C3 deposits, crescents - avoiding NSAIDs - net neg 0.6kg o/n w/ HD - repeat HD today - counseled patient/mother that uremia will improve w/ HD # Hypothyroidism. Chronic, TSH 8.2, nl free T4, low T3 - started synthroid, recheck in 6-8 weeks #Diet: DM #DVT ppx: Lovenox 40 #Code: Full #Disp: warrants inpatient admission for HD, anasarca Subjective: patient feeling less lethargic than yesterday, but remains fatigued Objective: Vital Signs Temp Pulse Resp BP Pulse Ox 36.7 C 95 20 138/83 H 93 11/28/17 12:00 11/28/17 12:00 11/28/17 12:00 11/28/17 12:00 11/28/17 12:00 Laboratory Results 11/28/17 08:35 11/28/17 08:35 11/27/17 11/28/17 11/29/17 05:59 05:59 05:59 Intake Total 850 690 Output Total 1550 900 200 Balance -700 -210 -200 PT 15.1 SEC (12.0-15.0) H 11/21/17 19:45 INR 1.17 (0.83-1.16) H 11/21/17 19:45 - Time Spent With Patient Time Spent with Patient: greater than 35 minutes Time Spent with Patient: Greater than 35 minutes spent on this patients care, greater than 50% of time spent counseling, educating, and coordinating care regarding the above mentioned plan. - Physical Exam Constitutional: no apparent distress, not in pain, chronically ill appearing, No uncomfortable Cardiovascular: regular rate and rhythym, no murmur, rub, or gallop, edema ( diffuse) Respiratory: reduced air movement (bilat bases, almost absent on left chest, clear in R anterior chest) Gastrointestinal: normoactive bowel sounds, soft, non-tender abdomen, no palpable masses, No distension Skin: other (soft tissue edema w/o lesions over Right chest) Neurologic: AAOx3 Psychiatric: not anxious, flat affect, other (lethargic but arousable), No agitated ICD10 Worksheet Patient Problems: Problems Problem Status Onset Hypoxia Acute Pneumonia Acute Anemia Acute Volume overload Acute Multifocal pneumonia Acute Pleural effusion Acute
[2017-11-28] MEDS: METOLAZONE 5 MG TAB PO SCH (17:43)
[2017-11-28] MEDS: FUROSEMIDE 40 MG/4 ML VIAL IVP SCH (17:44)
[2017-11-28] MEDS ORDERED: HEPARIN 50,000 UNIT/10 ML VIAL ONE (18:31)
[2017-11-28] MEDS ORDERED: ceFAZolin 2 GM/SWFI 2 GM/20 ML SYR IVP SCH (20:45)
[2017-11-28] MEDS: traZODone 50 MG TAB PO SCH (21:07)
[2017-11-28] MEDS: ceFAZolin 2 GM/DEXTROSE 100 ML IV SCH (21:08)
[2017-11-29] MEDS: POLYETHYLENE GLYCOL 3350 17 GM PKT PO PRN ×2 (00:07→17:37)
[2017-11-29] MEDS: PATCH REMOVAL 1 EA PATCH TD SCH ×2 (00:12→23:18)
[2017-11-29 05:58] LABS: PLATELET COUNT 139 10^3/uL (150-400)
[2017-11-29] MEDS: LEVOTHYROXINE 25 MCG TAB PO SCH (06:22)
[2017-11-29] MEDS: NYSTATIN POWDER 15 GM BTL TP SCH ×2 (07:52→23:17)
[2017-11-29] MEDS: SODIUM CL NASAL 45 ML BTL EACHNARE SCH ×2 (07:54→23:17)
[2017-11-29] MEDS: LIDOCAINE 5% 1 EA PATCH TD SCH (08:04)
[2017-11-29] MEDS: INSULIN LISPRO 100 UNIT/ML SC SCH ×3 (11:46→17:37)
[2017-11-29] MEDS: ceFAZolin 2 GM/DEXTROSE 100 ML IV SCH ×2 (11:47→23:15)
--- NOTE | 2017-11-29 12:41 | SOAPPROG ---
SOAP Progress Note Assessment/Plan: Assessment: 1. MELANIE Pt has a staph associated GN, in the face of underlying diabetic nephropathy. His GN is severe, and necrotizing with crescents. Immunosuppressants are not indicated. At this point, his UO is borderline. We are dialyzing daily related to volume. Based on the literature, patients with this GN superimposed on DN have risk of not recovering renal function. Will continue diuretics for now. 2. MSSA necrotizing pneumonia ID treating. Reviewed ancef dosing. 3. Anemia Stable. 11/29/17 12:41 11/29/17 12:44 Subjective: Seen on dialysis Objective: Vital Signs Temp Pulse Resp BP Pulse Ox 36.5 C 84 18 139/98 H 97 11/29/17 07:39 11/29/17 07:39 11/29/17 07:39 11/29/17 07:39 11/29/17 07:39 Laboratory Results 11/29/17 05:50 11/29/17 05:50 11/28/17 11/29/17 11/30/17 05:59 05:59 05:59 Intake Total 690 360 Output Total 900 750 Balance -210 -390 PT 15.1 SEC (12.0-15.0) H 11/21/17 19:45 INR 1.17 (0.83-1.16) H 11/21/17 19:45 Physical Exam - Physical Exam General Appearance: no apparent distress Neck: other (Dialysis catheter site ok) Respiratory: lungs clear (anteriorly (auscultated on dialysis)) Cardiac/Chest: regular rate, rhythm Extremities: pedal edema Neuro/Psych: oriented x 3 ICD10 Worksheet Patient Problems: Problems Problem Status Onset Anemia Acute Hypoxia Acute Multifocal pneumonia Acute Pleural effusion Acute Pneumonia Acute Volume overload Acute
[2017-11-29] MEDS ORDERED: HEPARIN 50,000 UNIT/10 ML VIAL IV ONE (13:27)
[2017-11-29] MEDS: CALCIUM ACETATE 667 MG CAP PO SCH ×3 (13:34→17:37)
[2017-11-29] MEDS: METOLAZONE 5 MG TAB PO SCH (13:46)
[2017-11-29] MEDS: INSULIN GLARGINE 100 UNITS/ML UNIT SC SCH (13:52)
[2017-11-29] MEDS: FUROSEMIDE 40 MG/4 ML VIAL IVP SCH (13:52)
--- NOTE | 2017-11-29 14:18 | PCMIDPN ---
Assessment/Plan: # MSSA bacteremia and necrotizing left-sided PNA with early lung abscess. Lung function stable to improved with less o2 requirements --stop date antibiotics is 12/16 # Renal insufficiency, nephrotic syndrome post infectious GN On HD now; decreased dose ancef to qD now after HD # Rash to nafcillin: resolved, mom also reports rash to PCN in childhood requiring Benadryl Microbiology HIV testing and QuantiFERON negative at outside hospital 11/10 blood cultures (2) neg 11/10 sputum culture: Bridgett 11/18 pleural fluid : NGeg medication cefazolin 2gm IV qd, #18 Subjective: patient still feeling discouraged, worried about constipation Objective: Vital Signs Temp Pulse Resp BP Pulse Ox 36.4 C 90 14 138/94 H 93 11/29/17 12:40 11/29/17 12:40 11/29/17 12:40 11/29/17 12:40 11/29/17 12:40 Laboratory Results 11/29/17 05:50 11/29/17 05:50 11/28/17 11/29/17 11/30/17 05:59 05:59 05:59 Intake Total 690 360 Output Total 900 750 Balance -210 -390 - Physical Exam General Appearance: alert, no apparent distress, obese EENT: pale conjunctiva Respiratory: crackles (L mid lung field anterior), No accessory muscle use Neck: supple Cardiac/Chest: regular rate, rhythm Abdomen: non-tender, soft, other Skin: pallor, No rash Neuro/Psych: alert, depressed affect - Line/s Smith Lines: other (R IJ location), No drainage, No erythema - Time Spent With Patient Time Spent with Patient: greater than 25 minutes (discussed abx dosing changes with patient) Time Spent with Patient: Greater than 25 minutes spent on this patients care, greater than 50% of time spent counseling, educating, and coordinating care regarding the above mentioned plan. ICD10 Worksheet Patient Problems: Problems Problem Status Onset Anemia Acute Hypoxia Acute Multifocal pneumonia Acute Pleural effusion Acute Pneumonia Acute Volume overload Acute
[2017-11-29] MEDS: ACETAMINOPHEN 325 MG TAB PO PRN ×2 (14:25→23:15)
[2017-11-29] MEDS: oxyCODONE IR 5 MG TAB PO PRN ×2 (14:25→23:16)
--- NOTE | 2017-11-29 16:55 | HOSPPROG ---
Hospitalist Progress Note Assessment/Plan: Assessment: 36-year-old male presents with acute hypoxic respiratory failure in the setting of MSSA pneumonia as well as acute diastolic congestive heart failure exacerbation, c/b likely pulmonary abscess and nephrotic syndrome w/ glomerularnephritis Plan: #MSSA bacteremia/multifocal PNA and likely pulmonary abscess: chest CT w/ cystic /abscess appearance AILEEN - cont Ancef and attempting Abx mgmt as opposed to surgical at this time - duration under guidance from ID, stop date 12/16 #Acute diastolic CHF exacerbation: Symptomatic, hypervolemic on exam, suspect 2/ 2 IVF at OSH + Nafcillin fluid load + nephrotic syndrome - vol removal w/ HD #Hematuria: acute, likely combination of glomerularnephritis + dunn trauma #Pleural effusion: Acute bilat, R>L, can consider therapeutic tap if symptomatically worsening - likely resulting in R side chest pain, cont to recommend lidoderm patch/heat pad PRN #Acute hypoxic resp failure: Evidenced by SpO2 82% on room air, requiring up to 5LPM for objective tachypnea and shortness of breath, due to PNA, CHF, effusions. - ongoing vol removal - cont wean O2 #Drug-reaction: due to nafcillin, changed to Vancomycin, then adjusted to Ancef w/o recurrent rash #Uncontrolled Type 1 DM: hyperglycemic here. Reduced lantus 10 units here ( Levimer at home), SSI to regular - counseled patient and mother that insulin pump should be arranged through outpt Endo, will refer #Hyperkalemia: no peaked T-waves #Hyponatremia: Acute, likely 2/2 poor renal perfusion in setting of CHF, improving w/ diuresis and increased CO #Severe protein caloric malnutrition: pre-alb 8.5. Nutrition consult # Acute Renal Failure. 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 Wolff, given his hx of likely underlying DM1 nephropathy, he is at risk of developing ESRD from this acute episode and requiring HD indefinitely - counseled patient/mother that he will likely require SNF care following discharge, case mgmt and I presented him with the options, one of the challenges is that he does not have the medical needs required for LTAC, so SNF will be his only level of care option and his mother will need to secure housing for them following the stay in order to get accepted # Hypothyroidism. Chronic, TSH 8.2, nl free T4, low T3 - started synthroid, recheck in 6-8 weeks #Diet: DM #DVT ppx: Lovenox 40 #Code: Full #Disp: warrants inpatient admission for HD, anasarca Subjective: less pain in chest Objective: Vital Signs Temp Pulse Resp BP Pulse Ox 36.6 C 92 18 136/89 H 96 11/29/17 16:00 11/29/17 16:00 11/29/17 16:00 11/29/17 16:00 11/29/17 16:00 Laboratory Results 11/29/17 05:50 11/29/17 05:50 11/28/17 11/29/17 11/30/17 05:59 05:59 05:59 Intake Total 690 360 Output Total 900 750 Balance -210 -390 PT 15.1 SEC (12.0-15.0) H 11/21/17 19:45 INR 1.17 (0.83-1.16) H 11/21/17 19:45 - Time Spent With Patient Time Spent with Patient: greater than 35 minutes Time Spent with Patient: Greater than 35 minutes spent on this patients care, greater than 50% of time spent counseling, educating, and coordinating care regarding the above mentioned plan. - Physical Exam Constitutional: not in pain, chronically ill appearing, No uncomfortable Cardiovascular: edema (diffuse), No tachycardia Respiratory: reduced air movement (left base), rhonchi (left mid post seg), No expiratory wheeze, No bronchial breath sounds, No respiratory distress Neurologic: AAOx3 Psychiatric: interacting appropriately, not anxious, not encephalopathic, thought process linear, other (more interactive than on day prior) ICD10 Worksheet Patient Problems: Problems Problem Status Onset Hypoxia Acute Pneumonia Acute Anemia Acute Volume overload Acute Multifocal pneumonia Acute Pleural effusion Acute
--- NOTE | 2017-11-29 17:36 | ASMTCMCOM ---
CM Note CM Note Notes: Spoke with patient and his mother to answer questions and review resources. So far, LTAC'S have turned patient down. There are some new issues with SNF placement we will have to work out with [facility]. There are questions as to whether [facility] can take patient if he needs dialysis as they do not get paid for taking patient to outpatient dialysis appointments. In addition, [facility] will want patient to have a plan in place for when he has completed the 30 day rehab program. Patient's mother Jodee states she is moving to [place] from [place] and plans to secure them an apartment. She however, is in the process of making these changes. She plans to apply for disability for [employer] and has a friend who can help her with the process. CM to talk more with [facility] to work out any barriers to placement. CM will follow. Date Signed: 11/29/2017 05:35 PM Electronically Signed By:Verenice Pratt LCSW
[2017-11-29] MEDS: traZODone 50 MG TAB PO SCH (23:16)
[2017-11-30] MEDS: LEVOTHYROXINE 25 MCG TAB PO SCH (06:00)
[2017-11-30 06:14] LABS: PLATELET COUNT 138 10^3/uL (150-400)
[2017-11-30] MEDS: INSULIN LISPRO 100 UNIT/ML SC SCH ×4 (11:26→18:32)
[2017-11-30] MEDS: FUROSEMIDE 40 MG/4 ML VIAL IVP SCH (12:11)
[2017-11-30] MEDS: INSULIN GLARGINE 100 UNITS/ML UNIT SC SCH (12:11)
[2017-11-30] MEDS: ACETAMINOPHEN 325 MG TAB PO PRN ×2 (12:12→20:31)
[2017-11-30] MEDS: METOLAZONE 5 MG TAB PO SCH (12:12)
[2017-11-30] MEDS: CALCIUM ACETATE 667 MG CAP PO SCH ×3 (12:12→18:32)
[2017-11-30] MEDS: oxyCODONE IR 5 MG TAB PO PRN ×2 (12:13→20:31)
[2017-11-30] MEDS: ONDANSETRON 4 MG/2 ML VIAL IVP PRN (12:13)
[2017-11-30] MEDS: NYSTATIN POWDER 15 GM BTL TP SCH ×2 (12:14→20:37)
[2017-11-30] MEDS: SODIUM CL NASAL 45 ML BTL EACHNARE SCH ×2 (12:14→20:48)
[2017-11-30] MEDS: LIDOCAINE 5% 1 EA PATCH TD SCH (12:22)
--- NOTE | 2017-11-30 16:12 | HOSPPROG ---
Hospitalist Progress Note Assessment/Plan: Assessment: 36-year-old male presents with acute hypoxic respiratory failure in the setting of MSSA pneumonia as well as acute diastolic congestive heart failure exacerbation, c/b likely pulmonary abscess and nephrotic syndrome w/ glomerularnephritis Plan: #MSSA bacteremia/multifocal PNA and likely pulmonary abscess: chest CT w/ cystic /abscess appearance AILEEN - cont Ancef and attempting Abx mgmt as opposed to surgical at this time - duration under guidance from ID, stop date 12/16 #Acute diastolic CHF exacerbation: Symptomatic, hypervolemic on exam, suspect 2/ 2 IVF at OSH + Nafcillin fluid load + nephrotic syndrome - vol removal w/ HD #Hematuria: acute, likely combination of glomerularnephritis + dunn trauma #Pleural effusion: Acute bilat, R>L, can consider therapeutic tap if symptomatically worsening - likely resulting in R side chest pain, cont to recommend lidoderm patch/heat pad PRN #Acute hypoxic resp failure: Evidenced by SpO2 82% on room air, requiring up to 5LPM for objective tachypnea and shortness of breath, due to PNA, CHF, effusions. - ongoing vol removal - cont wean O2, humidify given mild epistaxis #Drug-reaction: due to nafcillin, changed to Vancomycin, then adjusted to Ancef w/o recurrent rash #Uncontrolled Type 1 DM: hyperglycemic here. Reduced lantus 10 units here ( Levimer at home), SSI to regular - insulin pump should be arranged through outpt Endo, will refer #Hyperkalemia: no peaked T-waves #Hyponatremia: Acute, likely 2/2 poor renal perfusion in setting of CHF, improving w/ diuresis and increased CO #Severe protein caloric malnutrition: pre-alb 8.5. Nutrition consult # Acute Renal Failure. Nephrotic syndrome w/ rapidly progressive glomerularnephritis w/ resultant anasarca - slides demonstrating IgA and C3 deposits, crescents - avoiding NSAIDs - net neg 4.3kg w/ HD - repeat HD today - d/w patient his specific diagnoses as he begins to complete the paperwork for disability application # Hypothyroidism. Chronic, TSH 8.2, nl free T4, low T3 - started synthroid, recheck in 6-8 weeks #Diet: DM #DVT ppx: Lovenox 40 #Code: Full #Disp: warrants inpatient admission for HD, anasarca Subjective: patient w/ some ongoing R side/flank pain Objective: Vital Signs Temp Pulse Resp BP Pulse Ox 36.8 C 95 17 100/69 99 11/30/17 15:59 11/30/17 15:59 11/30/17 15:59 11/30/17 15:59 11/30/17 15:59 Laboratory Results 11/30/17 05:55 11/30/17 05:55 11/29/17 11/30/17 12/01/17 05:59 05:59 05:59 Intake Total 360 725 220 Output Total 750 740 200 Balance -390 -15 20 PT 15.1 SEC (12.0-15.0) H 11/21/17 19:45 INR 1.17 (0.83-1.16) H 11/21/17 19:45 - Physical Exam Constitutional: no apparent distress, chronically ill appearing, uncomfortable, No not in pain (mild) Cardiovascular: systolic murmur (I/ at sternum and apex), edema (diffuse anasarca), No irregularly irregular, No tachycardia Respiratory: reduced air movement, inspiratory crackles (bilat bases), No expiratory wheeze, No bronchial breath sounds, No respiratory distress Gastrointestinal: normoactive bowel sounds, soft, non-tender abdomen, no palpable masses, No distension Skin: other (soft tissue edema) Neurologic: AAOx3, No facial droop Psychiatric: interacting appropriately, not anxious, not encephalopathic, thought process linear ICD10 Worksheet Patient Problems: Problems Problem Status Onset Hypoxia Acute Pneumonia Acute Anemia Acute Volume overload Acute Multifocal pneumonia Acute Pleural effusion Acute
[2017-11-30] MEDS ORDERED: HEPARIN 50,000 UNIT/10 ML VIAL ONE (20:00)
[2017-11-30] MEDS: traZODone 50 MG TAB PO SCH (20:31)
[2017-11-30] MEDS: ceFAZolin 2 GM/DEXTROSE 100 ML IV SCH (20:32)
[2017-11-30] MEDS ORDERED: INSULIN LISPRO 100 UNIT/ML SC ONE (20:53)
[2017-12-01] MEDS: PATCH REMOVAL 1 EA PATCH TD SCH ×2 (01:13→22:47)
[2017-12-01] MEDS: LEVOTHYROXINE 25 MCG TAB PO SCH (04:58)
[2017-12-01 05:12] LABS: PLATELET COUNT 119 10^3/uL (150-400)
[2017-12-01] MEDS: NYSTATIN POWDER 15 GM BTL TP SCH ×2 (09:51→20:31)
[2017-12-01] MEDS: FUROSEMIDE 40 MG/4 ML VIAL IVP SCH (09:51)
[2017-12-01] MEDS: LIDOCAINE 5% 1 EA PATCH TD SCH (09:52)
[2017-12-01] MEDS: CALCIUM ACETATE 667 MG CAP PO SCH ×3 (09:52→17:53)
[2017-12-01] MEDS: INSULIN LISPRO 100 UNIT/ML SC SCH ×3 (09:52→17:54)
[2017-12-01] MEDS: INSULIN GLARGINE 100 UNITS/ML UNIT SC SCH (09:52)
[2017-12-01] MEDS: oxyCODONE IR 5 MG TAB PO PRN ×3 (09:52→20:18)
[2017-12-01] MEDS: METOLAZONE 5 MG TAB PO SCH (09:52)
[2017-12-01] MEDS: SODIUM CL NASAL 45 ML BTL EACHNARE SCH ×2 (09:53→22:47)
--- NOTE | 2017-12-01 11:07 | HOSPPROG ---
Hospitalist Progress Note Assessment/Plan: Assessment: 36-year-old male presents with acute hypoxic respiratory failure in the setting of MSSA pneumonia as well as acute diastolic congestive heart failure exacerbation, c/b likely pulmonary abscess and nephrotic syndrome w/ glomerularnephritis Plan: #MSSA bacteremia/multifocal PNA and likely pulmonary abscess: chest CT w/ cystic /abscess appearance AILEEN - cont Ancef and attempting Abx mgmt as opposed to surgical at this time - duration under guidance from ID, stop date 12/16 #Acute diastolic CHF exacerbation: Symptomatic, hypervolemic on exam, suspect 2/ 2 IVF at OSH + Nafcillin fluid load + nephrotic syndrome - vol removal w/ HD, net neg 0.5kg o/n # Acute Renal Failure. Nephrotic syndrome w/ rapidly progressive glomerularnephritis w/ resultant anasarca - slides demonstrating IgA and C3 deposits, crescents, suspect 2/2 MSSA - after d/w Dr. Wolff, we suspect that the patient has a high risk of being chronically dialysis dependent w/ ESRD from this episode and underlying DM1- nephropathy - counseled patient that we will do our best to complete his disability application if he is able to provider, would recommend the nephrology consulting service complete, as the indication for disability will be anticipated ESRD and he will be a long-term patient of the clinic - avoiding NSAIDs - holding HD today, UPO 600ml o/n #Hematuria: acute, likely combination of glomerularnephritis + dunn trauma #Pleural effusion: Acute bilat, R>L, can consider therapeutic tap if symptomatically worsening - likely resulting in R side chest pain, cont to recommend lidoderm patch/heat pad PRN/ice also recommended, as I suspect this chest pain is also from intercostal muscle strain, as he favors his R lung given extensive damage to his left #Acute hypoxic resp failure: Evidenced by SpO2 82% on room air, requiring up to 5LPM for objective tachypnea and shortness of breath, due to PNA, CHF, effusions. - ongoing vol removal - cont wean O2, humidify given mild epistaxis #Drug-reaction: due to nafcillin, changed to Vancomycin, then adjusted to Ancef w/o recurrent rash #Uncontrolled Type 1 DM: hyperglycemic here. Reduced lantus 10 units here ( Levimer at home), SSI to regular - insulin pump should be arranged through outpt Endo, will refer #Hyperkalemia: no peaked T-waves #Hyponatremia: Acute, likely 2/2 poor renal perfusion in setting of CHF, improving w/ diuresis and increased CO #Severe protein caloric malnutrition: pre-alb 8.5. Nutrition consult # Hypothyroidism. Chronic, TSH 8.2, nl free T4, low T3 - started synthroid, recheck in 6-8 weeks #Diet: DM #DVT ppx: Lovenox 40 #Code: Full #Disp: warrants inpatient admission for HD, anasarca Subjective: ongoing R rib pain, amb w/ walker, patient concerned about this disability application Objective: Vital Signs Temp Pulse Resp BP Pulse Ox 36.4 C 90 18 119/89 H 99 12/01/17 07:19 12/01/17 07:19 12/01/17 07:19 12/01/17 07:19 12/01/17 07:19 Laboratory Results 12/01/17 04:45 12/01/17 04:55 11/30/17 12/01/17 12/02/17 05:59 05:59 05:59 Intake Total 725 920 Output Total 740 600 100 Balance -15 320 -100 PT 15.1 SEC (12.0-15.0) H 11/21/17 19:45 INR 1.17 (0.83-1.16) H 11/21/17 19:45 - Time Spent With Patient Time Spent with Patient: greater than 35 minutes Time Spent with Patient: Greater than 35 minutes spent on this patients care, greater than 50% of time spent counseling, educating, and coordinating care regarding the above mentioned plan. - Physical Exam Constitutional: chronically ill appearing, uncomfortable Cardiovascular: regular rate and rhythym, no murmur, rub, or gallop, edema ( diffuse 2+), No irregularly irregular, No tachycardia Respiratory: reduced air movement (left base), rhonchi (left mid post segment), No expiratory wheeze, No bronchial breath sounds Gastrointestinal: normoactive bowel sounds, soft, non-tender abdomen, no palpable masses, No distension Skin: other (diffuse soft tissue edema) Neurologic: AAOx3 Psychiatric: not anxious, not encephalopathic, flat affect, No agitated ICD10 Worksheet Patient Problems: Problems Problem Status Onset Hypoxia Acute Pneumonia Acute Anemia Acute Volume overload Acute Multifocal pneumonia Acute Pleural effusion Acute
--- NOTE | 2017-12-01 11:45 | PCMIDPN ---
Assessment/Plan: # MSSA bacteremia and necrotizing left-sided PNA with early lung abscess. Lung function stable to improved with less o2 requirements --stop date antibiotics is 12/16 --get follow up CXR to assess status of PNA, may need repeat CT scan --adjust ancef to 1gm IV daily based on CrCl, alternate dose of 2gm IV after HD not appropriate with irregular HD schedule. Discussed with Dr. Wolff --add on LFTs --ID to see patient every couple days, call for questions # Renal insufficiency, nephrotic syndrome post infectious GN On HD now; abx dose adjustments as above # Rash to nafcillin: resolved, mom also reports rash to PCN in childhood requiring Benadryl Microbiology HIV testing and QuantiFERON negative at outside hospital 11/10 blood cultures (2) neg 11/10 sputum culture: Bridgett 11/18 pleural fluid : Neg medication cefazolin 2gm IV qd, #20 Subjective: patient feeling much better worried about oysterman issues related to HD Objective: Vital Signs Temp Pulse Resp BP Pulse Ox 36.4 C 90 18 119/89 H 99 12/01/17 07:19 12/01/17 07:19 12/01/17 07:19 12/01/17 07:19 12/01/17 07:19 Laboratory Results 12/01/17 04:45 12/01/17 04:55 11/30/17 12/01/17 12/02/17 05:59 05:59 05:59 Intake Total 725 920 Output Total 740 600 100 Balance -15 320 -100 - Physical Exam General Appearance: alert, no apparent distress Respiratory: crackles (L base), No accessory muscle use Cardiac/Chest: regular rate, rhythm Extremities: pedal edema Male Genitalia: No dunn Skin: pallor, No rash Neuro/Psych: no motor/sensory deficits (ambulatory with walker), alert, normal mood/affect, oriented x 3 - Time Spent With Patient Time Spent with Patient: greater than 35 minutes Time Spent with Patient: Greater than 35 minutes spent on this patients care, greater than 50% of time spent counseling, educating, and coordinating care regarding the above mentioned plan. ICD10 Worksheet Patient Problems: Problems Problem Status Onset Anemia Acute Hypoxia Acute Multifocal pneumonia Acute Pleural effusion Acute Pneumonia Acute Volume overload Acute
--- NOTE | 2017-12-01 11:45 | SOAPPROG ---
SOAP Progress Note Assessment/Plan: Assessment: 1. MELANIE Pt has a staph associated GN, in the face of underlying diabetic nephropathy. His GN is severe, and necrotizing with crescents. Immunosuppressants are not indicated. I believe he has a signficant chance of being ESRD, but a majority chance of recovering. At this point, he is considered to have MELANIE. We will dialyze tomorrow. He still needs additional volume removed. 2. MSSA necrotizing pneumonia ID treating. Reviewed ancef dosing. 3. Anemia Stable. 4. D/W case management. Multiple complicate issues relating to condition, rehab potential, housing, and dialysis. Subjective: Doing better Objective: Vital Signs Temp Pulse Resp BP Pulse Ox 36.4 C 90 18 119/89 H 99 12/01/17 07:19 12/01/17 07:19 12/01/17 07:19 12/01/17 07:19 12/01/17 07:19 Laboratory Results 12/01/17 04:45 12/01/17 04:55 11/30/17 12/01/17 12/02/17 05:59 05:59 05:59 Intake Total 725 920 Output Total 740 600 100 Balance -15 320 -100 PT 15.1 SEC (12.0-15.0) H 11/21/17 19:45 INR 1.17 (0.83-1.16) H 11/21/17 19:45 Physical Exam - Physical Exam General Appearance: no apparent distress Respiratory: lungs clear Cardiac/Chest: regular rate, rhythm Extremities: pedal edema Neuro/Psych: oriented x 3 ICD10 Worksheet Patient Problems: Problems Problem Status Onset Anemia Acute Hypoxia Acute Multifocal pneumonia Acute Pleural effusion Acute Pneumonia Acute Volume overload Acute
[2017-12-01] MEDS: POLYETHYLENE GLYCOL 3350 17 GM PKT PO PRN (12:21)
[2017-12-01] MEDS: ACETAMINOPHEN 325 MG TAB PO PRN ×2 (17:58→22:43)
[2017-12-01] MEDS: traZODone 50 MG TAB PO SCH (20:15)
[2017-12-02] MEDS: LEVOTHYROXINE 25 MCG TAB PO SCH (05:45)
[2017-12-02 06:01] LABS: PLATELET COUNT 118 10^3/uL (150-400)
--- NOTE | 2017-12-02 07:54 | SOAPPROG ---
SOAP Progress Note Assessment/Plan: Assessment: 36 y/o M with a known h/o Type I DM, PNA and MSSA infection on multiple antibiotics who presents with edema and MELANIE. Etiology may be DM nephropathy with nephrotic syndrome vs ATN or AIN 2/2 to nafcillin, however, given hematuria and lung involvement cannot r/o RPGN such as vasculitis. 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 Minimal fibrosis < 10% and only 3 of 24 gloms globally sclerosed. -urine protein:cr 24h 15g -serologies neg: C3, C4, MPO, PR3, AntiGBM, ASO, KATHY -of note HIV, hep panel previously negative -HD initiated- plan HD again today (likely MW schedule today) -I discussed with CM need to try and get outpt HD arrangements made as MELANIE pt and SNF- insurance may limit this Hyperkalemia -mild,renal diet -HD again today Multi-focal PNA with b/l effusions, MSSA bacteremia -reportedly had bronchoscopy at outside hospital -antibiotics per ID Anemia -s/p transfusion- consider repeat if Hb <7 -most likely not related to chronic renal disease -hct stable post biopsy HIgh phos -Continue Ca acetate binder, phos 5.5 -renal diet I discussed plan with Dr. Platt and case management Lisa Banks MD [facility] [phone] 12/02/17 09:27 Subjective: Feels ok, eating breakfast. Thinks HD has been helping. No n/v. LE edema improving. Discussed outpt HD unit placement. Objective: Vital Signs Temp Pulse Resp BP Pulse Ox 36.6 C 97 16 145/92 H 94 12/01/17 22:30 12/01/17 22:30 12/01/17 22:30 12/01/17 22:30 12/01/17 22:30 Laboratory Results 12/02/17 05:45 12/02/17 05:45 12/01/17 12/02/17 12/03/17 05:59 05:59 05:59 Intake Total 920 480 Output Total 600 500 Balance 320 -20 PT 15.1 SEC (12.0-15.0) H 11/21/17 19:45 INR 1.17 (0.83-1.16) H 11/21/17 19:45 Physical Exam - Physical Exam General Appearance: alert, no apparent distress EENT: other (mmm) Neck: supple, other (IJ TDC) Respiratory: lungs clear Cardiac/Chest: regular rate, rhythm, other (no rub) Abdomen: non-tender, soft Extremities: other (+edema bilat LE, compression stockings on) Neuro/Psych: alert, oriented x 3 ICD10 Worksheet Patient Problems: Problems Problem Status Onset Anemia Acute Hypoxia Acute Multifocal pneumonia Acute Pleural effusion Acute Pneumonia Acute Volume overload Acute
[2017-12-02] MEDS: CALCIUM ACETATE 667 MG CAP PO SCH ×3 (08:05→17:33)
[2017-12-02] MEDS: oxyCODONE IR 5 MG TAB PO PRN ×3 (08:05→23:25)
[2017-12-02] MEDS: INSULIN LISPRO 100 UNIT/ML SC SCH ×3 (08:05→17:32)
[2017-12-02] MEDS: ACETAMINOPHEN 325 MG TAB PO PRN ×3 (08:11→23:26)
[2017-12-02] MEDS: LIDOCAINE 5% 1 EA PATCH TD SCH (08:12)
[2017-12-02] MEDS: FUROSEMIDE 40 MG/4 ML VIAL IVP SCH (09:28)
[2017-12-02] MEDS: INSULIN GLARGINE 100 UNITS/ML UNIT SC SCH (09:28)
[2017-12-02] MEDS: METOLAZONE 5 MG TAB PO SCH (09:28)
[2017-12-02] MEDS: SODIUM CL NASAL 45 ML BTL EACHNARE SCH ×2 (09:29→23:34)
[2017-12-02] MEDS: NYSTATIN POWDER 15 GM BTL TP SCH ×2 (09:30→23:32)
--- NOTE | 2017-12-02 16:55 | HOSPPROG ---
Hospitalist Progress Note Assessment/Plan: # MELANIE/nephrotic syndrome - diffuse proliferative crescentic GN - unclear exact etiology - getting HD per renal # anasarca/pleural effusions - volume removal with HD # multi-focal pna, MSSA bacteremia - ancef renally dosed per ID, stop date 12/16 # acute hypoxic resp failure - d/t above # acute dCHF exacerbation - vol removal with HD # DM1 - A1c 9.1% - glargine 10 -> 12 # SPCM - nutrition c/s # hypothyroid - synthroid started - outpatient f/u # dvt ppx - lovenox Subjective: no acute overnight events; having BMs Objective: Vital Signs Temp Pulse Resp BP Pulse Ox 36.6 C 86 18 142/100 H 98 12/02/17 14:18 12/02/17 15:37 12/02/17 14:18 12/02/17 14:18 12/02/17 15:37 Laboratory Results 12/02/17 05:45 12/02/17 05:45 12/01/17 12/02/17 12/03/17 05:59 05:59 05:59 Intake Total 920 480 Output Total 600 500 150 Balance 320 -20 -150 PT 15.1 SEC (12.0-15.0) H 11/21/17 19:45 INR 1.17 (0.83-1.16) H 11/21/17 19:45 chart reviewed imaging reviewed discussed with Dr Banks - Physical Exam Constitutional: no apparent distress, appears nourished Cardiovascular: regular rate and rhythym, no murmur, rub, or gallop Respiratory: no respiratory distress, other (marked L sided rales), No expiratory wheeze, No aegophony, No dullness to percussion Gastrointestinal: soft, non-tender abdomen, no palpable masses ICD10 Worksheet Patient Problems: Problems Problem Status Onset Hypoxia Acute Pneumonia Acute Anemia Acute Volume overload Acute Multifocal pneumonia Acute Pleural effusion Acute
--- NOTE | 2017-12-02 17:11 | ASMTCMCOM ---
CM Note CM Note Notes: Spoke with patient and his mother who had more questions. Ame from [facility] was out of the office today but I will talk to her tomorrow to see if there are any other solutions to the dialysis reimbursement issues. [facility] may consider patient since they have a dialysis center right across the street from their facility. Continue search for rehab facility for patient. CM will follow. Date Signed: 12/02/2017 05:10 PM Electronically Signed By:Verenice Pratt LCSW
--- NOTE | 2017-12-02 23:17 | HOSPPROG ---
Hospitalist Progress Note Assessment/Plan: 36 yo male with know acute renal failure 2/2 glomeruler disease, asked to see due to acute SOB after changing the dialysis lines, switching them out from arterial to venous during dialysis. Patient suddenly became sob. VS reviewed showed new hypoxemia that slowly resolved over 1 hour of care. CXR showed airspace consolidation on left, improved aeration on right with a left pleural effusion. Exam showed rales in Left lower lobe, Sao2 at 94% on 5-6 liters. This was decreased to baseline after 1 hour of care to baseline of 2-3 liter per minute. No c/o chest pain, nausea vomiting. Exam shows overall edema. assess: possible air embolism during change out of lines. sudden hypoxemia, now returned to baseline. VS now normal. Hypoxemia resolved. no signs of acute new infection Plan: continue dialysis with 4 liter fluid removal time 35 minutes of critical care time. Objective: Vital Signs Temp Pulse Resp BP Pulse Ox 36.6 C 86 18 142/100 H 98 12/02/17 14:18 12/02/17 15:37 12/02/17 14:18 12/02/17 14:18 12/02/17 15:37 Laboratory Results 12/02/17 05:45 12/02/17 05:45 12/01/17 12/02/17 12/03/17 05:59 05:59 05:59 Intake Total 920 480 Output Total 600 500 450 Balance 320 -20 -450 PT 15.1 SEC (12.0-15.0) H 11/21/17 19:45 INR 1.17 (0.83-1.16) H 11/21/17 19:45 ICD10 Worksheet Patient Problems: Problems Problem Status Onset Anemia Acute Hypoxia Acute Multifocal pneumonia Acute Pleural effusion Acute Pneumonia Acute Volume overload Acute
[2017-12-02] MEDS: traZODone 50 MG TAB PO SCH (23:25)
[2017-12-02] MEDS: PATCH REMOVAL 1 EA PATCH TD SCH (23:32)
[2017-12-02] MEDS ORDERED: HEPARIN 50,000 UNIT/10 ML VIAL ONE (23:43)
[2017-12-03] MEDS: LEVOTHYROXINE 25 MCG TAB PO SCH (04:39)
--- NOTE | 2017-12-03 07:41 | SOAPPROG ---
SOAP Progress Note Assessment/Plan: Assessment: 36 y/o M with a known h/o Type I DM, PNA and MSSA infection on multiple antibiotics who presents with edema and MELANIE. Etiology may be DM nephropathy with nephrotic syndrome vs ATN or AIN 2/2 to nafcillin, however, given hematuria and lung involvement cannot r/o RPGN such as vasculitis. 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 Minimal fibrosis < 10% and only 3 of 24 gloms globally sclerosed. -urine protein:cr 24h 15g -serologies neg: C3, C4, MPO, PR3, AntiGBM, ASO, KATHY -of note HIV, hep panel previously negative -HD initiated 11/27- running MWF schedule for now but daily assessment (still quite volume up) -I discussed with CM need to try and get outpt HD arrangements made as MELANIE pt and SNF- insurance may limit this -will need to exchange dialysis catheter to TDC at some point soon Hypoxia during HD last night -CXR stable- still impressive consolidation on L side, now back to baseline O2 needs -keira embolus unlikely as HD machine has hard safety stop with air bubble detector and catheters were handled appropriately- reviewed documentation designer pt reports symptoms began when he was lying on L side and question if there was fluid shifting as resolved fairly quickly on his own with respositioning -i think CTA while helpful to rule out a PE would be risky given contrast (and v /q would be hard to interpret given significant consolidation on L side). Thus I think TTE would be reasonable to evaluate- if RV strain, other signs of clot, would then anti-coagulate. I discussed this at length with Dr. Platt. Hyperkalemia -mild,renal diet Multi-focal PNA with b/l effusions, MSSA bacteremia -reportedly had bronchoscopy at outside hospital -antibiotics per ID Anemia -s/p transfusion- consider repeat if Hb <7 -most likely not related to chronic renal disease -hct stable post biopsy HIgh phos -Continue Ca acetate binder, phos 5.5 -renal diet I discussed plan with Dr. Platt and case management Lisa Banks MD [facility] [phone] 12/03/17 09:18 Subjective: Had HD last night. He reports that while lying on L side, he became acutely SOB , required NRB for a bit, now back to baseline O2 needs. He feels better this am and denies any sob. Notes he felt distended on L side when lying that way. No fevers/chills, cough. I reviewed HD documentation designer and no concerns for air in line or malfunction. Pt notes continued edema in LE and scrotum and reports this is painful. Objective: Vital Signs Temp Pulse Resp BP Pulse Ox 36.6 C 100 18 151/94 H 95 12/02/17 23:35 12/02/17 23:35 12/02/17 23:35 12/02/17 23:35 12/02/17 23:35 Laboratory Results 12/02/17 05:45 12/03/17 04:35 12/02/17 12/03/17 12/04/17 05:59 05:59 05:59 Intake Total 480 650 Output Total 500 450 Balance -20 200 PT 15.1 SEC (12.0-15.0) H 11/21/17 19:45 INR 1.17 (0.83-1.16) H 11/21/17 19:45 Physical Exam - Physical Exam General Appearance: alert, no apparent distress (on O2 by NC, not tachypneic, speaking full sentences) EENT: other (mmm) Neck: other (RIJ temp HD cath) Respiratory: crackles (L side, clear on R) Cardiac/Chest: regular rate, rhythm, other (no rub) Abdomen: non-tender, soft Extremities: other (+edema bilat lE) Neuro/Psych: alert, oriented x 3 ICD10 Worksheet Patient Problems: Problems Problem Status Onset Anemia Acute Hypoxia Acute Multifocal pneumonia Acute Pleural effusion Acute Pneumonia Acute Volume overload Acute
[2017-12-03] MEDS: ACETAMINOPHEN 325 MG TAB PO PRN ×3 (08:22→17:55)
[2017-12-03] MEDS: LIDOCAINE 5% 1 EA PATCH TD SCH (08:23)
[2017-12-03] MEDS: oxyCODONE IR 5 MG TAB PO PRN ×3 (08:23→17:55)
--- NOTE | 2017-12-03 08:53 | HOSPPROG ---
Hospitalist Progress Note Assessment/Plan: # acute dyspnea - occurred on HD; has significant infiltrate to explain; d- dimer noted - check VQ although doubt will be able to interpret this - check LE US - check echo # MELANIE/nephrotic syndrome - diffuse proliferative crescentic GN - unclear exact etiology - getting HD per renal # anasarca/pleural effusions - volume removal with HD # multi-focal pna, MSSA bacteremia - ancef renally dosed per ID, stop date 12/16 # acute hypoxic resp failure - d/t above # acute dCHF exacerbation - vol removal with HD # DM1 - A1c 9.1% - glargine 10 -> 12 # SPCM - nutrition c/s # hypothyroid - synthroid started - outpatient f/u # dvt ppx - [facility] Subjective: episode of dyspnea last night on HD; feels back to baseline currently Objective: Vital Signs Temp Pulse Resp BP Pulse Ox 36.6 C 100 18 151/94 H 95 12/02/17 23:35 12/02/17 23:35 12/02/17 23:35 12/02/17 23:35 12/02/17 23:35 Laboratory Results 12/02/17 05:45 12/03/17 04:35 12/02/17 12/03/17 12/04/17 05:59 05:59 05:59 Intake Total 480 650 Output Total 500 450 Balance -20 200 PT 15.1 SEC (12.0-15.0) H 11/21/17 19:45 INR 1.17 (0.83-1.16) H 11/21/17 19:45 chart reviewed CXR personally reviewed discussed with Dr Banks - Physical Exam Constitutional: uncomfortable Cardiovascular: regular rate and rhythym, no murmur, rub, or gallop Respiratory: no respiratory distress, inspiratory crackles (L sided), No bronchial breath sounds, No aegophony Gastrointestinal: soft, non-tender abdomen, no palpable masses ICD10 Worksheet Patient Problems: Problems Problem Status Onset Hypoxia Acute Pneumonia Acute Anemia Acute Volume overload Acute Multifocal pneumonia Acute Pleural effusion Acute
[2017-12-03] MEDS: CALCIUM ACETATE 667 MG CAP PO SCH ×3 (10:34→17:53)
[2017-12-03] MEDS: METOLAZONE 5 MG TAB PO SCH (10:34)
[2017-12-03] MEDS: FUROSEMIDE 40 MG/4 ML VIAL IVP SCH (10:35)
[2017-12-03] MEDS: INSULIN LISPRO 100 UNIT/ML SC SCH ×3 (10:37→17:53)
[2017-12-03] MEDS: NYSTATIN POWDER 15 GM BTL TP SCH ×2 (10:40→21:08)
[2017-12-03] MEDS: SODIUM CL NASAL 45 ML BTL EACHNARE SCH ×2 (10:40→21:07)
[2017-12-03] MEDS: INSULIN GLARGINE 100 UNITS/ML UNIT SC SCH (11:03)
--- NOTE | 2017-12-03 11:43 | ASMTCMCOM ---
CM Note CM Note Notes: Spoke with Ame at [facility] who states they can manage patient's dialysis needs and transport patient to his treatments. Informed patient we had removed barriers and he will be able to do his rehab with [facility]. Patient will let his mother know. Informed Dr. Platt patient has d/c plan in place when he is medically stable. CM will follow. Date Signed: 12/03/2017 11:42 AM Electronically Signed By:Verenice Pratt LCSW
--- NOTE | 2017-12-03 13:28 | ECHO ---
[email or web address] [address] [address] Main: [phone] Fax: Transthoracic Echocardiogram Name: GARRETT SINGLETON MR#: [id number] Study Date: 12/03/2017 Study Time: 10:23 AM Date of : 1980 Age: 36 year(s) Height: 175.3 cm (69 in.) Weight: 103.87 kg (229 lb.) BSA: 2.19 m2 Gender: Male Examination: Echo Indication: Acute Hypoxia Image Quality: Contrast: Requested by: Konstantin Platt BP: 128 mmHg/83 mmHg Heart Rate: Rhythm: Indication: Acute Hypoxia Procedure Staff Loading Dock Hand: Geo Pollard [facility] Reading Physician: Guille Desai Requesting Provider: Conclusions: small pericardial effusion. Right ventricular dilatation with reduced RV systolic function. Elevated right ventricular systolic pressure. Preserved left ventricular systolic function with septal wall motion abnormalities consistent with right ventricular pressure overload. Measurements: Chambers Valvular Assessment AV/MV Valvular Assessment TV/PV Normal Normal Normal Name Value Range Name Value Range Name Value Range Ao Judit (MM): 3.0 cm (2.2 cm-3.7 AV Vmax: 1.47 m/s (1 m/s-1.7 TR Vmax: 4.38 mm/s ( - ) cm) m/s) TR PGmax: 77 mmHg ( - ) IVSd (2D): 0.9 cm (0.6 cm-1.1 AV maxP mmHg ( - ) syst. PAP: 82 mmHg ( - ) cm) LVOT Vmax: 0.96 m/s (0.7 m/s-1.1 PV Vmax: 0.98 m/s (0.6 m/s-0.9 LVDd (2D): 5.4 cm (4.2 cm-5.9 m/s) m/s) cm) MV E Vmax: 1.28 m/s ( - ) PV PGmax: 4 mmHg ( - ) LVDs (2D): 3.1 cm (2.1 cm-4 MV A Vmax: 1.49 m/s ( - ) cm) MV E/A: 0.86 ( - ) LVPWd (2D): 0.9 cm (0.6 cm-1 cm) LVEF (2D): 74 (>=54 %) RVDd(2D): 5.4 cm (1.9 cm-3.8 cmmm) Continued Measurements: Chambers Valvular Assessment AV/MV Valvular Assessment TV/PV Name Value Name Value Name Value LADs Lon.7 cm MV E' Septal: 0.07 m/s CVP (est.): 5 mmHg LA Area: 16.9 cm2 MV E/E' Septal: 17.30 LA Volume: 55 ml LA Volume Index: 25.1 ml/m2 Patient: GARRETT SINGLETON Study Date: 12/03/2017 Page 1 of 2 10:23 AM Findings: Left Ventricle: Normal size left ventricle. Normal global systolic LV function. EF is 74 %. No regional wall motion abnormality. Right Ventricle: Moderately dilated right ventricle. Mildly to moderately reduced right ventricular function. Flattened interventricular septum consistent with right ventricular pressure and/or volume overload septum. Left Atrium: The left atrium is normal in size. Right Atrium: The right atrium is normal in size. Mitral Valve: The mitral valve is normal in appearance and function. Trivial mitral valve regurgitation. Aortic Valve: The aortic valve is tri-leaflet and functions normally. Tricuspid Valve: Mild to moderate tricuspid valve regurgitation. The pulmonary artery pressure is moderately to severely increased. The RVSP is most likely underestimated due to RV function.. Pulmonic Valve: The pulmonic valve is normal in appearance and function. Aorta: The aorta is normal. Pericardium: Small pericardial effusion. No echocardiographic evidence of hemodynamic compromise. (No Signature Object) Patient: GARRETT SINGLETON Study Date: 12/03/2017 Page 2 of 2 10:23 AM [id number]
[2017-12-03] MEDS: HEPARIN 5,000 UNIT/0.5 ML SYR SC SCH ×2 (13:47→21:06)
[2017-12-03] MEDS: POLYETHYLENE GLYCOL 3350 17 GM PKT PO PRN (18:02)
[2017-12-03] MEDS: traZODone 50 MG TAB PO SCH (21:07)
[2017-12-03] MEDS: PATCH REMOVAL 1 EA PATCH TD SCH (23:24)
[2017-12-04] MEDS: oxyCODONE IR 5 MG TAB PO PRN ×5 (01:34→23:55)
[2017-12-04] MEDS: ACETAMINOPHEN 325 MG TAB PO PRN ×4 (01:34→23:55)
[2017-12-04] MEDS: LEVOTHYROXINE 25 MCG TAB PO SCH (05:15)
[2017-12-04] MEDS: HEPARIN 5,000 UNIT/0.5 ML SYR SC SCH ×3 (05:15→21:01)
[2017-12-04] MEDS: ONDANSETRON 4 MG/2 ML VIAL IVP PRN (06:16)
[2017-12-04] MEDS: INSULIN LISPRO 100 UNIT/ML SC SCH ×3 (07:48→18:21)
[2017-12-04] MEDS: CALCIUM ACETATE 667 MG CAP PO SCH ×3 (07:48→18:10)
[2017-12-04] MEDS: FUROSEMIDE 40 MG/4 ML VIAL IVP SCH (07:49)
[2017-12-04] MEDS: INSULIN GLARGINE 100 UNITS/ML UNIT SC SCH (07:50)
[2017-12-04] MEDS: METOLAZONE 5 MG TAB PO SCH (07:51)
--- NOTE | 2017-12-04 07:51 | SOAPPROG ---
SOAP Progress Note Assessment/Plan: Assessment: 36 y/o M with a known h/o Type I DM, PNA and MSSA infection on multiple antibiotics who presents with edema and MELANIE. Etiology may be DM nephropathy with nephrotic syndrome vs ATN or AIN 2/2 to nafcillin, however, given hematuria and lung involvement cannot r/o RPGN such as vasculitis. 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 Minimal fibrosis < 10% and only 3 of 24 gloms globally sclerosed. -urine protein:cr 24h 15g -serologies neg: C3, C4, MPO, PR3, AntiGBM, ASO, KATHY -of note HIV, hep panel previously negative -HD initiated 11/27- running MWF schedule for now but daily assessment (still quite volume up) -I discussed with CM need to try and get outpt HD arrangements made as MELANIE pt and SNF-sounds like he can go to [facility] and working on outpt HD unit placement. Will tenatively plan on IR exchange dialysis catheter to TDC tomorrow (NPO after MN, hold heparin) Hypoxia during HD Saturday -CXR stable- still impressive consolidation on L side, now back to baseline O2 needs-- ID considering repeat Chest CT -air embolus unlikely as HD machine has hard safety stop with air bubble detector and catheters were handled appropriately- reviewed itinerant teacher assistant pt reports symptoms began when he was lying on L side and question if there was fluid shifting as resolved fairly quickly on his own with respositioning -venous doppler neg dvt, tte with rv dysfunction/volume overload- given acute oneset/nephrotic proteinuria, plans for v/q to eval for PE(admittedly hard to interpret given severe pna), low threshold to start heparin gtt Hyperkalemia -mild,renal diet Multi-focal PNA with b/l effusions, MSSA bacteremia -reportedly had bronchoscopy at outside hospital -antibiotics per ID-- will do Ancef 2g IV after HD Anemia -s/p transfusion- consider repeat if Hb <7 -most likely not related to chronic renal disease -hct stable post biopsy HIgh phos -Continue Ca acetate binder, phos at target -renal diet I discussed with Dr Platt. Dr. Mccord, and case management Lisa Banks MD [facility] [phone] 12/04/17 10:05 Subjective: Pt not in room as getting v.q scan. I discussed with hospitalist, ID, and case management. He is on stable O2 needs, still some SOB. Biggest worry is scrotal edema, tearful. Appears [facility] will accept pt, working on outpt HD arrangements. Objective: Vital Signs Temp Pulse Resp BP Pulse Ox 36.9 C 98 18 116/71 97 12/03/17 23:16 12/03/17 23:16 12/03/17 23:16 12/03/17 23:16 12/03/17 23:16 Laboratory Results 12/02/17 05:45 12/04/17 05:15 12/03/17 12/04/17 12/05/17 05:59 05:59 05:59 Intake Total 650 1200 Output Total 450 1325 Balance 200 -125 PT 15.1 SEC (12.0-15.0) H 11/21/17 19:45 INR 1.17 (0.83-1.16) H 11/21/17 19:45 ICD10 Worksheet Patient Problems: Problems Problem Status Onset Anemia Acute Hypoxia Acute Multifocal pneumonia Acute Pleural effusion Acute Pneumonia Acute Volume overload Acute
[2017-12-04] MEDS: SODIUM CL NASAL 45 ML BTL EACHNARE SCH ×2 (07:52→21:01)
[2017-12-04] MEDS: NYSTATIN POWDER 15 GM BTL TP SCH ×2 (07:53→20:57)
[2017-12-04] MEDS: LIDOCAINE 5% 1 EA PATCH TD SCH (07:55)
--- NOTE | 2017-12-04 09:41 | HOSPPROG ---
Hospitalist Progress Note Assessment/Plan: # acute dyspnea - occurred on HD; has significant infiltrate to explain; d- dimer noted - VQ pending # MELANIE/nephrotic syndrome - diffuse proliferative crescentic GN - unclear exact etiology - getting HD per renal # anasarca/pleural effusions - volume removal with HD # multi-focal pna, MSSA bacteremia - ancef renally dosed per ID, stop date 12/16 # acute hypoxic resp failure - d/t above # acute dCHF exacerbation - vol removal with HD # DM1 - A1c 9.1% - glargine 10 -> 12 -> 14 # SPCM - nutrition c/s # hypothyroid - synthroid started - outpatient f/u # dvt ppx - [facility] Subjective: concerned about his testicles; also c/o depression Objective: Vital Signs Temp Pulse Resp BP Pulse Ox 36.9 C 98 18 116/71 97 12/03/17 23:16 12/03/17 23:16 12/03/17 23:16 12/03/17 23:16 12/03/17 23:16 Laboratory Results 12/02/17 05:45 12/04/17 05:15 12/03/17 12/04/17 12/05/17 05:59 05:59 05:59 Intake Total 650 1200 Output Total 450 1325 Balance 200 -125 PT 15.1 SEC (12.0-15.0) H 11/21/17 19:45 INR 1.17 (0.83-1.16) H 11/21/17 19:45 chart reviewed echo reviewed US reviewed - Physical Exam Constitutional: uncomfortable, other (tearful) Cardiovascular: regular rate and rhythym, no murmur, rub, or gallop Respiratory: no respiratory distress, inspiratory crackles, No expiratory wheeze , No bronchial breath sounds Gastrointestinal: normoactive bowel sounds, soft, non-tender abdomen Genitourinary: other (scrotal edema) ICD10 Worksheet Patient Problems: Problems Problem Status Onset Hypoxia Acute Pneumonia Acute Anemia Acute Volume overload Acute Multifocal pneumonia Acute Pleural effusion Acute
[2017-12-04] MEDS ORDERED: INSULIN GLARGINE 100 UNITS/ML UNIT SC SCH (09:42)
[2017-12-04] MEDS: POLYETHYLENE GLYCOL 3350 17 GM PKT PO PRN (10:56)
[2017-12-04] MEDS: buPROPion XL 150 MG TAB PO SCH (10:56)
--- NOTE | 2017-12-04 12:25 | ASMTCMCOM ---
CM Note CM Note Notes: Dr. Squires, Nephrology would like patient to complete his dialysis with [facility]. Ame with [facility] states they will be able to accomodate this request. Patient will likely d/c on Saturday after a dialysis treatment which will make it so he won't be in need of another treament until Saturday. Patient has expressed feeling depressed as a result of his kidney being damaged. Michelle Tan will meet with patient today and CM will follow up. Juani Roque sent updates for patient. CM will follow. Date Signed: 12/04/2017 12:24 PM Electronically Signed By:Verenice Pratt LCSW
--- NOTE | 2017-12-04 18:04 | ASMTCMCOM ---
CM Note CM Note Notes: Dr. Squires called back to request we make arrangements for patient to go [facility]. Referral information was faxed to them. Spoke with Ame at [facility] who states they can provide transport to the appointments and this will not be a problem. [facility] continues to be the d/c plan. CM will follow. Date Signed: 12/04/2017 06:04 PM Electronically Signed By:Verenice Pratt LCSW
[2017-12-04] MEDS ORDERED: HEPARIN 50,000 UNIT/10 ML VIAL ONE (18:36)
[2017-12-04] MEDS: traZODone 50 MG TAB PO SCH (20:56)
[2017-12-04] MEDS: PATCH REMOVAL 1 EA PATCH TD SCH (21:01)
[2017-12-05] MEDS: HEPARIN 5,000 UNIT/0.5 ML SYR SC SCH ×2 (05:04→22:05)
[2017-12-05] MEDS: LEVOTHYROXINE 25 MCG TAB PO SCH (05:40)
[2017-12-05] MEDS: oxyCODONE IR 5 MG TAB PO PRN ×3 (05:40→22:04)
[2017-12-05] MEDS: ACETAMINOPHEN 325 MG TAB PO PRN ×2 (05:41→22:04)
[2017-12-05 05:58] LABS: PLATELET COUNT 102 10^3/uL (150-400)
[2017-12-05 06:02] LABS: INR 1.13 (0.83-1.16); PROTIME(PATIENT) 14.7 SEC (12.0-15.0)
--- NOTE | 2017-12-05 08:31 | HOSPPROG ---
Hospitalist Progress Note Assessment/Plan: # acute dyspnea - VQ intermediate prob - I doubt this episode represents a PE as it resolved and there is a better clinical explanation - observe, treat pna, volume status # MELANIE/nephrotic syndrome - diffuse proliferative crescentic GN - unclear exact etiology - getting HD/volume removal per renal - place tunneled line today per renal # anasarca/scrotal edema/pleural effusions - volume removal with HD # multi-focal pna, MSSA bacteremia - ancef renally dosed per ID, stop date 12/16 # acute hypoxic resp failure - d/t above # acute dCHF exacerbation - vol removal with HD # DM1 - A1c 9.1% - glargine 10 -> 12 -> 14 # SPCM - nutrition c/s # hypothyroid - synthroid started - outpatient f/u # dvt ppx - [facility] - hold today with tunneled line placement Subjective: he thinks his scrotum is larger today Objective: Vital Signs Temp Pulse Resp BP Pulse Ox 36.3 C 94 18 122/79 H 95 12/04/17 23:47 12/04/17 23:47 12/04/17 23:47 12/04/17 23:47 12/04/17 23:47 Laboratory Results 12/05/17 05:34 12/05/17 05:34 12/04/17 12/05/17 12/06/17 05:59 05:59 05:59 Intake Total 1200 1480 Output Total 1325 550 Balance -125 930 PT 14.7 SEC (12.0-15.0) 12/05/17 05:34 INR 1.13 (0.83-1.16) 12/05/17 05:34 VQ reviewed discussed with Dr Couch - Physical Exam Constitutional: no apparent distress, appears nourished Cardiovascular: regular rate and rhythym, no murmur, rub, or gallop Respiratory: no respiratory distress, inspiratory crackles (L sided), No expiratory wheeze, No bronchial breath sounds Gastrointestinal: normoactive bowel sounds, soft, non-tender abdomen Genitourinary: other (scrotal edema) ICD10 Worksheet Patient Problems: Problems Problem Status Onset Hypoxia Acute Pneumonia Acute Anemia Acute Volume overload Acute Multifocal pneumonia Acute Pleural effusion Acute
[2017-12-05] MEDS: buPROPion XL 150 MG TAB PO SCH (08:58)
[2017-12-05] MEDS: FUROSEMIDE 40 MG/4 ML VIAL IVP SCH (08:58)
[2017-12-05] MEDS: INSULIN LISPRO 100 UNIT/ML SC SCH ×3 (08:58→17:52)
[2017-12-05] MEDS: METOLAZONE 5 MG TAB PO SCH (08:58)
[2017-12-05] MEDS: CALCIUM ACETATE 667 MG CAP PO SCH ×3 (08:58→17:49)
[2017-12-05] MEDS: LIDOCAINE 5% 1 EA PATCH TD SCH (09:01)
[2017-12-05] MEDS ORDERED: HEPARIN 50,000 UNIT/10 ML VIAL ONE ×2 (09:18→16:51)
[2017-12-05] MEDS ORDERED: LIDOCAINE 1% 300 MG/30 ML SDV ONE (09:18)
[2017-12-05] MEDS ORDERED: FLUMAZENIL 0.5 MG/5 ML MDV IVP PRN (09:51)
[2017-12-05] MEDS ORDERED: fentaNYL 100 MCG/2 ML INJ IVP PRN (09:51)
[2017-12-05] MEDS ORDERED: NALOXONE HCL 0.4 MG/ML INJ IVP PRN (09:51)
[2017-12-05] MEDS ORDERED: MIDAZOLAM 2 MG/2 ML VIAL IVP PRN (09:51)
[2017-12-05] MEDS ORDERED: MEPERIDINE 25 MG/ML SYR IVP PRN (09:51)
[2017-12-05] MEDS ORDERED: fentaNYL 100 MCG/2 ML INJ ONE (09:53)
[2017-12-05] MEDS ORDERED: NS 1,000 ML IV SCH (10:00)
[2017-12-05] MEDS ORDERED: ACETAMINOPHEN 325 MG TAB PO ONE (10:04)
--- NOTE | 2017-12-05 10:13 | SOAPPROG ---
SOAP Progress Note Assessment/Plan: Assessment/Plan: MELANIE: pt with nephrotic syndrome, renal biopsy done on 11/22 shows post- infectious GN with minimal fibrosis and only 3/24 glomeruli are globally sclerosed. Pt has been on HD since 11/27, remains dialysis dependent, although UOP increased yesterday. - Will do HD today in setting of hyperkalemia, hypervolemia and needing transfusion. - Will also do HD again tomorrow. - Will continue to monitor for renal recovery. - Pt getting tunneled dialysis catheter today. - Appreciate CM involvement to place at outpatient dialysis unit, likely will be going to [facility]. Hyperkalemia: K 5.4, will modulate on HD. Pt is also on Lasix and metolazone. Hypervolemia: improving with HD, will continue to modulate with HD and diuretics. Anemia: Hgb 6.7, will transfuse today on HD. Hyperphosphatemia: Phos down to 4.2, will continue calcium acetate with meals. Subjective: No acute events overnight. Pt had HD yesterday and tolerated well. He still has swelling in his legs although improving. His breathing feels stable. Objective: Vital Signs Temp Pulse Resp BP Pulse Ox 36.3 C 94 18 122/79 H 95 12/04/17 23:47 12/04/17 23:47 12/04/17 23:47 12/04/17 23:47 12/04/17 23:47 Laboratory Results 12/05/17 05:34 12/05/17 05:34 12/04/17 12/05/17 12/06/17 05:59 05:59 05:59 Intake Total 1200 1480 Output Total 1325 550 Balance -125 930 PT 14.7 SEC (12.0-15.0) 12/05/17 05:34 INR 1.13 (0.83-1.16) 12/05/17 05:34 ICD10 Worksheet Patient Problems: Problems Problem Status Onset Anemia Acute Hypoxia Acute Multifocal pneumonia Acute Pleural effusion Acute Pneumonia Acute Volume overload Acute
[2017-12-05] MEDS: SODIUM CL NASAL 45 ML BTL EACHNARE SCH ×2 (11:56→22:06)
--- NOTE | 2017-12-05 15:18 | PCMIDPN ---
Assessment/Plan: # MSSA bacteremia and necrotizing left-sided PNA with early lung abscess. Lung function stable to improved with less o2 requirements, now down to 1.5L --stop date antibiotics is 12/16 --when discharged can switch to cefazolin 2gm three times weekly after HD and DC PICC line --if still here next week, get non-contrast CT chest # Renal insufficiency, nephrotic syndrome post infectious GN On HD now, greatly appreciate renal involvement # Rash to nafcillin: resolved, added to allergy list Microbiology HIV testing and QuantiFERON negative at outside hospital 11/10 blood cultures (2) neg 11/10 sputum culture: Bridgett 11/18 pleural fluid : Neg medication cefazolin 2gm IV qd, #24 Subjective: doing well, tunneled cath placed this AM without difficult Objective: Vital Signs Temp Pulse Resp BP Pulse Ox 36.5 C 91 16 115/87 H 99 12/05/17 07:45 12/05/17 07:45 12/05/17 07:45 12/05/17 10:30 12/05/17 10:35 Laboratory Results 12/05/17 05:34 12/05/17 05:34 12/04/17 12/05/17 12/06/17 05:59 05:59 05:59 Intake Total 1200 1480 Output Total 1325 550 Balance -125 930 Gen: lying flat NAD R chest tunneled cath R chest wall, small amt oozing blood CV RRR Chest crackle mid lung field to base Abd: soft NT LE minimal Edema RUE PICC c/d/i ICD10 Worksheet Patient Problems: Problems Problem Status Onset Anemia Acute Hypoxia Acute Multifocal pneumonia Acute Pleural effusion Acute Pneumonia Acute Volume overload Acute
[2017-12-05] MEDS: NYSTATIN POWDER 15 GM BTL TP SCH ×3 (17:48→22:55)
[2017-12-05] MEDS: traZODone 50 MG TAB PO SCH (22:04)
[2017-12-05] MEDS: PATCH REMOVAL 1 EA PATCH TD SCH (22:06)
[2017-12-05] MEDS: HYDROmorphONE/DILAUDID 1 MG/ML INJ IVP PRN (22:33)
[2017-12-06] MEDS: HEPARIN 5,000 UNIT/0.5 ML SYR SC SCH ×3 (05:12→21:24)
[2017-12-06] MEDS: LEVOTHYROXINE 25 MCG TAB PO SCH (05:12)
[2017-12-06] MEDS: oxyCODONE IR 5 MG TAB PO PRN ×4 (05:12→21:35)
[2017-12-06] MEDS: ACETAMINOPHEN 325 MG TAB PO PRN ×4 (05:12→21:35)
[2017-12-06] MEDS: FUROSEMIDE 40 MG/4 ML VIAL IVP SCH (08:14)
[2017-12-06] MEDS: buPROPion XL 150 MG TAB PO SCH (08:15)
[2017-12-06] MEDS: CALCIUM ACETATE 667 MG CAP PO SCH ×3 (08:16→16:55)
[2017-12-06] MEDS: METOLAZONE 5 MG TAB PO SCH (08:17)
[2017-12-06] MEDS: INSULIN LISPRO 100 UNIT/ML SC SCH ×3 (08:20→18:09)
[2017-12-06] MEDS: LIDOCAINE 5% 1 EA PATCH TD SCH (08:34)
[2017-12-06 08:37] LABS: PLATELET COUNT 122 10^3/uL (150-400)
[2017-12-06] MEDS: INSULIN GLARGINE 100 UNITS/ML UNIT SC SCH (08:37)
[2017-12-06] MEDS: HYDROmorphONE/DILAUDID 1 MG/ML INJ IVP PRN ×2 (08:59→18:04)
--- NOTE | 2017-12-06 09:03 | HOSPPROG ---
Hospitalist Progress Note Assessment/Plan: # acute dyspnea - VQ intermediate prob - I doubt this episode represents a PE as it resolved and there is a better clinical explanation - observe, treat pna, volume status - if worsens, he may require empiric anticoagulation - his rib pain is also noted which is not c/w pleuritic pain from a PE # rib pain - check rib films; dilaudid, cont lidoderm patch # MELANIE/nephrotic syndrome - diffuse proliferative crescentic GN - unclear exact etiology - getting HD/volume removal per renal - place tunneled line today per renal # anasarca/scrotal edema/pleural effusions - volume removal with HD # multi-focal pna, MSSA bacteremia - ancef renally dosed per ID, stop date 12/16 # acute hypoxic resp failure - d/t above # acute dCHF exacerbation - vol removal with HD; also on diuretics # DM1 - A1c 9.1%; mild hypoglycemia today, likely d/t being NPO - decr glargine slightly today # SPCM - nutrition c/s # hypothyroid - synthroid started - outpatient f/u # dvt ppx - [facility] Subjective: c/o R sided rib pain Objective: Vital Signs Temp Pulse Resp BP Pulse Ox 36.6 C 84 16 144/104 H 98 12/06/17 07:46 12/06/17 07:46 12/06/17 07:46 12/06/17 07:46 12/06/17 07:46 Laboratory Results 12/06/17 08:14 12/06/17 05:16 12/05/17 12/06/17 12/07/17 05:59 05:59 05:59 Intake Total 1480 560 Output Total 550 200 200 Balance 930 360 -200 PT 14.7 SEC (12.0-15.0) 12/05/17 05:34 INR 1.13 (0.83-1.16) 12/05/17 05:34 - Physical Exam Constitutional: uncomfortable Cardiovascular: regular rate and rhythym, no murmur, rub, or gallop Respiratory: no respiratory distress, inspiratory crackles (L sided), No expiratory wheeze, No bronchial breath sounds Gastrointestinal: soft, non-tender abdomen, no palpable masses Musculoskeletal: other (very TTP R ribs anterior and posterior) ICD10 Worksheet Patient Problems: Problems Problem Status Onset Hypoxia Acute Pneumonia Acute Anemia Acute Volume overload Acute Multifocal pneumonia Acute Pleural effusion Acute
--- NOTE | 2017-12-06 11:44 | ASMTCMCOM ---
CM Note CM Note Notes: CM spoke w/ Hyun RN regarding d/c POC. Pt had extra dialysis yesterday and will have dialysis today. Pt is normally scheduled to have dialysis MWF. Pts current potassium level is low. The plan remains the same. Pt will d/c to [facility] when medically stable. Updates sent to [facility]. CM to follow. Plan: [facility] Date Signed: 12/06/2017 11:43 AM Electronically Signed By:AUBREE Allen
--- NOTE | 2017-12-06 14:29 | SOAPPROG ---
SOAP Progress Note Assessment/Plan: Assessment: 1. MELANIE. 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 Also with ATN. Rx geared toward treatment of infection. With extensive PNA would not add steroids. Started dialysis for azotemia, K and volume. Still has good prognosis for recovery of renal function although doubt will get back to prior baseline. May take days or weeks. Tunneled cath in place. Has arrangements to dialyze at [facility] dialysis after discharge. HD yesterday, today, again tomorrow. 2. Anasarca. UF on dialysis. PUF treatment again tomorrow. Wt unchanged (actually up 1 kg) over the past wk. Discussed need for more strict Na/H2O restriction. 3. MSSA PNA with abscess. Continue ancef, per ID. 4. Pleuritic chest pain. Ongoing. V/q indeterminate. For cxr today. Continue to pull fluid. Plan: 11/27/17 14:46 11/27/17 14:50 11/28/17 15:49 12/06/17 14:27 12/06/17 14:29 12/06/17 14:31 Subjective: Seen on dialysis. C/o R sided chest pain, similar to when I saw him last week. Worse with moving around. C/o scrotal swelling. Objective: Vital Signs Temp Pulse Resp BP Pulse Ox 36.6 C 84 16 144/104 H 98 12/06/17 07:46 12/06/17 07:46 12/06/17 07:46 12/06/17 07:46 12/06/17 07:46 Laboratory Results 12/06/17 08:14 12/06/17 05:16 12/05/17 12/06/17 12/07/17 05:59 05:59 05:59 Intake Total 1480 560 Output Total 550 200 200 Balance 930 360 -200 PT 14.7 SEC (12.0-15.0) 12/05/17 05:34 INR 1.13 (0.83-1.16) 12/05/17 05:34 On dialysis Qb 350 2 K 2.5 Ca Comfortable R sided tunneled dialysis cath in place RRR, no m/g/r CTAB Abdom obese, nt Scrotum swollen 4+ sacral pitting edema, tr LE edema ICD10 Worksheet Patient Problems: Problems Problem Status Onset Hypoxia Acute Pneumonia Acute Anemia Acute Volume overload Acute Multifocal pneumonia Acute Pleural effusion Acute
[2017-12-06] MEDS: NYSTATIN POWDER 15 GM BTL TP SCH ×2 (16:56→21:25)
[2017-12-06] MEDS: SODIUM CL NASAL 45 ML BTL EACHNARE SCH ×2 (16:57→21:25)
[2017-12-06] MEDS ORDERED: HEPARIN 50,000 UNIT/10 ML VIAL ONE (17:11)
[2017-12-06] MEDS: traZODone 50 MG TAB PO SCH (21:24)
[2017-12-06] MEDS: PATCH REMOVAL 1 EA PATCH TD SCH (21:30)
[2017-12-07] MEDS: oxyCODONE IR 5 MG TAB PO PRN ×5 (01:40→20:54)
[2017-12-07] MEDS: HYDROmorphONE/DILAUDID 1 MG/ML INJ IVP PRN ×4 (01:43→14:42)
[2017-12-07] MEDS: HEPARIN 5,000 UNIT/0.5 ML SYR SC SCH ×3 (06:07→20:53)
[2017-12-07] MEDS: LEVOTHYROXINE 25 MCG TAB PO SCH (06:07)
[2017-12-07] MEDS: INSULIN LISPRO 100 UNIT/ML SC SCH ×3 (08:04→18:33)
[2017-12-07] MEDS: METOLAZONE 5 MG TAB PO SCH (09:47)
[2017-12-07] MEDS: CALCIUM ACETATE 667 MG CAP PO SCH ×3 (09:47→18:27)
[2017-12-07] MEDS: FUROSEMIDE 40 MG/4 ML VIAL IVP SCH (09:47)
[2017-12-07] MEDS: buPROPion XL 150 MG TAB PO SCH (09:47)
[2017-12-07] MEDS: INSULIN GLARGINE 100 UNITS/ML UNIT SC SCH (09:50)
[2017-12-07] MEDS: LIDOCAINE 5% 1 EA PATCH TD SCH (09:57)
[2017-12-07] MEDS: NYSTATIN POWDER 15 GM BTL TP SCH ×2 (10:00→20:57)
[2017-12-07] MEDS: ACETAMINOPHEN 325 MG TAB PO PRN ×2 (10:05→20:55)
[2017-12-07] MEDS: SODIUM CL NASAL 45 ML BTL EACHNARE SCH ×2 (10:43→20:57)
--- NOTE | 2017-12-07 11:43 | SOAPPROG ---
SOAP Progress Note Assessment/Plan: A/P: The patient is a 36 y/o M with a known h/o Type I DM, PNA and MSSA infection on multiple antibiotics who presents with edema and MELANIE found to have crescentic GN with IgA and C3 deposition 2/2 to MSSA infection and ATN. 1. MELANIE. Rx geared toward treatment of infection. With extensive PNA would not add steroids. Has completed 2 rounds of HD, dialysis again today. Still has good prognosis for recovery of renal function although doubt will get back to prior baseline and may take weeks. Tunneled cath in place. Has arrangements to dialyze at [facility] dialysis after discharge. Will plan to dialyze again Saturday. 2. HTN/volume overload UF on dialysis. Holding metolazone will continue lasix for now. Discussed need for more strict Na/H2O restriction. 3. MSSA PNA with abscess. Continue ancef, per ID until 12/16 Fungal cx ordered 4. Rib pain V/Q intermediate prob, less likely per primary tea 11th rib fracture on R seen on CXR Pain control dosed for eGFR<10 5. Anemia Hb drop to <7 on 12/05, no transfusion recently, may be spurious lab vs possible hemoconcentration with UF? Check daily CBC. Will hold IV iron in the setting of infection, will consider EPO. GI consult 6. BMD -mild hyperkalemia resolved -on phos binder -renal diet 12/07/17 12:09 Subjective: No events overnight. Patient is tolerating HD ok. Denies signs of bleeding. Objective: Vital Signs Temp Pulse Resp BP Pulse Ox 36.6 C 91 12 131/90 H 97 12/07/17 07:20 12/07/17 07:20 12/07/17 07:20 12/07/17 07:20 12/07/17 07:20 Laboratory Results 12/06/17 08:14 12/07/17 06:05 12/06/17 12/07/17 12/08/17 05:59 05:59 05:59 Intake Total 560 300 Output Total 200 500 Balance 360 -200 PT 14.7 SEC (12.0-15.0) 12/05/17 05:34 INR 1.13 (0.83-1.16) 12/05/17 05:34 Physical Exam - Physical Exam General Appearance: WD/WN, alert, mild distress EENT: PERRL/EOMI, TMs normal Neck: non-tender, supple Respiratory: decreased breath sounds, crackles Cardiac/Chest: regular rate, rhythm, edema Abdomen: normal bowel sounds, non-tender, soft Skin: normal color, warm/dry Extremities: non-tender, pedal edema Neuro/Psych: no motor/sensory deficits, alert, normal mood/affect ICD10 Worksheet Patient Problems: Problems Problem Status Onset Anemia Acute Hypoxia Acute Multifocal pneumonia Acute Pleural effusion Acute Pneumonia Acute Volume overload Acute
--- NOTE | 2017-12-07 13:55 | HOSPPROG ---
Hospitalist Progress Note Assessment/Plan: 36-year-old admitted with anasarca renal failure and pneumonia with likely allergic reaction to nafcillin. 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 He is getting hemodialysis per Nephrology and appreciate their ongoing help. # multifocal pneumonia secondary to MSSA complicated by bacteremia currently on Ancef and followed by infectious disease. * Continue with length of therapy to be determined by ID # shortness of breath and hypoxic respiratory failure likely multifactorial. He did have a indeterminate V/Q scan but that seems less likely given his presenting symptoms. Would not treat at this point for pulmonary embolism but continue to follow his symptoms. This is also complicated by a right rib fracture secondary to coughing. * Supportive care * Continue treatment for pneumonia * Pain control # acute kidney injury and nephrotic syndrome secondary to diffuse proliferative crescentic GN with unclear etiology * Continue dialysis for volume control per Nephrology * Has a tunneled catheter in place * Hopefully will have improvement in renal function over time * Will eventually be discharged to [facility] with outpatient dialysis # anasarca, volume removal with HD, continues on IV Lasix with minimal diuresis # type 1 diabetes continue glargine and sliding scale insulin, poor control likely worsened by acute infection # hypothyroidism currently on replacement started here in the hospital # DVT prophylaxis with subcu hep Disposition: Patient will be discharged to [facility] once his medical issues have stabilized and Nephrology agrees it he is stable for outpatient dialysis if he does not improve in the next few days Subjective: Patient new to me and chart reviewed, complains mainly of right- sided rib pain due to his fracture. Cough is better breathing is better. Objective: Vital Signs Temp Pulse Resp BP Pulse Ox 36.6 C 91 12 131/90 H 97 12/07/17 07:20 12/07/17 07:20 12/07/17 07:20 12/07/17 07:20 12/07/17 07:20 Laboratory Results 12/06/17 08:14 12/07/17 06:05 12/06/17 12/07/17 12/08/17 05:59 05:59 05:59 Intake Total 560 300 Output Total 200 500 Balance 360 -200 PT 14.7 SEC (12.0-15.0) 12/05/17 05:34 INR 1.13 (0.83-1.16) 12/05/17 05:34 - Physical Exam Constitutional: obese, uncomfortable Eyes: PERRL, EOMI Ears, Nose, Mouth, Throat: moist mucous membranes Cardiovascular: regular rate and rhythym, edema Respiratory: no respiratory distress, reduced air movement Gastrointestinal: normoactive bowel sounds, soft, non-tender abdomen Genitourinary: no bladder fullness Skin: warm Neurologic: AAOx3 Psychiatric: interacting appropriately, not anxious ICD10 Worksheet Patient Problems: Problems Problem Status Onset Hypoxia Acute Pneumonia Acute Anemia Acute Volume overload Acute Multifocal pneumonia Acute Pleural effusion Acute
[2017-12-07] MEDS: FUROSEMIDE 40 MG TAB PO SCH (14:23)
[2017-12-07] MEDS: HYDROmorphONE/DILAUDID 2 MG TAB PO PRN (18:27)
[2017-12-07] MEDS ORDERED: HEPARIN 50,000 UNIT/10 ML VIAL ONE (19:16)
[2017-12-07] MEDS: traZODone 50 MG TAB PO SCH (20:55)
[2017-12-07] MEDS: PATCH REMOVAL 1 EA PATCH TD SCH (20:56)
[2017-12-08] MEDS: HYDROmorphONE/DILAUDID 2 MG TAB PO PRN ×4 (02:36→21:47)
[2017-12-08] MEDS: LEVOTHYROXINE 25 MCG TAB PO SCH (05:36)
[2017-12-08] MEDS: HEPARIN 5,000 UNIT/0.5 ML SYR SC SCH ×3 (05:36→21:46)
[2017-12-08] MEDS: CALCIUM ACETATE 667 MG CAP PO SCH ×3 (08:07→17:45)
[2017-12-08] MEDS: FUROSEMIDE 40 MG TAB PO SCH ×2 (08:07→14:46)
[2017-12-08] MEDS: buPROPion XL 150 MG TAB PO SCH (08:07)
[2017-12-08] MEDS: INSULIN GLARGINE 100 UNITS/ML UNIT SC SCH (08:08)
[2017-12-08] MEDS: SODIUM CL NASAL 45 ML BTL EACHNARE SCH ×2 (08:09→21:47)
[2017-12-08] MEDS: NYSTATIN POWDER 15 GM BTL TP SCH ×2 (08:09→21:49)
[2017-12-08] MEDS: INSULIN LISPRO 100 UNIT/ML SC SCH ×3 (08:12→17:45)
[2017-12-08] MEDS: LIDOCAINE 5% 1 EA PATCH TD SCH (08:13)
[2017-12-08] MEDS: POLYETHYLENE GLYCOL 3350 17 GM PKT PO PRN (10:21)
--- NOTE | 2017-12-08 11:29 | SOAPPROG ---
SOAP Progress Note Assessment/Plan: A/P: The patient is a 36 y/o M with a known h/o Type I DM, PNA and MSSA infection on multiple antibiotics who presents with edema and MELANIE found to have crescentic GN with IgA and C3 deposition 2/2 to MSSA infection and ATN. 1. MELANIE. Rx geared toward treatment of infection. Avoiding steroids in the setting of infection 3rd session of HD yesterday. Still has good prognosis for recovery of renal function although doubt will get back to prior baseline and may take weeks. Continue to monitor UO for recovery, may also need repeat biopsy and/or 24h creatinine collection in the future for assessment of recovery Tunneled cath in place. Has arrangements to dialyze at [facility] after discharge. Going to [facility]. Will plan to dialyze again Saturday, orders written. 2. HTN/volume overload UF on dialysis. Holding metolazone will continue lasix for now. Discussed need for more strict Na/H2O restriction. 3. MSSA PNA with abscess. Continue ancef, per ID until 12/16 Fungal cx pending. 4. Rib pain V/Q intermediate prob, less likely per primary team 11th rib fracture on R seen on CXR Pain control dosed for eGFR<10 5. Anemia Hb drop to <7 on 12/05, no transfusion recently, may be spurious lab vs possible hemoconcentration with UF? Check daily CBC, ordered for tomorrow. Will hold IV iron in the setting of infection, will dose EPO tomorrow on HD GI consult 6. BMD -mild hyperkalemia, often elevated BS's -on phos binder -renal diet 12/08/17 11:29 Subjective: Patient concerned about being ESRD. Has some insurance issues. Also needs transportation from [facility] to dialysis once discharged he states. Objective: Vital Signs Temp Pulse Resp BP Pulse Ox 36.6 C 94 20 141/97 H 96 12/08/17 07:29 12/08/17 07:29 12/08/17 07:29 12/08/17 07:29 12/08/17 07:29 Laboratory Results 12/06/17 08:14 12/08/17 08:39 12/07/17 12/08/17 12/09/17 05:59 05:59 05:59 Intake Total 300 570 Output Total 500 350 175 Balance -200 220 -175 PT 14.7 SEC (12.0-15.0) 12/05/17 05:34 INR 1.13 (0.83-1.16) 12/05/17 05:34 Physical Exam - Physical Exam General Appearance: WD/WN, alert, no apparent distress, obese EENT: PERRL/EOMI, normal ENT inspection Neck: non-tender, full range of motion, supple Respiratory: decreased breath sounds, crackles Abdomen: normal bowel sounds, non-tender, soft Skin: normal color, warm/dry Extremities: normal range of motion, non-tender, pedal edema Neuro/Psych: no motor/sensory deficits, alert, normal mood/affect, oriented x 3 ICD10 Worksheet Patient Problems: Problems Problem Status Onset Anemia Acute Hypoxia Acute Multifocal pneumonia Acute Pleural effusion Acute Pneumonia Acute Volume overload Acute
[2017-12-08] MEDS ORDERED: EPOETIN ALFA 10,000 UNIT/ML VIAL SC SCH (11:45)
--- NOTE | 2017-12-08 13:24 | HOSPPROG ---
Hospitalist Progress Note Assessment/Plan: 36-year-old admitted with anasarca renal failure and pneumonia with likely allergic reaction to nafcillin. 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 He is getting hemodialysis per Nephrology and appreciate their ongoing help. # multifocal pneumonia secondary to MSSA complicated by bacteremia currently on Ancef and followed by infectious disease. * Continue with length of therapy to be determined by ID * Probably DC soon to [facility] with outpatient dialysis * Poor urine output continues although weight down 2 kg overnight with dialysis # shortness of breath and hypoxic respiratory failure likely multifactorial. He did have a indeterminate V/Q scan but that seems less likely given his presenting symptoms. Would not treat at this point for pulmonary embolism but continue to follow his symptoms. This is also complicated by a right rib fracture secondary to coughing. * Supportive care, O2 needs decreasing with dialysis * Continue treatment for pneumonia * Pain control # acute kidney injury and nephrotic syndrome secondary to diffuse proliferative crescentic GN with unclear etiology * Continue dialysis for volume control per Nephrology * Has a tunneled catheter in place * Hopefully will have improvement in renal function over time * Will eventually be discharged to [facility] with outpatient dialysis # anasarca, volume removal with HD, continues on IV Lasix with minimal diuresis # type 1 diabetes continue glargine and sliding scale insulin, poor control likely worsened by acute infection # hypothyroidism currently on replacement started here in the hospital, given patient's eyes and levels of thyroid will bump up dose to 50 mcgs daily will need follow-up TSH in 4 weeks # anemia, normal iron levels, negative heme in stool. Status post transfusion. Recheck hemoglobin tomorrow will eventually need further evaluation as outpatient if anemia persists. # DVT prophylaxis with subcu hep Disposition: Patient will be discharged to [facility] once his medical issues have stabilized and Nephrology agrees it he is stable for outpatient dialysis. Subjective: Patient wants to go to [facility], still complains of fairly significant pain in his right rib area Objective: Vital Signs Temp Pulse Resp BP Pulse Ox 36.6 C 94 20 141/97 H 96 12/08/17 07:29 12/08/17 07:29 12/08/17 07:29 12/08/17 07:29 12/08/17 07:29 Laboratory Results 12/06/17 08:14 12/08/17 08:39 12/07/17 12/08/17 12/09/17 05:59 05:59 05:59 Intake Total 300 570 Output Total 500 350 175 Balance -200 220 -175 PT 14.7 SEC (12.0-15.0) 12/05/17 05:34 INR 1.13 (0.83-1.16) 12/05/17 05:34 - Physical Exam Constitutional: obese, uncomfortable Eyes: PERRL, anicteric sclera Ears, Nose, Mouth, Throat: moist mucous membranes, hearing normal Cardiovascular: regular rate and rhythym, edema (Anasarca with scrotal edema) Respiratory: no respiratory distress, clear to auscultation, reduced air movement Gastrointestinal: No tenderness, No guarding, No rebound Genitourinary: no bladder fullness Skin: warm Musculoskeletal: generalized weakness Neurologic: AAOx3 Psychiatric: interacting appropriately, not encephalopathic ICD10 Worksheet Patient Problems: Problems Problem Status Onset Anemia Acute Hypoxia Acute Multifocal pneumonia Acute Pleural effusion Acute Pneumonia Acute Volume overload Acute
[2017-12-08] MEDS: oxyCODONE IR 5 MG TAB PO PRN (17:46)
[2017-12-08] MEDS: LACTULOSE 20 GM/30 ML UDCUP PO PRN (17:51)
[2017-12-08] MEDS: traZODone 50 MG TAB PO SCH (21:47)
[2017-12-08] MEDS: ACETAMINOPHEN 325 MG TAB PO PRN (21:47)
[2017-12-08] MEDS: PATCH REMOVAL 1 EA PATCH TD SCH (21:49)
[2017-12-09] MEDS: HYDROmorphONE/DILAUDID 2 MG TAB PO PRN ×4 (05:31→22:11)
[2017-12-09] MEDS: LEVOTHYROXINE 50 MCG TAB PO SCH (05:31)
[2017-12-09] MEDS: HEPARIN 5,000 UNIT/0.5 ML SYR SC SCH ×3 (05:32→22:14)
[2017-12-09 05:53] LABS: PLATELET COUNT 116 10^3/uL (150-400)
--- NOTE | 2017-12-09 10:15 | ASMTCMCOM ---
CM Note CM Note Notes: Spoke with patient today about his concerns regarding placement in SNF rehab. Reassured patient [facility] can get him to his dialysis appointments. Patient reports his mother has not been able to find housing here yet. She is still in [place]. [facility] remains the d/c plan. CM will follow. Date Signed: 12/09/2017 10:14 AM Electronically Signed By:Verenice Pratt LCSW
[2017-12-09] MEDS: INSULIN LISPRO 100 UNIT/ML SC SCH ×3 (11:21→18:15)
[2017-12-09] MEDS: FUROSEMIDE 40 MG TAB PO SCH ×2 (12:00→15:46)
[2017-12-09] MEDS: CALCIUM ACETATE 667 MG CAP PO SCH ×3 (12:00→18:15)
[2017-12-09] MEDS: buPROPion XL 150 MG TAB PO SCH (12:00)
[2017-12-09] MEDS: LIDOCAINE 5% 1 EA PATCH TD SCH (12:01)
[2017-12-09] MEDS: POLYETHYLENE GLYCOL 3350 17 GM PKT PO PRN (12:01)
[2017-12-09] MEDS: INSULIN GLARGINE 100 UNITS/ML UNIT SC SCH (12:01)
--- NOTE | 2017-12-09 13:50 | HOSPPROG ---
Hospitalist Progress Note Assessment/Plan: 36-year-old admitted with anasarca renal failure and pneumonia with likely allergic reaction to nafcillin. 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 He is getting hemodialysis per Nephrology and appreciate their ongoing help. Discussed with Nephrology today he is okay for discharge after dialysis. Will plan on discharge tomorrow and follow up dialysis in the outpatient setting on Saturday # multifocal pneumonia secondary to MSSA complicated by bacteremia currently on Ancef and followed by infectious disease. * Continue with length of therapy to be determined by ID, current stop date is 12/16 * Will recheck CT scan today to follow-up on pulmonary infection * Probably DC soon to [facility] with outpatient dialysis * Poor urine output continues although weight down 2 kg overnight with dialysis. # shortness of breath and hypoxic respiratory failure likely multifactorial. He did have a indeterminate V/Q scan but that seems less likely given his presenting symptoms. Would not treat at this point for pulmonary embolism but continue to follow his symptoms. This is also complicated by a right rib fracture secondary to coughing. * Supportive care, O2 needs decreasing with dialysis * Continue treatment for pneumonia * Pain control # acute kidney injury and nephrotic syndrome secondary to diffuse proliferative crescentic GN with unclear etiology * Continue dialysis for volume control per Nephrology * Has a tunneled catheter in place * Hopefully will have improvement in renal function over time * Will eventually be discharged to [facility] with outpatient dialysis # anasarca, volume removal with HD, continues on IV Lasix with minimal diuresis # type 1 diabetes continue glargine and sliding scale insulin, poor control likely worsened by acute infection # hypothyroidism currently on replacement started here in the hospital, given patient's eyes and levels of thyroid will bump up dose to 50 mcgs daily will need follow-up TSH in 4 weeks # anemia, normal iron levels, negative heme in stool. Status post transfusion. Recheck hemoglobin tomorrow will eventually need further evaluation as outpatient if anemia persists. # DVT prophylaxis with subcu hep Disposition: Patient will be discharged to [facility] once his medical issues have stabilized and Nephrology agrees it he is stable for outpatient dialysis. Subjective: Patient getting up to ambulate, still complains of excessive scrotal swelling. Discussed with ID and Nephrology Objective: Vital Signs Temp Pulse Resp BP Pulse Ox 36.4 C 93 16 125/97 H 100 12/09/17 07:33 12/09/17 07:33 12/09/17 07:33 12/09/17 07:33 12/09/17 07:33 Laboratory Results 12/09/17 05:36 12/09/17 05:36 12/08/17 12/09/17 12/10/17 05:59 05:59 05:59 Intake Total 570 858 Output Total 350 500 Balance 220 358 PT 14.7 SEC (12.0-15.0) 12/05/17 05:34 INR 1.13 (0.83-1.16) 12/05/17 05:34 - Physical Exam Constitutional: obese, uncomfortable Eyes: PERRL, anicteric sclera, EOMI Ears, Nose, Mouth, Throat: hearing normal, ears appear normal Cardiovascular: regular rate and rhythym, edema (Mainly scrotal swelling) Respiratory: no respiratory distress Gastrointestinal: normoactive bowel sounds, soft, non-tender abdomen Genitourinary: other (Significant scrotal swelling) Skin: warm, other (Erythema scrotum with swelling) Musculoskeletal: abnormal gait (Walking with walker), generalized weakness Neurologic: AAOx3 Psychiatric: interacting appropriately, not anxious ICD10 Worksheet Patient Problems: Problems Problem Status Onset Anemia Acute Hypoxia Acute Multifocal pneumonia Acute Pleural effusion Acute Pneumonia Acute Volume overload Acute
--- NOTE | 2017-12-09 14:19 | SOAPPROG ---
SOAP Progress Note Assessment/Plan: Assessment: 1. MELANIE. 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 Also with ATN. Rx geared toward treatment of infection. With extensive PNA would not add steroids. Started dialysis for azotemia, K and volume. Still has okay prognosis for recovery of renal function although doubt will get back to prior baseline. May take weeks. Tunneled cath in place. Has arrangements to dialyze at [facility] dialysis after discharge on Saturday. HD today, again tomorrow for UF. Will need to watch K and Na in diet. 2. Anasarca. UF on dialysis. PUF treatment again tomorrow. Discussed need for strict Na/H2O restriction. 3. MSSA PNA with abscess. Continue ancef, per ID through 12/16. Can be given at dialysis to avoid need for PICC. 4. R rib fx Supportive care. Plan: 11/27/17 14:46 11/27/17 14:50 11/28/17 15:49 12/06/17 14:27 12/06/17 14:29 12/06/17 14:31 12/09/17 14:16 Subjective: Had dialysis earlier this am. Reports 2.2 L UF, no problems. Scrotum still swollen. No cough, fevers. Objective: Vital Signs Temp Pulse Resp BP Pulse Ox 36.4 C 93 16 125/97 H 100 12/09/17 07:33 12/09/17 07:33 12/09/17 07:33 12/09/17 07:33 12/09/17 07:33 Laboratory Results 12/09/17 05:36 12/09/17 05:36 12/08/17 12/09/17 12/10/17 05:59 05:59 05:59 Intake Total 570 858 Output Total 350 500 Balance 220 358 PT 14.7 SEC (12.0-15.0) 12/05/17 05:34 INR 1.13 (0.83-1.16) 12/05/17 05:34 RRR, no m/g/r CTAB Abdom soft, nt No edema below knees but 3+ sacral and grapefruit sized scrotum ICD10 Worksheet Patient Problems: Problems Problem Status Onset Hypoxia Acute Pneumonia Acute Anemia Acute Volume overload Acute Multifocal pneumonia Acute Pleural effusion Acute
[2017-12-09] MEDS ORDERED: HEPARIN 50,000 UNIT/10 ML VIAL ONE (14:46)
[2017-12-09] MEDS: SODIUM CL NASAL 45 ML BTL EACHNARE SCH ×2 (18:15→22:13)
[2017-12-09] MEDS: NYSTATIN POWDER 15 GM BTL TP SCH ×2 (18:16→19:49)
[2017-12-09] MEDS: traZODone 50 MG TAB PO SCH (22:12)
[2017-12-09] MEDS: PATCH REMOVAL 1 EA PATCH TD SCH (22:13)
[2017-12-10] MEDS: LEVOTHYROXINE 50 MCG TAB PO SCH (05:34)
[2017-12-10] MEDS: HEPARIN 5,000 UNIT/0.5 ML SYR SC SCH ×2 (05:34→14:57)
[2017-12-10] MEDS: HYDROmorphONE/DILAUDID 2 MG TAB PO PRN ×2 (05:34→12:20)
[2017-12-10] MEDS: INSULIN LISPRO 100 UNIT/ML SC SCH ×2 (07:55→12:20)
--- NOTE | 2017-12-10 08:18 | SOAPPROG ---
SOAP Progress Note Assessment/Plan: Assessment: MELANIE requiring HD infection related GN (staph GN) on ABX DM-I UOP picking up, diuresis Plan: Finish ABX course HD today OK for dismissal when outpatient HD arranged suspect he will recover renal function 12/10/17 08:14 12/10/17 08:18 Subjective: Feeling better no sob nausea or vomiting has Fx rib from coughing, some cp spirits good appetite better Objective: Vital Signs Temp Pulse Resp BP Pulse Ox 36.8 C 95 18 142/97 H 96 12/10/17 07:42 12/10/17 07:42 12/10/17 07:42 12/10/17 07:42 12/10/17 07:42 Laboratory Results 12/09/17 05:36 12/10/17 05:25 12/09/17 12/10/17 12/11/17 05:59 05:59 05:59 Intake Total 858 350 Output Total 500 670 Balance 358 -320 PT 14.7 SEC (12.0-15.0) 12/05/17 05:34 INR 1.13 (0.83-1.16) 12/05/17 05:34 Physical Exam - Physical Exam General Appearance: alert Respiratory: rales, wheezing, No rhonchi Cardiac/Chest: regular rate, rhythm, edema, No friction rub Abdomen: normal bowel sounds, non-tender, other (edema) Extremities: pedal edema Neuro/Psych: alert, normal mood/affect, oriented x 3 ICD10 Worksheet Patient Problems: Problems Problem Status Onset Anemia Acute Hypoxia Acute Multifocal pneumonia Acute Pleural effusion Acute Pneumonia Acute Volume overload Acute
[2017-12-10] MEDS: INSULIN GLARGINE 100 UNITS/ML UNIT SC SCH (08:37)
[2017-12-10] MEDS: SODIUM CL NASAL 45 ML BTL EACHNARE SCH (08:38)
[2017-12-10] MEDS: buPROPion XL 150 MG TAB PO SCH (08:38)
[2017-12-10] MEDS: CALCIUM ACETATE 667 MG CAP PO SCH ×2 (08:38→12:20)
[2017-12-10] MEDS: LIDOCAINE 5% 1 EA PATCH TD SCH ×2 (08:38→12:25)
[2017-12-10] MEDS: ACETAMINOPHEN 325 MG TAB PO PRN ×2 (08:38→13:45)
[2017-12-10] MEDS: FUROSEMIDE 40 MG TAB PO SCH ×2 (08:39→14:57)
[2017-12-10] MEDS: NYSTATIN POWDER 15 GM BTL TP SCH (08:39)
--- NOTE | 2017-12-10 13:25 | PCMIDPN ---
Assessment/Plan: # MSSA bacteremia and necrotizing left-sided PNA. CT showed B pleural effusions , no abscess. Lung function stable to improved with less o2 requirements, now down to 1L and walking off O2 --stop date antibiotics is 12/16 (total 7 weeks) --when discharged can switch to cefazolin 2gm three times weekly after HD and DC PICC line --give dose cefazolin 1gm IV before dc. DC PICC at discharge # Renal insufficiency, nephrotic syndrome post infectious GN On HD now, greatly appreciate renal involvement # Rash to nafcillin: resolved, added to allergy list Microbiology HIV testing and QuantiFERON negative at outside hospital 11/10 blood cultures (2) neg 11/10 sputum culture: Bridgett 11/18 pleural fluid : Neg 10/24 blood cx 10/29 : MSSA clinda 0.25, levoflox 0.12, oxacillin 0.25, bactrim < 10 (S), ceftriaxone (S) Medication cefazolin 2gm IV qd, #29 Subjective: doing ok, still fatigued. Feeling nervous about dc Objective: Vital Signs Temp Pulse Resp BP Pulse Ox 36.8 C 95 18 142/97 H 96 12/10/17 07:42 12/10/17 07:42 12/10/17 07:42 12/10/17 07:42 12/10/17 07:42 Laboratory Results 12/09/17 05:36 12/10/17 05:25 12/09/17 12/10/17 12/11/17 05:59 05:59 05:59 Intake Total 858 350 Output Total 500 670 Balance 358 -320 - Physical Exam General Appearance: alert, no apparent distress, non-toxic Respiratory: crackles (L mid lung field), other (decreased bs bases), No accessory muscle use Cardiac/Chest: regular rate, rhythm Extremities: No pedal edema Skin: pallor, No rash Neuro/Psych: alert, normal mood/affect, oriented x 3 - Line/s RUE PICC Lines: No drainage, No erythema Smith Lines: other (R chest wasll), No drainage, No erythema - Time Spent With Patient Time Spent with Patient: greater than 35 minutes Time Spent with Patient: Greater than 35 minutes spent on this patients care, greater than 50% of time spent counseling, educating, and coordinating care regarding the above mentioned plan. ICD10 Worksheet Patient Problems: Problems Problem Status Onset Anemia Acute Hypoxia Acute Multifocal pneumonia Acute Pleural effusion Acute Pneumonia Acute Volume overload Acute
--- NOTE | 2017-12-10 13:28 | PDIAF ---
- Diagnosis Diagnosis: MSSA L sided necrotizing PNA Code Status: Full Code - Medication Management Discharge Medications: Medications to Continue on Transfer Acetaminophen [Tylenol 325mg (*)] 650 mg PO Q6 PRN 11/10/17 [Last Taken Unknown] Famotidine [Pepcid 20 MG (*)] 20 mg PO DAILY 11/10/17 [Last Taken 11/09/17 08:00 ] Herbals/Supplements -Info Only 1 ea PO DAILY 11/10/17 [Last Taken 11/09/17 08:00 ] Insulin Aspart [novoLOG] 6 - 10 unit SQ ACHS 11/10/17 [Last Taken 11/09/17 18:30 ] Insulin Detemir [Levemir] 20 unit SQ DAILY 11/10/17 [Last Taken 11/09/17 08:00] traZODone [traZODONE 50MG (*)] 50 mg PO HS 11/10/17 [Last Taken 11/09/17 21:00] Snf Antibiotics: cefazolin 2gm after HD on MWF Pattern Room Attendant Antibiotic Stop Date: 12/16/17 Discharge Medications: Refer to the Discharge Home Medication list for PRN reason. PICC Care - Routine: Yes - Labs/Radiology CBC w/diff Date: 12/16/17 (weekly saturday) CMP Date: 12/16/17 (weekly saturday) Call or Fax Lab and Imaging Results to: Kaleigh Mccord MD [phone] - Follow Up Care Current Providers and Referrals: Houston Motta MD [Medical Doctor] - follow up in 2 weeks Jamel Whitlock DO [Doctor of Osteopathy] - 3 days of d/c SNF/Rehab (please establish care w/ PCP) Patient,NotPresent [Unknown] - As per Instructions Kaleigh Mccord MD [Medical Doctor] - 12/17/17 1:30 pm
--- NOTE | 2017-12-10 14:29 | PDIAF ---
- Diagnosis Diagnosis: MSSA L sided necrotizing PNA Code Status: Full Code - Medication Management Discharge Medications: Medications to Continue on Transfer traZODone [traZODONE 50MG (*)] 50 mg PO HS 11/10/17 [Last Taken 11/09/17 21:00] Acetaminophen [Tylenol 325mg (*)] 650 mg PO Q4HRS PRN tab 12/10/17 [Last Taken Unknown] Calcium Acetate [Phoslo (*)] 667 mg PO TIDMEAL cap 12/10/17 [Last Taken Unknown ] Epoetin Pernell [Procrit 46539 UNIT/ML (*)] 10,000 unit SC Q7D vial 12/10/17 [ Last Taken Unknown] Furosemide [Lasix 40 MG (*)] 80 mg PO BID@0900,1500 tab 12/10/17 [Last Taken Unknown] Insulin Glargine [Lantus Syringe] 12 units SC DAILY unit 12/10/17 [Last Taken Unknown] Insulin Lispro [HumaLOG LISPRO] 0 unit SC TIDMEAL unit 12/10/17 [Last Taken Unknown] Levothyroxine [Synthroid 50 mcg (*)] 50 mcg PO DAILY AT 6AM tab 12/10/17 [Last Taken Unknown] Lidocaine 5% [Lidoderm 5% Patch (*)] 1 ea TD DAILY patch 12/10/17 [Last Taken Unknown] Patch Removal 1 ea TD DAILY21 patch 12/10/17 [Last Taken Unknown] Polyethylene Glycol 3350 [Miralax 17 gm (*)] 17 gm PO DAILY PRN pkt 12/10/17 [ Last Taken Unknown] Sodium Cl Nasal [[place] (*)] 1 spray EACHNARE BID btl 12/10/17 [Last Taken Unknown] buPROPion XL [Wellbutrin 150mg XL] 150 mg PO DAILY tab 12/10/17 [Last Taken Unknown] Cement Finisher Antibiotics: cefazolin 2gm after HD on MWF Cement Finisher Antibiotic Stop Date: 12/16/17 Discharge Medications: Refer to the Discharge Home Medication list for PRN reason. PICC Care - Routine: Yes - Orders Services needed: Registered Nurse, Certified Laborer [place], Master Gold Leaf Layer (Dialysis MWF at [facility], Dr. Molina. Chair time 11:40-4: 15), Physical Therapy, Occupational Therapy Diet Recommendation: potassium restricted Diet Texture: Regular Texture Diet - Labs/Radiology CBC w/diff Date: 12/16/17 (weekly saturday) CMP Date: 12/16/17 (weekly saturday) Call or Fax Lab and Imaging Results to: Kaleigh Mccord MD [phone] - Follow Up Care Current Providers and Referrals: Houston Motta MD [Medical Doctor] - follow up in 2 weeks Jamel Whitlock DO [Doctor of Osteopathy] - 3 days of d/c SNF/Rehab (please establish care w/ PCP) Kaleigh Mccord MD [Medical Doctor] - 12/17/17 1:30 pm Patient,NotPresent [Unknown] - As per Instructions
--- NOTE | 2017-12-10 14:48 | PDIAF ---
- Diagnosis Diagnosis: MSSA L sided necrotizing PNA Code Status: Full Code - Medication Management Discharge Medications: Medications to Continue on Transfer traZODone [traZODONE 50MG (*)] 50 mg PO HS 11/10/17 [Last Taken 11/09/17 21:00] Acetaminophen [Tylenol 325mg (*)] 650 mg PO Q4HRS PRN tab 12/10/17 [Last Taken Unknown] Calcium Acetate [Phoslo (*)] 667 mg PO TIDMEAL cap 12/10/17 [Last Taken Unknown ] Epoetin Pernell [Procrit 13930 UNIT/ML (*)] 10,000 unit SC Q7D vial 12/10/17 [ Last Taken Unknown] Furosemide [Lasix 40 MG (*)] 80 mg PO BID@0900,1500 tab 12/10/17 [Last Taken Unknown] HYDROmorphone HCL [Dilaudid 2 mg (*)] 2 - 4 mg PO Q4HRS PRN #30 tab 12/10/17 [ Last Taken Unknown] Insulin Glargine [Lantus Syringe] 12 units SC DAILY unit 12/10/17 [Last Taken Unknown] Insulin Lispro [HumaLOG LISPRO] 0 unit SC TIDMEAL unit 12/10/17 [Last Taken Unknown] Levothyroxine [Synthroid 50 mcg (*)] 50 mcg PO DAILY AT 6AM tab 12/10/17 [Last Taken Unknown] Lidocaine 5% [Lidoderm 5% Patch (*)] 1 ea TD DAILY patch 12/10/17 [Last Taken Unknown] Patch Removal 1 ea TD DAILY21 patch 12/10/17 [Last Taken Unknown] Polyethylene Glycol 3350 [Miralax 17 gm (*)] 17 gm PO DAILY PRN pkt 12/10/17 [ Last Taken Unknown] Sodium Cl Nasal [[place] (*)] 1 spray EACHNARE BID btl 12/10/17 [Last Taken Unknown] buPROPion XL [Wellbutrin 150mg XL] 150 mg PO DAILY tab 12/10/17 [Last Taken Unknown] Coin Dealer Antibiotics: cefazolin 2gm after HD on MWF Halfway Antibiotic Stop Date: 12/16/17 Discharge Medications: Refer to the Discharge Home Medication list for PRN reason. PICC Care - Routine: Yes - Orders Services needed: Registered Nurse, Certified Technology Sales Consultant, Master Track Announcer (Dialysis MWF at [facility], Dr. Molina. Chair time 11:40-4: 15), Physical Therapy, Occupational Therapy Diet Recommendation: potassium restricted Diet Texture: Regular Texture Diet - Labs/Radiology CBC w/diff Date: 12/16/17 (weekly saturday) CMP Date: 12/16/17 (weekly saturday) Other Lab Name, Date and Time: [facility] 12/30/2017 Call or Fax Lab and Imaging Results to: Kaleigh Mccord MD [phone] - Follow Up Care Current Providers and Referrals: Houston Motta MD [Medical Doctor] - follow up in 2 weeks Jamel Whitlock DO [Doctor of Osteopathy] - 3 days of d/c SNF/Rehab (please establish care w/ PCP) Kaleigh Mccord MD [Medical Doctor] - 12/17/17 1:30 pm Patient,NotPresent [Unknown] - As per Instructions
--- NOTE | 2017-12-10 14:56 | ASMTCMCOM ---
TOR Note TOR Note Notes: Patient to d/c to [facility] today. table games dual rate supervisor time is 5:30. Gave patient's mother information guide on finding housing in [place]. Spoke with Ame to let her know patient will be going for dialysis with [facility] on Saturday, Saturday, and Saturday with a chair time of 11:40AM to 4:15 PM. Transfer of Care summary faxed to [facility]. No further d/c needs. TOR avaialnav if needs arise. Date Signed: 12/10/2017 02:55 PM Electronically Signed By:Verenice Pratt LCSW
--- NOTE | 2017-12-10 15:08 | GDS ---
[f rep st] DISCHARGE SUMMARY DIAGNOSES: 1. Infection related glomerulonephritis. 2. Methicillin sensitive Staphylococcus aureus bacteremia and necrotizing left-sided pneumonia. 3. 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 4. Renal insufficiency, on dialysis. 5. Rash to nafcillin. 6. Diabetes. 7. Rib fracture due to coughing with chest pain. 8. Chronic back pain with a history of sciatica and neuropathy. CONSULTATIONS: Include: 1. Infectious Disease. He will be followed by Dr. Kaleigh Mccord. 2. Nephrology, Dr. Pedro Payne. 3. Pulmonology. 4. Critical Care. PROCEDURES DONE: 1. Chest and thoracic angiogram 11/10/2017: Extensive bilateral pulmonary consolidation, most sever e in the left upper lobe. 2. Echocardiogram 11/10/2017: Normal LV function with an EF of 74%. Normal RV function. 3. Lower extremity Dopplers: Negative for DVT. 4. Followup chest CT on 11/12/2017: Stable dense consolidation, moderate bilateral pleural effusion s. 5. Repeat lower extremity Dopplers: Negative for DVT again on 11/14/2017. 6. Renal ultrasound: Moderate postvoid residual with moderate bilateral pleural effusions. 7. Ultrasound-guided thoracentesis on 11/18/2017: Left side negative for infection. 8. CT-guided renal biopsy. Findings most consistent with postinfectious GN. 9. Central line placement. 10. Repeat echocardiogram on 12/03/2017: Again showing normal LV function, moderately dilated right ventricle with reduced ventricular function. 11. 12/03/2017, repeat lower extremity Dopplers. 12. V/Q scan indeterminate for PE. 13. Followup CT scan on 12/09/2017 showing no cavitary lesion or evolving pulmonary abscess, gradual ly improving multifocal airspace consolidation. HOSPITAL COURSE: The patient is a 37-year-old initially admitted with a history of type 1 brittle di abetes, who was recently diagnosed with multifocal pneumonia, sepsis and respiratory failure. He was treated with IV antibiotics, blood cultures were positive for MSSA and started on nafcillin. He was treated at [facility] and, at the time of discharge, he had gained significant weight, and transferred to [facility] for further evaluation and treatment. Upon arriving to [facility], he had shortness of breath and occluded PICC line, and was transferred directly to [facility], at which time he still had evidence of multifocal pneumonia, acute respiratory failure, bilatera l pleural effusions, anasarca, and mild renal insufficiency. He was admitted to the intensive care unit, treated with IV antibiotics and supportive care. His meme al function did worsen with increasing creatinine to a peak at 3.9. He had poor urine output at this time. Nephrology was consulted and eventually led to a biopsy, which revealed likely postinfectious glomerulonephritis and subsequent nephrotic syndrome and anasarca. His renal function was quite poo r, so he had to undergo dialysis throughout most of his hospitalization mainly for control of his flu id balance. Despite this, his renal function remained poor and he will need ongoing outpatient dialy sis. Regarding his respiratory status, he did get slightly worse. Evaluation for PE was done and the find ings were inconclusive. But, given his history of a large pneumonia and no evidence of DVT, it was f elt he likely did not have an acute pulmonary embolism, and over the course of his hospitalization, h is respiratory status improved markedly where he was saturating over 90% on room air. He will have o ngoing treatment with IV antibiotics as an outpatient at dialysis to complete treatment for this MSSA bacteremia and pneumonia. Other issues found during his hospitalization included hypothyroidism, and he was started on a low-do se of Synthroid. This needs to have a followup TSH done in a few weeks. His diabetes was controlled with long-acting and short-acting insulin. This may need to be adjusted as an outpatient. He typically was on 20 units of Levemir and was on 12 units of glargine at the renetta e of discharge. He continues to have a large amount anasarca and edema. This has been difficult to control and is co ntrolled primarily with dialysis. He will resume outpatient dialysis at the dialysis center of [facility] on Saturday, Saturday, Saturday with a chair time of 11:40 through 4:15. Dr. Mccord will continue t o follow him from [facility]. Dr. Payne is a fisher at the dialysis clinic, and they will coordinate care and length of therapy for the antibiotics, depending on his clinical status. Unfortunately, he has not resumed any significant improvement in his renal function during his hospit alization. CONDITION ON DISCHARGE: Fair. He is 94% on room air. Blood pressure 150/97, heart rate 95. He is alert and oriented. Lungs are relatively clear with diminished breath sounds at the bases due to ple ural effusions. Heart is regular. Abdomen is soft. He does have a massive amount of edema still pr esent and a large amount of scrotal swelling. DISCHARGE MEDICATIONS: Please see discharge medication form. FOLLOWUP: He will be discharged to [facility] for ongoing rehab. He will need 1-2 more weeks of IV Ancef to be given during dialysis, and will need ongoing dialysis to be determined depending on hi s kidney function. He will also have follow up with Dr. Nael Motta, his primary care provider, for his thyroid function tests. I will go ahead and order a TSH in 3 weeks. Total time spent with the patient on the day of discharge and coordination of care is 60 minutes. /[id number]/MODL
[2017-12-10 16:11] VITALS: PULSE 92; O2SAT 95
[2017-12-10 17:12] VITALS: BP 151/102; RESP 14; TEMP 98
--- NOTE | 2017-12-11 14:54 | ASDISCHSUM ---
Discharge Information Plan Status:SNF Medically Cleared to Leave: Discharge Date:12/10/2017 05:25 PM D/C Disposition:[facility] Facility ADT D/C Disposition:[facility] Facility Projected Discharge Date:12/06/2017 11:00 AM Transportation at D/C:Wheelchair Van Discharge Delay Reason: Follow-Up Date:12/06/2017 11:00 AM Discharge Slot: Final Diagnosis: Placement Information Referral Type:*Fdc/SNF Referral ID:[id number] [place] [facility] Address 1:[address] Phone Number: Address 2: Fax Number: [facility]:[place] Selection Factors: State:[place] Referral Type:Correction Acute [facility] Referral ID:[id number] Provider Name: Address 1: Phone Number: Address 2: Fax Number: City: Selection Factors: State: Referral Type:*Fdc/SNF Referral ID:[id number] Provider Name: Address 1: Phone Number: Address 2: Fax Number: [facility]: Selection Factors: State: Patient Contact Information Contact Name:SHAYAN Relationship:Mother Address: Work Phone: City: [facility] Phone: [facility] Code: Email: Financial Information Financial Class:Medicaid Primary Plan Desc:[place] Primary Plan Number:[id number] Secondary Plan Desc: Secondary Plan Number: Assessment Information [facility] CM Progress Note CM Note CM Note Notes: 36 year old male admitted after being discharged from [facility] and going to [facility] for rehab and continued care. Sent to [facility] for Hypoxia, PNA, Bilat PE, Hyperkalemia, Anemia. Patient is very weak. CM to follow for discharge, will probably return to [facility]. Date Signed: 11/10/2017 06:03 PM Electronically Signed By:Katia Lopez LCSW [facility] CM Progress Note CM Note CM Note Notes: Chart reviewed. 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 I will ask the CM tomorrow to provide some direction for him. He is planning to dc sto upon discharge unless he's had significant improvment of his condition, CM to follow. Date Signed: 11/12/2017 05:19 PM Electronically Signed By:Rika Tobin RN [facility] CM Progress Note CM Note CM Note Notes: Today Emily met w/ Pt. regarding his need to resolve an issue with a laptop. Pt. states that he plans to start [employer] soon and needs to order a laptop and then have it picked up for him. In the end, Pt. was able to resolve the issue on his own. Called his mother in [place]. She was able to have her [place]-based friend grain picker the laptop for Pt. tomorrow at the [facility]. Pt. pleased. States no further needs and he is good with going back to [place] at d/c. Updated Ame from on Pt.'s medical issues. Plan: [facility] when ready. Date Signed: 11/14/2017 03:00 PM Electronically Signed By:Nadine Jackson LCSW [facility] CM Progress Note CM Note CM Note Notes: The hospitalist ordered inpatient rehab eval which has been done previously. He had been at prior to admission. Likely disposition with be to return to SNF when medically cleared for dc. CM to follow. Date Signed: 11/17/2017 12:07 PM Electronically Signed By:Rika Tobin RN [facility] CM Progress Note CM Note CM Note Notes: CM spoke w/ Dr. Morales regarding d/c POC. Dr. Morales is recommending LTAC for pt. CM met w/ pt for dispo planning. Pt is agreeable to going to LTAC. Referrals made to [facility] and [facility]. Pt reports that his mother is planning to moving to [place] from [place] 01/26/18. Pt plans on living with his mom once she is back in [place]. [facility] is denying pt at this time. [facility] is closing referral and will consider taking him if he does not have placement. CM to follow. Plan: SNF Date Signed: 11/19/2017 02:07 PM Electronically Signed By:AUBREE Allen [facility] CM Progress Note CM Note CM Note Notes: SWer let Pt. know today that both LTACs declined him. Pt. good with plan to d/c to [facility]. Confirmed for him that while he must stay 30-days, he can stay longer than that if he is eligible. Pt. asked SWer about federal disability benefits. Discussed the issues broadly, emphasizing that Pt. has to anticipate that he can no longer work to qualify for SSI/SSDI benefits. At Pt's request, provided four (4) resources for agencies that assist Pt. in applying for disability benefits. Pt. grateful. Plan: D/c to [facility] when ready. Date Signed: 11/20/2017 12:12 PM Electronically Signed By:Nadine Jackson LCSW [facility] TOR Progress Note CM Note CM Note Notes: Pt. still ill and having medical work-ups per MD notes. SWer sent updates to [facility] via [employer]. Left mady jeronimo for Ame at to let her know. Plan: [facility] when ready. Date Signed: 11/22/2017 02:37 PM Electronically Signed By:Nadine Jackson LCSW [facility] CM Progress Note CM Note CM Note Notes: CM spoke w/ GISELL Haley regarding d/c POC. The plan remains for pt to d/c to [facility] when medically stable. Updates sent to [facility]. CM to follow. Plan: [facility] Date Signed: 11/25/2017 12:19 PM Electronically Signed By:AUBREE Allen [facility] Progress Note CM Note CM Note Notes: Patient has high-level medical complexity with a high risk of worsening morbidity and/or mortality. [facility] remains the d/c plan when patient has medically cleared. CM will follow. Date Signed: 11/28/2017 01:20 PM Electronically Signed By:Verenice Pratt LCSW [facility] CM Progress Note CM Note CM Note Notes: Spoke with patient and his mother to answer questions and review resources. So far, LTAC'S have turned patient down. There are some new issues with SNF placement we will have to work out with [facility]. There are questions as to whether [facility] can take patient if he needs dialysis as they do not get paid for taking patient to outpatient dialysis appointments. In addition, [facility] will want patient to have a plan in place for when he has completed the 30 day rehab program. Patient's mother Jodee states she is moving to [place] from [place] and plans to secure them an apartment. She however, is in the process of making these changes. She plans to apply for disability for [employer] and has a friend who can help her with the process. CM to talk more with [facility] to work out any barriers to placement. CM will follow. Date Signed: 11/29/2017 05:35 PM Electronically Signed By:Verenice Pratt LCSW [facility] CM Progress Note CM Note CM Note Notes: Spoke with patient and his mother who had more questions. Ame from [facility] was out of the office today but I will talk to her tomorrow to see if there are any other solutions to the dialysis reimbursement issues. [facility] may consider patient since they have a dialysis center right across the street from their facility. Continue search for rehab facility for patient. CM will follow. Date Signed: 12/02/2017 05:10 PM Electronically Signed By:Verenice Pratt LCSW [facility] CM Progress Note CM Note CM Note Notes: Spoke with Ame at [facility] who states they can manage patient's dialysis needs and transport patient to his treatments. Informed patient we had removed barriers and he will be able to do his rehab with [facility]. Patient will let his mother know. Informed Dr. Platt patient has d/c plan in place when he is medically stable. CM will follow. Date Signed: 12/03/2017 11:42 AM Electronically Signed By:Verenice Pratt LCSW [facility] TOR Progress Note CM Note TOR Note Notes: Dr. Squires, Nephrology would like patient to complete his dialysis with [facility]. Ame with [facility] states they will be able to accomodate this request. Patient will likely d/c on Saturday after a dialysis treatment which will make it so he won't be in need of another treament until Saturday. Patient has expressed feeling depressed as a result of his kidney being damaged. Michelle Tan will meet with patient today and CM will follow up. [facility] sent updates for patient. CM will follow. Date Signed: 12/04/2017 12:24 PM Electronically Signed By:Verenice Pratt LCSW [facility] TOR Progress Note CM Note CM Note Notes: Dr. Squires called back to request we make arrangements for patient to go to [facility]. Referral information was faxed to them. Spoke with Ame at [facility] who states they can provide transport to the appointments and this will not be a problem. [facility] continues to be the d/c plan. CM will follow. Date Signed: 12/04/2017 06:04 PM Electronically Signed By:Verenice Pratt LCSW [facility] TOR Progress Note CM Note CM Note Notes: TOR spoke w/ GISELL Purvis regarding d/c POC. Pt had extra dialysis yesterday and will have dialysis today. Pt is normally scheduled to have dialysis MWF. Pts current potassium level is low. The plan remains the same. Pt will d/c to [facility] when medically stable. Updates sent to [facility]. CM to follow. Plan: [facility] Date Signed: 12/06/2017 11:43 AM Electronically Signed By:AUBREE Allen [facility] TOR Progress Note CM Note TOR Note Notes: Spoke with patient today about his concerns regarding placement in SNF rehab. Reassured patient [facility] can get him to his dialysis appointments. Patient reports his mother has not been able to find housing here yet. She is still in [place]. [facility] remains the d/c plan. CM will follow. Date Signed: 12/09/2017 10:14 AM Electronically Signed By:Verenice Pratt LCSW [facility] TOR Progress Note TOR Guerin CM Note Notes: Patient to d/c to [facility] today. solar panel installation supervisor time is 5:30. Gave patient's mother information guide on finding housing in [place]. Spoke with Ame to let her know patient will be going for dialysis with [facility] on Saturday, Saturday, and Saturday with a chair time of 11:40AM to 4:15 PM. Transfer of Care summary faxed to [facility]. No further d/c needs. CM avaialbe if needs arise. Date Signed: 12/10/2017 02:55 PM Electronically Signed By:Verenice Pratt LCSW Intervention Information
== END 2017-12-10 17:25 | DRG 177 ==
LOC: F2N 03:27 → F3E 11-11 13:20
PROVIDERS: ADMIT Family Medicine; ATTEND Internal Medicine
PROC: 0W9B3ZZ Drainage of Left Pleural Cavity, Percutaneous Approach (ICD-10-PCS; principal; 2017-11-18)
PROC: 30243N1 Transfusion of Nonautologous Red Blood Cells into Central Vein, Percutaneous Approach (ICD-10-PCS; 2017-11-21)
PROC: 0TB03ZX Excision of Right Kidney, Percutaneous Approach, Diagnostic (ICD-10-PCS; 2017-11-22)
PROC: 02HV33Z Insertion of Infusion Device into Superior Vena Cava, Percutaneous Approach (ICD-10-PCS; 2017-11-27)
PROC: 5A1D70Z Performance of Urinary Filtration, Intermittent, Less than 6 Hours Per Day (ICD-10-PCS; 2017-11-27)
PROC: 02PY33Z Removal of Infusion Device from Great Vessel, Percutaneous Approach (ICD-10-PCS; 2017-12-05)
PROC: 0JH63XZ Insertion of Tunneled Vascular Access Device into Chest Subcutaneous Tissue and Fascia, Percutaneous Approach (ICD-10-PCS; 2017-12-05)
PROC: 02H633Z Insertion of Infusion Device into Right Atrium, Percutaneous Approach (ICD-10-PCS; 2017-12-05)
DX: J15.211 Pneumonia due to Methicillin susceptible Staphylococcus aureus (principal); J85.0 Gangrene and necrosis of lung; R78.81 Bacteremia; B95.61 Methicillin susceptible Staphylococcus aureus infection as the cause of diseases classified elsewhere; J96.01 Acute respiratory failure with hypoxia; N05.7 Unspecified nephritic syndrome with diffuse crescentic glomerulonephritis; N04.9 Nephrotic syndrome with unspecified morphologic changes; J90 Pleural effusion, not elsewhere classified; N18.9 Chronic kidney disease, unspecified; E43 Unspecified severe protein-calorie malnutrition; S22.31XA Fracture of one rib, right side, initial encounter for closed fracture; X50.9XXA Other and unspecified overexertion or strenuous movements or postures, initial encounter; Y92.239 Unspecified place in hospital as the place of occurrence of the external cause; N17.9 Acute kidney failure, unspecified; N99.89 Other postprocedural complications and disorders of genitourinary system; S37.90XA Unspecified injury of unspecified urinary and pelvic organ, initial encounter; E87.1 Hypo-osmolality and hyponatremia; L27.0 Generalized skin eruption due to drugs and medicaments taken internally; T36.0X5A Adverse effect of penicillins, initial encounter; E10.21 Type 1 diabetes mellitus with diabetic nephropathy; E10.22 Type 1 diabetes mellitus with diabetic chronic kidney disease; E10.65 Type 1 diabetes mellitus with hyperglycemia; G62.9 Polyneuropathy, unspecified; M54.40 Lumbago with sciatica, unspecified side; E03.9 Hypothyroidism, unspecified; D63.8 Anemia in other chronic diseases classified elsewhere; E87.70 Fluid overload, unspecified; E87.5 Hyperkalemia; E66.9 Obesity, unspecified; E83.39 Other disorders of phosphorus metabolism; Z68.32 Body mass index [BMI] 32.0-32.9, adult; Z99.2 Dependence on renal dialysis; Z98.1 Arthrodesis status; Z23 Encounter for immunization
CPT/HCPCS: 83010-90; 83516-90; 83520-90; 84134-90; 84481-90; 86704-90; 96365; 97110-GO; 97110-GP; 97116-GP; 97161-GP; 97166-GO; 97530-GO; 97530-GP; 97535-GO; A9540; A9558; C1750; G0009; G0257; J0610; J0690; J0692; J0885; J1170; J1644; J1650; J1815; J1885; J1940; J2175; J2250; J2310; J2405; J2997; J3010; J3370; J3475; J7613; P9016; P9047; Q9967

== ENCOUNTER 2017-12-28 18:37 | Emergency (ER) | payer MEDICAID ==
[2017-12-28 18:47] VITALS: RESP 16
--- NOTE | 2017-12-28 18:49 | EDPHY ---
H & P Time Seen by Provider: 12/28/17 18:38 HPI/ROS: CHIEF COMPLAINT: Patient has none HISTORY OF PRESENT ILLNESS: This is a 37-year-old male, resident of [facility] since mid October of this year following a prolonged hospitalization for pneumonia and sepsis. During his hospitalization he had an post infection glomerulonephritis and is now on thrice weekly dialysis. He is an insulin- dependent diabetic. He comes to the emergency room tonight by ambulance after he was found to have a temperature of 100.6 degrees at [facility]. The patient states that he feels fine. He does not think that he has a fever. He was chilly and had some blankets around him before his temperature was taken. He was not given any thing to treat fever. REVIEW OF SYSTEMS: A ten point review of systems was performed and is negative with the exception of the items mentioned in the HPI. Past medical history: 1. Insulin-dependent diabetes 2. MSSA bacteremia and necrotizing left-sided pneumonia for which he was hospitalized for a month 3. Postinfectious glomerular nephritis 4. End-stage renal disease on dialysis 5. Chronic back pain Past surgical history: Dialysis port Family history: Father with a history of lymphoma and type 1 diabetes. Social history: He currently resides at [facility]. He does not use tobacco products, alcohol, or illicit drugs. He has used marijuana on occasion. General Appearance: Alert. Vital signs reviewed. Temperature 36.8 degrees on arrival. Eyes: Pupils equal and round, no conjunctival injection, no discharge. Anicteric. ENT, Mouth: Mucous membranes are moist, no oropharyngeal erythema or edema. Neck: No lymphadenopathy, supple. Respiratory: Lungs with crackles left upper. Good air exchange otherwise. Nasal cannula oxygen in place. Cardiovascular: Regular rate and rhythm; no murmur, rub, or gallop. Gastrointestinal: Abdomen is obese, soft and nontender, no masses or organomegaly, bowel sounds normal. Skin: Warm and dry, no rashes on exposed skin, normal color. Back: Nontender to palpation over the thoracolumbar spine. No CVAT. Extremities: Bilateral lower extremity pitting edema to the knees. Neurological: Alert and oriented to person, place, year, and situation.. Moving all four extremities easily and equally. NENA. EOMI. Facial expressions symmetric. Tongue midline. Moving all 4 extremities spontaneously and to command. Psychiatric: Normal affect. - Medical/Surgical History Hx Asthma: No Hx Chronic Respiratory Disease: No Hx Diabetes: Yes Hx Cardiac Disease: No Hx Renal Disease: No Hx Cirrhosis: No Hx Alcoholism: No Hx HIV/AIDS: No Hx Splenectomy or Spleen Trauma: No Other PMH: CHF, DM1, - Social History Smoking Status: Never smoked Constitutional: Initial Vital Signs Temperature (C) 36.8 C 12/28/17 18:37 Heart Rate 77 12/28/17 18:37 Respiratory Rate 16 12/28/17 18:37 Blood Pressure 128/81 H 12/28/17 18:37 O2 Sat (%) 99 12/28/17 18:37 O2 (L/minute) 4 Allergies/Adverse Reactions: nafcillin Allergy (Verified 11/10/17 01:07) Penicillins Allergy (Verified 11/10/17 01:07) Home Medications: Medication Instructions Recorded traZODone [traZODONE 50MG (*)] 50 mg PO HS 11/10/17 Acetaminophen [Tylenol 325mg (*)] 650 mg PO Q4HRS PRN tab 12/10/17 Calcium Acetate [Phoslo (*)] 667 mg PO TIDMEAL cap 12/10/17 Epoetin Pernell [Procrit 15740 10,000 unit SC Q7D vial 12/10/17 UNIT/ML (*)] Furosemide [Lasix 40 MG (*)] 80 mg PO BID@0900,1500 tab 12/10/17 HYDROmorphone HCL [Dilaudid 2 mg 2 - 4 mg PO Q4HRS PRN #30 tab 12/10/17 (*)] Insulin Glargine [Lantus Syringe] 12 units SC DAILY unit 12/10/17 Insulin Lispro [HumaLOG LISPRO] 0 unit SC TIDMEAL unit 12/10/17 Levothyroxine [Synthroid 50 mcg 50 mcg PO DAILY AT 6AM tab 12/10/17 (*)] Lidocaine 5% [Lidoderm 5% Patch] 1 ea TD DAILY patch 12/10/17 Patch Removal 1 ea TD DAILY21 patch 12/10/17 Polyethylene Glycol 3350 [Miralax 17 gm PO DAILY PRN pkt 12/10/17 17 gm (*)] Sodium Cl Nasal [[place] (*)] 1 spray EACHNARE BID btl 12/10/17 buPROPion XL [Wellbutrin 150mg XL] 150 mg PO DAILY tab 12/10/17 Medical Decision Making ED Course/Re-evaluation: Patient is afebrile on arrival in the emergency department. He did not receive antipyretics. He has absolutely no complaints. Nursing staff contacted [facility] and they have agreed that this patient can return to their facility. Transportation is being arranged. Differential Diagnosis: Fever in adults including but not limited to pneumonia, urinary tract infection , viral syndrome, and influenza. This patient did not actually have a fever at the time of my evaluation. Departure - Departure Disposition: Home, Routine, Self-Care Clinical Impression: Fever Qualifiers: Fever type: unspecified Qualified Code(s): R50.9 - Fever, unspecified Condition: Good Instructions: Fever in Adults (ED) Additional Instructions: You do not have a fever here in the emergency department. As you have told me, you have no new complaints or concerns. If you develop fever or symptoms of illness feel free to return for another evaluation. Referrals: Kaleigh Mccord MD [Medical Doctor] - As per Instructions
[2017-12-28 20:39] VITALS: BP 134/90; PULSE 75; TEMP 98.1; O2SAT 100
== END 2017-12-28 20:53 | disposition home or self-care (01) ==
LOC: EDUNIT#
DX: R50.9 Fever, unspecified (principal); E10.9 Type 1 diabetes mellitus without complications; I50.9 Heart failure, unspecified; N18.6 End stage renal disease

== ENCOUNTER 2018-01-08 02:18 | Emergency (ER) | payer MEDICAID ==
--- NOTE | 2018-01-08 02:29 | EDPHY ---
H & P Time Seen by Provider: 01/08/18 02:20 HPI/ROS: Chief Complaint: Hypoglycemia HPI: 37-year-old male who is currently residing at [facility] recovering from an episode of necrotizing pneumonia and sepsis. Staff checked in this morning and noticed that his blood was in the 50s. They gave him IM glucagon. EMS was called. On arrival his blood sugar was in the 20s. They placed an IV and gave him an amp of D50. Repeat blood sugar was in the 112 per EMS. Patient is awake alert. Patient states that his blood sugars have been falling and not recently. He is currently getting Levemir 12 units at bedtime and is on a NovoLog sliding scale. Denies any recent illness. No fevers or chills. Otherwise been in his usual state health. No cough. ROS: 10 point Review of Systems is negative except as noted in the HPI. PMH: Type 1 diabetes, pneumonia, sepsis Social History: No smoking, no alcohol, no recreational drug use Family History: non-contributory Physical Exam: Gen: Awake, Alert, No Distress HEENT: Nose: no rhinorrhea Eyes: PERRLA, EOMI Mouth: Moist mucosa Neck: Supple, no JVD Chest: nontender, lungs clear to auscultation Heart: S1, S2 normal, no murmur Abd: Soft, non-tender, no guarding Back: no CVA tenderness, no midline tenderness Ext: no edema, non-tender Skin: no rash Neuro: CN II-XII intact, Sensation grossly intact, Strength 5/5 in bilateral upper and lower extremities - Medical/Surgical History Hx Asthma: No Hx Chronic Respiratory Disease: No Hx Diabetes: Yes Hx Cardiac Disease: No Hx Renal Disease: No Hx Cirrhosis: No Hx Alcoholism: No Hx HIV/AIDS: No Hx Splenectomy or Spleen Trauma: No Other PMH: CHF, DM1, - Social History Smoking Status: Never smoked Constitutional: Initial Vital Signs Temperature (C) 35.2 C L 01/08/18 02:36 Heart Rate 75 01/08/18 02:36 Respiratory Rate 20 01/08/18 02:36 Blood Pressure 119/79 01/08/18 02:36 O2 Sat (%) 92 01/08/18 02:36 O2 Delivery Mode Room Air Allergies/Adverse Reactions: nafcillin Allergy (Verified 11/10/17 01:07) Penicillins Allergy (Verified 11/10/17 01:07) Home Medications: Medication Instructions Recorded traZODone [traZODONE 50MG (*)] 50 mg PO HS 11/10/17 Acetaminophen [Tylenol 325mg (*)] 650 mg PO Q4HRS PRN tab 12/10/17 Calcium Acetate [Phoslo (*)] 667 mg PO TIDMEAL cap 12/10/17 Epoetin Pernell [Procrit 06989 10,000 unit SC Q7D vial 12/10/17 UNIT/ML (*)] Furosemide [Lasix 40 MG (*)] 80 mg PO BID@0900,1500 tab 12/10/17 HYDROmorphone HCL [Dilaudid 2 mg 2 - 4 mg PO Q4HRS PRN #30 tab 12/10/17 (*)] Insulin Glargine [Lantus Syringe] 12 units SC DAILY unit 12/10/17 Insulin Lispro [HumaLOG LISPRO] 0 unit SC TIDMEAL unit 12/10/17 Levothyroxine [Synthroid 50 mcg 50 mcg PO DAILY AT 6AM tab 12/10/17 (*)] Lidocaine 5% [Lidoderm 5% Patch] 1 ea TD DAILY patch 12/10/17 Patch Removal 1 ea TD DAILY21 patch 12/10/17 Polyethylene Glycol 3350 [Miralax 17 gm PO DAILY PRN pkt 12/10/17 17 gm (*)] Sodium Cl Nasal [[place] (*)] 1 spray EACHNARE BID btl 12/10/17 buPROPion XL [Wellbutrin 150mg XL] 150 mg PO DAILY tab 12/10/17 Medical Decision Making ED Course/Re-evaluation: Fingerstick blood sugar here is 108. Will give him a sandwich and recheck his blood sugar. Patient has eaten a sandwich blood sugar on recheck is 88. I wonder if there is some confusion in the insulin that he received. Patient will need continued glucose monitoring for the next several hours. I have discussed with Dr. Partida. He will admit to the [facility] floor for further evaluation. Patient states he does not want to stay in the hospital. He feels his blood sugars stable. Repeat blood sugar at 4:40 is 79. Patient is refusing admission was be transported back to [facility]. He feels that they will be able to monitor his blood sugars and treat him if necessary. Patient is awake alert and appropriate to make decisions. Will discharge him back to his [facility] facility at his request. - Data Points Laboratory Results: 01/08/18 01/08/18 03:58 02:24 POC Glucose 88 mg/dL mg/dL 108 mg/dL H mg/dL (70-100) (70-100) Point of Care Test Results: 01/08/18 01/08/18 02:24 03:58 POC Glucose 108 H 88 Departure - Departure Disposition: [facility] Inpatient Acute Clinical Impression: Hypoglycemia Condition: Fair
[2018-01-08 02:39] VITALS: RESP 20
[2018-01-08] MEDS ORDERED: ACETAMINOPHEN 325 MG TAB PO PRN (04:07)
[2018-01-08] MEDS ORDERED: ONDANSETRON DISINTEGRATING 4 MG TAB PO PRN (04:07)
[2018-01-08] MEDS ORDERED: ONDANSETRON 4 MG/2 ML VIAL IVP PRN (04:07)
[2018-01-08] MEDS ORDERED: D50W 25 GM/50 ML SYR IVP PRN (04:09)
[2018-01-08 05:39] VITALS: BP 131/105; PULSE 71; TEMP 96.8; O2SAT 99
== END 2018-01-08 05:15 | disposition still patient (30) ==
LOC: EDUNIT# → UNDOADMOB 04:07
DX: E10.649 Type 1 diabetes mellitus with hypoglycemia without coma (principal); I50.9 Heart failure, unspecified

== ENCOUNTER 2018-01-23 20:39 | Inpatient (IN) | payer MEDICAID ==
[2018-01-23] MEDS ORDERED: PROPOFOL/EMULSION 1,000 MG/100 ML BOTTLE IV ONE (20:53)
[2018-01-23] MEDS ORDERED: ETOMIDATE 40 MG/20 ML INJ IVP ONE (20:54)
[2018-01-23 20:55] LABS: PLATELET COUNT 161 10^3/uL (150-400)
[2018-01-23] MEDS ORDERED: SUCCINYLCHOLINE CHLORIDE 200 MG/10 ML SYR IVP ONE (20:55)
--- NOTE | 2018-01-23 21:00 | EDPHY ---
H & P Time Seen by Provider: 01/23/18 20:40 HPI/ROS: CHIEF COMPLAINT: Unresponsive, possible OD on inhalants Limitations: Unresponsive HISTORY OF PRESENT ILLNESS: The patient is a 37 y/o male found unresponsive without a pulse at [facility]. He was found unresponsive next to a can of industrial strength dusting spray containing difluoroethane. [facility] staff began CPR. On EMS arrival, he was pulseless and apneic. EMS administered epinephrine x 1 and regained pulses. EMS placed a alexis airway tube. According to [place] staff, pt had not been ill recently. REVIEW OF SYSTEMS: unable to obtain Past Medical/Surgical History: 1. End-stage renal disease, on dialysis 2. Type 1 diabetes 3. Pneumonia 4. Sepsis Social History: Lives in [facility], medicaid patient, nonsmoker Smoking Status: Never smoked Physical Exam: General Appearance: Unresponsive to painful stimuli, pale Eyes: Pupils equal and round, not reactive to light ENT, Mouth: Mucous membranes moist, Alexis airway in place Neck: Normal inspection Respiratory: Equal breath sounds bilaterally, some respiratory effort Cardiovascular: Regular tachycardia Gastrointestinal: Abdomen is distended Neurological: Unresponsive to painful stimuli, flaccid Skin: Warm and dry Extremities: edematous, pale Vascular: 2+ radial pulse Psychiatric: Unable to determine Constitutional: Initial Vital Signs Heart Rate 107 H 01/23/18 20:45 Respiratory Rate 22 H 01/23/18 20:45 Blood Pressure 135/117 H 01/23/18 20:45 O2 Sat (%) 100 01/23/18 20:45 O2 Delivery Mode Ventilator O2 (L/minute) 60 Allergies/Adverse Reactions: nafcillin Allergy (Verified 01/23/18 20:50) Penicillins Allergy (Verified 01/23/18 20:50) Home Medications: Medication Instructions Recorded traZODone [traZODONE 50MG (*)] 50 mg PO HS 11/10/17 Acetaminophen [Tylenol 325mg (*)] 650 mg PO Q4HRS PRN tab 12/10/17 Calcium Acetate [Phoslo (*)] 667 mg PO TIDMEAL cap 12/10/17 Epoetin Pernell [Procrit 66238 10,000 unit SC Q7D vial 12/10/17 UNIT/ML (*)] Furosemide [Lasix 40 MG (*)] 80 mg PO BID@0900,1500 tab 12/10/17 HYDROmorphone HCL [Dilaudid 2 mg 2 - 4 mg PO Q4HRS PRN #30 tab 12/10/17 (*)] Insulin Glargine [Lantus Syringe] 12 units SC DAILY unit 12/10/17 Insulin Lispro [HumaLOG LISPRO] 0 unit SC TIDMEAL unit 12/10/17 Levothyroxine [Synthroid 50 mcg 50 mcg PO DAILY AT 6AM tab 12/10/17 (*)] Lidocaine 5% [Lidoderm 5% Patch] 1 ea TD DAILY patch 12/10/17 Patch Removal 1 ea TD DAILY21 patch 12/10/17 Polyethylene Glycol 3350 [Miralax 17 gm PO DAILY PRN pkt 12/10/17 17 gm (*)] Sodium Cl Nasal [[place] (*)] 1 spray EACHNARE BID btl 12/10/17 buPROPion XL [Wellbutrin 150mg XL] 150 mg PO DAILY tab 12/10/17 Medical Decision Making - Diagnostics EKG Interpretation: EKG interpreted by me reveals sinus tachycardia, rate 106, QRS interval 0.11, significant artifact, low voltage in the frontal leads. Imaging Results: CT head: NAD CT chest: Bilateral pleural effusions, pulmonary edema Procedures: Procedure: Rapid sequence intubation. Because of the patient's medical condition, consent is implied. Indication for the procedure: airway protection, respiratory failure. The patient was pre-oxygenated with 100% oxygen by non-rebreather facemask. The following medications were given intravenously: etomidate 20mg and succinylcholine 100mg. Employing the video laryngoscope, the vocal chords were easily visualized. The patient was orally intubated under direct visualization with a 7.5 ETT. Tracheal intubation was confirmed by appropriate color change with the End Tidal CO2 detector. Capnography waveform was appropriate. Breath sounds were equal bilaterally without breath sounds over the stomach. Post-intubation O2 saturation was 100%. Post-intubation X-ray shows ETT in good position with the tip at the level of the clavicular heads. The procedure was performed by myself. The X-ray was interpreted by myself. ED Course/Re-evaluation: I met the patient on arrival to the ED at 8:39 PM. He was found unconscious next to a bottle of industrial strength dusting spray containing difluoroethane , which he is believed to have been inhaling. When found he did not have a pulse. [facility] staff administered CPR and EMS administered epinephrine after which he regained a pulse. EMS placed a alexis airway. Since regaining a pulse, he has been in sinus tachycardia and an adequate BP. According to medical records provided by [facility], he had dialysis today. His blood glucose per EMS was 165. Plan for EKG, exchange of ETT, labs, and further imaging. Poison Center contacted: case #[id number]. Supportive care only. 8:44 PM- EKG obtained indicated sinus tachycardia. Initial end-tidal CO2 reading is 35. IVF discontinued, pt has had 900ml NS. 8:51PM- Creatinine at 3.5 on iSTAT. This is probably at baseline due to his dialysis status. Potassium and blood sugar are adequate. 8:55 PM- Alexis airway exchanged for a 7.5 ET tube using 20mg IV etomidate and 100mg IV succinylcholine. See procedure note for more detail. 9:03 PM- Chest x-ray shows correct endotracheal to placement. Patient taken directly to CT scan. Propofol IV for sedation. 9:30 PM- I spoke to the patient's mother regarding the patient's condition by phone. I encouraged her to come to the emergency department because of his critical condition. No prior history of illicit substance abuse. 9:40 PM- back from CT scan. Blood pressure and heart rate are stable. Neuro exam unchanged; remains unresponsive and flaccid. 10:00 PM- CT scan reveals no evidence intracranial hemorrhage or CVA. EKG reveals no evidence of ACS and labs are unremarkable. Altered mental status and respiratory failure most likely secondary to inhalant abuse. I consulted the hospitalist regarding admission for this patient. Dr. Zepeda will be the admitting physician. No change in neuro exam throughout ED stay. I spent a total of 45 minutes of critical care time in obtaining history, performing a physical exam, bedside monitoring of interventions, collecting and interpreting tests and discussion with consultants but not including time spent performing procedures. Differential Diagnosis: Altered mental status including but not limited to hypoglycemia, hyperkalemia, pulmonary edema, infectious process, electrolyte abnormality, head injury, acute coronary syndrome, CVA, and intoxicants. - Data Points Laboratory Results: Laboratory Results 01/23/18 20:45 01/23/18 20:45 01/23/18 20:45 Smear Review By Luis Angel WISE MD Medications Given: Discontinued Medications Chlorhexidine Gluconate (Peridex) 15 ml PO BID BRITTNI Stop: 07/22/18 23:29 Last Admin: 01/24/18 08:59 Dose: Not Given Etomidate (Etomidate) 20 mg IVP EDNOW ONE Stop: 01/23/18 20:55 Last Admin: 01/23/18 20:56 Dose: 20 mg Propofol (Diprivan 10 Mg/Ml (Premix)) 100 mls @ 0 mls/hr IV CONT BRITTNI; Titrate PRN Reason: Protocol Stop: 07/22/18 21:29 Last Admin: 01/23/18 21:28 Dose: 100 mls Propofol (Diprivan 10 Mg/Ml (Premix)) 100 mls @ 0 mls/hr IV CONT BRITTNI; Titrate PRN Reason: Protocol Stop: 07/22/18 22:29 Last Admin: 01/23/18 22:53 Dose: 100 mls Fentanyl/Sodium Chloride (Fentanyl 10 Mcg/Ml (Premix)) 100 mls @ 0 mls/hr IV CONT BRITTNI; Per Protocol PRN Reason: Protocol Stop: 02/02/18 23:44 Last Admin: 01/24/18 00:35 Dose: 100 mls Famotidine/Sodium Chloride (Pepcid 20 Mg (Premix)) 50 mls @ 200 mls/hr IV Q12HRS BRITTNI Stop: 07/23/18 08:59 Last Admin: 01/24/18 08:59 Dose: Not Given Epinephrine HCl 1 mg/ Dextrose 250 mls @ 0 mls/hr IV CONT BRITTNI; Per Protocol PRN Reason: Protocol Stop: 07/23/18 05:59 Last Admin: 01/24/18 06:37 Dose: 250 mls Potassium Chloride (Potassium Cl 20 Meq (Premix)) 100 mls @ 50 mls/hr IV Q2H BRITTNI Stop: 01/24/18 12:59 Last Admin: 01/24/18 07:43 Dose: 100 mls Magnesium Sulfate/Dextrose (Magnesium Sulf 1 Gm (Premix)) 100 mls @ 100 mls/hr IV ONCE ONE Stop: 01/24/18 07:59 Last Admin: 01/24/18 07:41 Dose: 100 mls Insulin Human Lispro (Humalog Lispro) 0 unit SC TIDMEAL BRITTNI PRN Reason: Protocol Stop: 07/23/18 07:59 Last Admin: 01/24/18 08:59 Dose: Not Given Lorazepam (Ativan Injection) 1 - 2 mg IVP Q1H PRN PRN Reason: Agitation Stop: 07/22/18 22:21 Last Admin: 01/24/18 07:43 Dose: 2 mg Propofol (Diprivan) 40 mg IVP EDNOW ONE Stop: 01/23/18 21:53 Last Admin: 01/23/18 22:14 Dose: 40 mg Succinylcholine Chloride (Quelicin) 100 mg IVP EDNOW ONE Stop: 01/23/18 20:56 Last Admin: 01/23/18 20:57 Dose: 100 mg Departure - Departure Disposition: [facility] Inpatient Acute Clinical Impression: Respiratory failure Qualifiers: Chronicity: acute Respiratory failure complication: hypoxia Qualified Code(s): J96.01 - Acute respiratory failure with hypoxia Condition: Critical Report Scribed for: Keshia Jacobs Report Scribed by: Keyla Griffith Date of Report: 01/23/18 Time of Report: 22:23 Physician Review and Approval Statement: 01/23/18 22:23 Portions of this note were transcribed by a medical certification specialist. I personally performed a history, physical exam, medical decision making, and confirmed accuracy of information the transcribed note.
--- NOTE | 2018-01-23 21:06 | CPEKG ---
Heart Rate: 106 RR Interval: 566 P-R Interval: 144 QRSD Interval: 114 QT Interval: 380 QTC Interval: 505 P [place]: 0 QRS [place]: 0 T Wave [place]: 98 EKG Severity - ABNORMAL ECG - EKG Impression: SINUS TACHYCARDIA EKG Impression: NONSPECIFIC INTRAVENTRICULAR CONDUCTION DELAY EKG Impression: LOW VOLTAGE IN FRONTAL LEADS EKG Impression: significant artifact Electronically Signed By: Keshia Jacobs 23-Jan-2018 22:41:57
--- NOTE | 2018-01-23 21:29 | CPEKG ---
Heart Rate: 92 RR Interval: 652 P-R Interval: 156 QRSD Interval: 114 QT Interval: 424 QTC Interval: 525 P [place]: 70 QRS [place]: 180 T Wave [place]: 121 EKG Severity - ABNORMAL ECG - EKG Impression: SINUS RHYTHM EKG Impression: NONSPECIFIC INTRAVENTRICULAR CONDUCTION DELAY EKG Impression: LOW VOLTAGE WITH RIGHT AXIS DEVIATION Electronically Signed By: Keshia Jacobs 23-Jan-2018 22:41:29
[2018-01-23] MEDS ORDERED: PROPOFOL/EMULSION 100 ML IV SCH ×2 (21:30→22:30)
[2018-01-23] MEDS ORDERED: PROPOFOL 200 MG/20 ML VIAL IVP ONE (21:52)
[2018-01-23] MEDS ORDERED: ONDANSETRON 4 MG/2 ML VIAL IVP PRN (22:18)
[2018-01-23] MEDS ORDERED: ONDANSETRON DISINTEGRATING 4 MG TAB PO PRN (22:18)
[2018-01-23] MEDS ORDERED: ACETAMINOPHEN 325 MG TAB PO PRN (22:18)
[2018-01-23] MEDS ORDERED: fentanYL/NACL/100 ML BAG IV ONE (22:29)
[2018-01-23] MEDS: LORazepam 2 MG/ML INJ IVP PRN (22:52)
[2018-01-23] MEDS ORDERED: D50W 25 GM/50 ML VIAL IVP PRN (23:00)
[2018-01-23 23:19] VITALS: RESP 14
--- NOTE | 2018-01-23 23:27 | PDGENHP ---
History and Physical - Chief Complaint Found down - History of Present Illness 37 yo M w/ T1DM and recent post-infectious GM requiring HD brought to ED after being found down at [facility]. Per report he was found down next to a can of pressurized air containing difluoroethane. CPR was started as patient was reported to be pulseless and not breathing. EMS arrived and found pulses after epinephrine administration x1. He still had no respiratory drive so an airway was obtained in the field. At the time of my evaluation patient is intubated and sedated. Mother is at bedside who went shopping with him earlier today. Per her report she thought he was his normal self and nothing seemed out of the ordinary. His last HD session was yesterday and he was been receiving HD on MWF schedule History Information - Allergies/Home Medication List Allergies/Adverse Reactions: nafcillin Allergy (Verified 01/23/18 20:50) Penicillins Allergy (Verified 01/23/18 20:50) Home Medications: traZODone [traZODONE 50MG (*)] 50 mg PO HS 11/10/17 [Last Taken 11/09/17 21:00] I have personally reviewed and updated: family history, medical history - Past Medical History diabetes type 1 Additional medical history: Post-infectious GM requiring HD - Surgical History Additional surgical history: Tunneled cath RU chest - Family History Additional family history: Denies family hx of renal disease - Social History Smoking Status: Never smoked Review of Systems Review of Systems: Unable to obtain 2/2 mental status. Physical Exam Physical Exam: Temp Pulse Resp BP Pulse Ox 36.4 C 91 14 140/91 H 99 01/23/18 23:15 01/23/18 23:15 01/23/18 23:15 01/23/18 23:15 01/23/18 23:15 FIO2 (%) 40 Constitutional: appears nourished, other (Intubated, sedated) Eyes: PERRL, anicteric sclera Ears, Nose, Mouth, Throat: moist mucous membranes, no oral mucosal ulcers Cardiovascular: regular rate and rhythym, no murmur, rub, or gallop, edema ( Trace b/l VÍCTOR) Respiratory: rhonchi, other (Intubated) Gastrointestinal: normoactive bowel sounds, soft, non-tender abdomen Skin: warm, normal color Neurologic: other (Sedated) Lab Data & Imaging Review 01/23/18 20:45 01/23/18 20:45 WBC 8.14 10^3/uL (3.80-9.50) 01/23/18 20:45 RBC 3.30 10^6/uL (4.40-6.38) L 01/23/18 20:45 Hgb 9.7 g/dL (13.7-17.5) L 01/23/18 20:45 POC Hgb 11.2 gm/dL (13.7-17.5) L 01/23/18 20:50 Hct 30.8 % (40.0-51.0) L 01/23/18 20:45 POC Hct 33 % (40-51) L 01/23/18 20:50 MCV 93.3 fL (81.5-99.8) 01/23/18 20:45 MCH 29.4 pg (27.9-34.1) 01/23/18 20:45 MCHC 31.5 g/dL (32.4-36.7) L 01/23/18 20:45 RDW 15.7 % (11.5-15.2) H 01/23/18 20:45 Plt Count 161 10^3/uL (150-400) 01/23/18 20:45 MPV 8.2 fL (8.7-11.7) L 01/23/18 20:45 Neut % (Auto) Not Reported 01/23/18 20:45 Lymph % (Auto) Not Reported 01/23/18 20:45 [place] % (Auto) Not Reported 01/23/18 20:45 Eos % (Auto) Not Reported 01/23/18 20:45 Baso % (Auto) Not Reported 01/23/18 20:45 Nucleat RBC Rel Count 0.6 % (0.0-0.2) H 01/23/18 20:45 Absolute Neuts (auto) Not Reported 01/23/18 20:45 Absolute Lymphs (auto) Not Reported 01/23/18 20:45 Absolute Monos (auto) Not Reported 01/23/18 20:45 Absolute Eos (auto) Not Reported 01/23/18 20:45 Absolute Basos (auto) Not Reported 01/23/18 20:45 Absolute Nucleated RBC 0.05 10^3/uL (0-0.01) H 01/23/18 20:45 Immature Gran % Not Reported 01/23/18 20:45 Seg Neutrophils % 54 % 01/23/18 20:45 Band Neutrophils % 3 % 01/23/18 20:45 Lymphocytes % 29 % 01/23/18 20:45 Monocytes % 8 % 01/23/18 20:45 Eosinophils % 4 % 01/23/18 20:45 Metamyelocytes % 2 % 01/23/18 20:45 Immature Gran # Not Reported 01/23/18 20:45 Absolute Seg Neuts 4.40 10^/uL (1.70-6.50) 01/23/18 20:45 Absolute Band Neuts 0.24 10^3/uL (0.00-0.70) 01/23/18 20:45 Absolute Lymphocytes 2.36 10^3/uL (1.00-3.00) 01/23/18 20:45 Absolute Monocytes 0.65 10^3/uL (0.30-0.80) 01/23/18 20:45 Absolute Eosinophils 0.33 10^3/uL (0.03-0.40) 01/23/18 20:45 Absolute Metamyelocyte 0.16 10^3/mL (0.00-0.00) H 01/23/18 20:45 Platelet Estimate ADEQUATE (ADEQ) 01/23/18 20:45 Hypochromasia 1+ H 01/23/18 20:45 Basophilic Stippling 1+ H 01/23/18 20:45 Puncture Site LEFT RADIAL 01/23/18 21:25 Patient Temperature 37.0 DEGREES 01/23/18 21:25 pCO2 46 mmHg (34-38) H 01/23/18 21:25 pO2 77 mmHg (65-75) H 01/23/18 21:25 Total CO2 26 mEq/L (23-27) 01/23/18 21:25 ABG pH 7.35 (7.35-7.45) 01/23/18 21:25 ABG PO2/FiO2 Ratio 128 RATIO 01/23/18 21:25 ABG HCO3 25 mEq/L (22-26) 01/23/18 21:25 ABG O2 Saturation 95 % (92-95) 01/23/18 21:25 ABG Base Excess -0.4 mEq/L (-2.5-2.5) 01/23/18 21:25 O2 Concentration % 60 % (0-100) 01/23/18 21:25 Actual Respiration Rate 23 01/23/18 21:25 Set Respiration Rate 12 01/23/18 21:25 SIMV YES 01/23/18 21:25 Tidal Volume 500 01/23/18 21:25 End Tidal CO2 33 01/23/18 21:25 PEEP 5 01/23/18 21:25 Pressure Support 7 01/23/18 21:25 POC Sodium 138 mEq/L (135-145) 01/23/18 20:50 Sodium 138 mEq/L (135-145) 01/23/18 20:45 POC Potassium 3.1 mEq/L (3.3-5.0) L 01/23/18 20:50 Potassium 3.2 mEq/L (3.5-5.2) L 01/23/18 20:45 POC Chloride 98 mEq/L (97-110) 01/23/18 20:50 Chloride 98 mEq/L (97-110) 01/23/18 20:45 Carbon Dioxide 25 mEq/l (22-31) 01/23/18 20:45 Anion Gap 15 mEq/L (8-16) 01/23/18 20:45 POC BUN 20 mg/dL (7-23) 01/23/18 20:50 BUN 18 mg/dL (7-23) 01/23/18 20:45 Creatinine 2.6 mg/dL (0.7-1.3) H 01/23/18 20:45 POC Creatinine 2.8 mg/dL (0.7-1.3) H 01/23/18 20:50 Estimated GFR 28 01/23/18 20:45 Glucose 190 mg/dL (70-100) H 01/23/18 20:45 POC Glucose 198 mg/dL (70-100) H 01/23/18 20:50 Calcium 8.3 mg/dL (8.5-10.4) L 01/23/18 20:45 Ethyl Alcohol < 10 mg/dL (0-10) 01/23/18 20:45 Imaging Review: Imaging Impressions Head CT 01/23/18 20:42 Impression: Sensitivity somewhat limited by motion artifact at the skull base. Layering debris in the posterior nasopharynx. Otherwise, no acute intracranial abnormality. Dr. Adams discussed these findings by telephone with [place] at 2133 hours on 01/23/2018. Chest CT 01/23/18 21:17 Impression: Sensitivity of this exam is limited by motion artifact. 1. Slightly increased bibasilar dependent airspace opacities which may represent atelectasis and/or aspiration. Otherwise, extensive left peribronchial and right upper lobe consolidations present on prior exam continue to improve. 2. Stable mediastinal lymphadenopathy, likely reactive. 3. Large right, moderate left pleural effusions, similar to prior exam. 4. Anasarca, also similar to prior exam. Dr. Adams discussed these findings by telephone with [place] at 2134 hours on 01/23/2018. Assessment & Plan Assessment: 37 yo M w/ T1DM and post-infectious GM requiring HD presents with respiratory failure after inhalation of difluoroethane. Plan: 1. Respiratory Failure - 2/2 somnolence in the setting difluoroethane inhalation. Patient noted to be without respiratory drive in the field and intubated. He is currently on minimal vent settings. Unclear if cardiac arrest also occurred as pulses were quickly noted once EMS arrived. Patient did receive Epi x1 but no shocks. - Will maintain sedation and attempt to wean off ventilator in the morning 2. T1DM - Described as brittle diabetic with many prior episodes of DKA. Needs med reconciliation, will start SSI for now. 3. Post-infectious GM - Diagnosed during previous admission, currently receiving HD on MWF schedule. - Will need renal consult for ongoing HD Diet - NPO Code - Full Ppx - SCDs Dispo - Admit to ICU under inpatient status I personally spent 60 minutes of critical care time evaluating patient, interpreting data, and coordinating care.
[2018-01-23] MEDS ORDERED: CHLORHEXIDINE GLUCONATE 15 ML UDL PO SCH (23:30)
[2018-01-23] MEDS ORDERED: fentaNYL/NACL 100 ML IV SCH (23:45)
[2018-01-24 03:16] VITALS: O2SAT 95
[2018-01-24 04:18] LABS: PLATELET COUNT 80 10^3/uL (150-400)
[2018-01-24 04:53] VITALS: BP 92/58; PULSE 90; TEMP 97.5
--- NOTE | 2018-01-24 05:36 | CPEKG ---
Heart Rate: 126 RR Interval: 476 P-R Interval: 160 QRSD Interval: 98 QT Interval: 308 QTC Interval: 446 P [place]: 61 QRS [place]: 267 T Wave [place]: 104 EKG Severity - ABNORMAL ECG - EKG Impression: SINUS TACHYCARDIA EKG Impression: LOW VOLTAGE IN FRONTAL LEADS EKG Impression: CONSIDER ANTEROSEPTAL INFARCT EKG Impression: NONSPECIFIC T ABNORMALITIES, LATERAL LEADS Electronically Signed By: Priya Warren 24-Jan-2018 05:54:10
[2018-01-24] MEDS ORDERED: POTASSIUM Cl (KCl) 20 MEQ/50 ML BAG IV ONE ×2 (05:38→06:31)
[2018-01-24] MEDS ORDERED: POTASSIUM Cl (KCl) 20 MEQ/100 ML BAG IV ONE ×2 (05:39→05:40)
[2018-01-24] MEDS ORDERED: DOPamine/DEXTROSE/250 ML BAG IV ONE (06:01)
[2018-01-24] MEDS ORDERED: MAGNESIUM SULF 1 GM/DEXTROSE 100 ML BAG IV ONE (06:14)
[2018-01-24] MEDS: LORazepam 2 MG/ML INJ IVP PRN ×3 (06:36→07:43)
[2018-01-24] MEDS ORDERED: MAGNESIUM SULF 1 GM/DEXTROSE 100 ML IV ONE (07:00)
[2018-01-24] MEDS ORDERED: EPINEPHrine 1 MG/10 ML SYR IVP ONE (07:10)
[2018-01-24] MEDS: POTASSIUM Cl (KCl) 100 ML IV SCH ×3 (07:41→07:43)
[2018-01-24] MEDS ORDERED: INSULIN LISPRO 100 UNIT/ML SC SCH (08:00)
[2018-01-24] MEDS ORDERED: FAMOTIDINE 20 MG/NACL 50 ML IV SCH (09:00)
--- NOTE | 2018-01-24 09:38 | ASMTCASEMG ---
Living Arrangements What is your living Answers: With Other (Not Family) arrangement? Who do you live with? Type Of Residence What kind of residence do Answers: [facility] Facility you live in? Discharge Plan Comments Coordination Status Comments Notes: Patient is a 37yo male found unresponsive without a pulse at [facility]. (a can of industrial strength dusting spray containing difluoroethane was found next to him) [facility] staff began CPR and EMS administered epinephrine and regained pulses. EMS also placed a rosaenna airway tube for respiratory failure. Patient has been admitted for respiratory failure, T1DM (brittle diabetic), and post infectious GM which he is currently receiving HD on MWF schedule. Patient's family changed his code status to DNR on 01/23/2018, when they were informed of patient's poor prognosis. [employer] has been ordered, along with transitional care. D/C plan TBD. CM will follow. Date Signed: 01/24/2018 09:37 AM Electronically Signed By:Verenice Pratt LCSW
--- NOTE | 2018-01-24 10:06 | PDMN ---
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
--- NOTE | 2018-01-24 11:05 | PDDCSUM ---
Discharge Summary Discharge Summary: Dates of service 01/23-01/24/18 This is a summary. Please note that this patient prior to ever having been evaluated by this provider. Please see H&P for details regarding patients presentation including physical exam etc. Hospital course by problem: # acute hypoxic respiratory failure/cardiac arrest: in setting of intentional difluoroethane inhalation. Patient was intubated by EMS. Ultimately patient suffered subsequent cardiac arrest and underwent resuscitation, but family at that point elected to withdraw further aggressive care given that his outcome was felt to likely be poor. # other conditions at time of : DM, post infectious GM
== END 2018-01-24 09:45 | disposition expired | DRG 917 ==
LOC: EDUNIT# → F2N 22:33
PROVIDERS: ADMIT Student in an Organized Health Care Education/Training Program; ATTEND Student in an Organized Health Care Education/Training Program
PROC: 5A1935Z Respiratory Ventilation, Less than 24 Consecutive Hours (ICD-10-PCS; principal; 2018-01-23)
PROC: 0BH18EZ Insertion of Endotracheal Airway into Trachea, Via Natural or Artificial Opening Endoscopic (ICD-10-PCS; principal; 2018-01-23)
DX: T53.5X Toxic effects of chlorofluorocarbons (principal); I46.8 Cardiac arrest due to other underlying condition; E10.9 Type 1 diabetes mellitus without complications; N11.9 Chronic tubulo-interstitial nephritis, unspecified; N18.6 End stage renal disease; Z87.01 Personal history of pneumonia (recurrent); Z66 Do not resuscitate; Z99.2 Dependence on renal dialysis
CPT/HCPCS: 82947-QW; G0480; J0171; J0330; J1265; J2060; J2704; J3010; J3475; J3480